=== PATIENT | male | born 1960 | race Two or more races ===

== ENCOUNTER 2021-01-09 12:17 | Outpatient (REF) | payer MEDICARE, MEDICAID, SELFPAY ==
--- NOTE | 2021-01-09 13:06 | ECG_ITS ---
Test Reason : HIGH RISK MED Blood Pressure : / mmHG Vent. Rate : 068 BPM Atrial Rate : 068 BPM P-R Int : 186 ms QRS Dur : 096 ms QT Int : 416 ms P-R-T Axes : 063 038 065 degrees QTc Int : 442 ms Normal sinus rhythm Normal ECG When compared with ECG of 24-OCT-2019 11:54, No significant change was found Referred By: Sylvain Castillo Electronically Signed By:IVET JACOBS
[2021-01-09 13:17] LABS: MANUAL DIFF FLAG NO
[2021-01-09 13:18] LABS: Basophils Percent Auto 0.4 % (0-2); Eosinophils Absolute Auto 0.1 X10*3/uL (0.0-0.4); Eosinophils Percent Auto 1.7 % (0-4); Hemoglobin 12.4 g/dl (14.0-18.0); Imm Gran Abs Auto 0.01 X10*3/uL (0.00-0.03); Imm Gran Pct Auto 0.2 % (0.0-0.4); Lymphocytes Absolute Auto 1.3 X10*3/uL (1.2-4.9); Lymphocytes Percent Auto 23.1 % (20-40); Mean Corpuscular HGB Conc 33.5 g/dl (31.0-36.0); Mean Corpuscular Hemoglobin 29.7 pg (27.0-33.0); Mean Corpuscular Volume 88.7 fL (80-98); Mean Platelet Volume 8.7 fL (9.4-12.4); Monocytes Absolute Auto 0.7 X10*3/uL (0.1-1.2); Monocytes Percent Auto 12.6 % (2-11); Neutrophils Absolute Auto 3.4 X10*3/uL (2.0-8.3); Platelet Count 272 X10*3/uL (160-400); Red Blood Count 4.17 X10*6/uL (4.60-5.80); Red Cell Distribution Width 13.1 % (11.0-16.0); White Blood Count 5.4 X10*3/uL (4.8-10.8)
[2021-01-09 13:31] LABS: Estimated Average Glucose 91 mg/dL; Hemoglobin A1c % 4.8 %
[2021-01-09 13:34] LABS: Alanine Aminotransferase 17 U/L (0-40); Alkaline Phosphatase 202 U/L (39-117); Aspartate Amino Transferase 17 U/L (5-37); Sodium 131 mmol/L (135-145)
[2021-01-09 13:35] LABS: Anion Gap 13 (12-20); Blood Urea Nitrogen 9 mg/dL (9-16); Calcium 9.1 mg/dL (8.4-10.2); Carbon Dioxide 23 mmol/L (22-29); Chloride 100 mmol/L (96-108); Cholesterol 222 mg/dL; Estimated Glomerular Filt Rate > 60; Glucose Random 99 mg/dL (60-115); HDL Cholesterol 72 mg/dL; LDL Cholesterol Calculated 141 mg/dl; Potassium 4.2 mmol/L (3.3-5.1); Sodium 132 mmol/L (135-145); Triglycerides 45 mg/dL
[2021-01-14 21:45] LABS: Prolactin 35.9 ng/mL (2.0-18.0)
[2021-01-15 11:17] LABS: Lacosamide 7.5 mcg/mL
== END 2021-01-09 12:18 | disposition home or self-care (01) ==
LOC: HO.LAB 12:17
PROVIDERS: Absent Provider Psychiatry & Neurology Child & Adolescent Psychiatry; PCP Family Medicine; Visit Provider Psychiatry & Neurology Neurology
DX: F20.9 Schizophrenia, unspecified (principal); Z79.899 Other long term (current) drug therapy
CPT/HCPCS: 36415; 80048; 80061; 80175; 80235; 83036; 84075; 84146; 84295; 84450; 84460; 85025; 93005

== ENCOUNTER 2021-05-27 11:05 | Outpatient (REF) | payer MEDICARE, MEDICAID, SELFPAY ==
[2021-05-27 14:35] LABS: Alanine Aminotransferase 19 U/L (0-40); Albumin Level 3.8 g/dL (3.5-5.0); Alkaline Phosphatase 95 U/L (39-117); Anion Gap 12 (12-20); Aspartate Amino Transferase 17 U/L (5-37); Bilirubin Total 0.3 mg/dL (0.0-1.0); Blood Urea Nitrogen 7 mg/dL (9-16); Calcium 9.1 mg/dL (8.4-10.2); Carbon Dioxide 24 mmol/L (22-29); Chloride 100 mmol/L (96-108); Estimated Glomerular Filt Rate > 60; Glucose Random 119 mg/dL (60-115); Potassium 3.8 mmol/L (3.3-5.1); Sodium 132 mmol/L (135-145); Total Protein 6.6 g/dL (6.5-8.0)
== END 2021-05-27 11:06 | disposition home or self-care (01) ==
LOC: HO.WFDLDS 11:05
PROVIDERS: Family Medicine; Visit Provider Internal Medicine
DX: E87.1 Hypo-osmolality and hyponatremia (principal)
CPT/HCPCS: 36415; 80053

== ENCOUNTER 2021-08-14 13:48 | Outpatient (REF) | payer MEDICARE, MEDICAID, SELFPAY ==
[2021-08-14 14:06] LABS: MANUAL DIFF FLAG NO
[2021-08-14 14:29] LABS: Basophils Percent Auto 0.2 % (0-2); Eosinophils Absolute Auto 0.2 X10*3/uL (0.0-0.4); Eosinophils Percent Auto 2.5 % (0-4); Hematocrit 37.3 % (42.0-52.0); Imm Gran Abs Auto 0.02 X10*3/uL (0.00-0.03); Imm Gran Pct Auto 0.3 % (0.0-0.4); Lymphocytes Absolute Auto 1.3 X10*3/uL (1.2-4.9); Lymphocytes Percent Auto 19.6 % (20-40); Mean Corpuscular HGB Conc 32.2 g/dl (31.0-36.0); Mean Corpuscular Hemoglobin 29.6 pg (27.0-33.0); Mean Corpuscular Volume 92.1 fL (80.0-98.0); Mean Platelet Volume 8.9 fL (9.4-12.4); Monocytes Absolute Auto 0.6 X10*3/uL (0.1-1.2); Neutrophils Absolute Auto 4.4 x10*3/uL (2.0-8.3); Neutrophils Percent Auto 68.4 % (45-73); Platelet Count 235 X10*3/uL (160-400); Red Blood Count 4.05 X10*6/uL (4.60-5.80); Red Cell Distribution Width 12.9 % (11.0-16.0); White Blood Count 6.4 X10*3/uL (4.8-10.8)
[2021-08-14 14:32] LABS: Osmolality, Serum 282 mosm/kg (281-305)
[2021-08-14 14:58] LABS: TSH reflex Free T4 0.88 uIU/mL (0.32-4.0)
[2021-08-14 15:00] LABS: Alanine Aminotransferase 19 U/L (0-40); Albumin Level 3.7 g/dL (3.5-5.0); Alkaline Phosphatase 108 U/L (39-117); Anion Gap 15 (12-20); Aspartate Amino Transferase 17 U/L (5-37); Bilirubin Total 0.3 mg/dL (0.0-1.0); Blood Urea Nitrogen 10 mg/dL (9-16); Calcium 8.8 mg/dL (8.4-10.2); Carbon Dioxide 22 mmol/L (22-29); Chloride 102 mmol/L (96-108); Estimated Glomerular Filt Rate > 60; Glucose Random 132 mg/dL (60-115); Iron 68 mcg/dL (45-160); Percent Iron Saturation 26 % (15-50); Sodium 135 mmol/L (135-145); Total Iron Binding Capacity 266 mcg/dL (228-428); Total Protein 6.4 g/dL (6.5-8.0); Unsaturated Iron Binding 198 ug/dL
== END 2021-08-14 13:49 | disposition home or self-care (01) ==
LOC: HO.LAB 13:48
PROVIDERS: PCP Family Medicine; Visit Provider Family Medicine
DX: Z00.00 Encounter for general adult medical examination without abnormal findings (principal); E87.1 Hypo-osmolality and hyponatremia; D64.9 Anemia, unspecified
CPT/HCPCS: 36415; 80053; 83540; 83930; 84443; 85025

== ENCOUNTER 2022-01-22 09:17 | Outpatient (REF) | payer MEDICARE, MEDICAID, SELFPAY ==
[2022-01-22 11:34] LABS: Anion Gap 15 (12-20); Blood Urea Nitrogen 10 mg/dL (9-16); Carbon Dioxide 23 mmol/L (22-29); Chloride 98 mmol/L (96-108); Estimated Glomerular Filt Rate > 60; Sodium 132 mmol/L (135-145)
[2022-01-22 11:35] LABS: Calcium 8.9 mg/dL (8.4-10.2); Glucose Random 123 mg/dL (60-115)
== END 2022-01-22 09:18 | disposition home or self-care (01) ==
LOC: HO.WFDLDS 09:17
PROVIDERS: Visit Provider Hospitalist
DX: E87.1 Hypo-osmolality and hyponatremia (principal)
CPT/HCPCS: 36415; 80048

== ENCOUNTER 2022-02-03 12:51 | Outpatient (REF) | payer MEDICARE, MEDICAID, SELFPAY ==
[2022-02-03 14:42] LABS: Anion Gap 17 (12-20); Blood Urea Nitrogen 8 mg/dL (9-16); Carbon Dioxide 23 mmol/L (22-29); Chloride 98 mmol/L (96-108); Estimated Glomerular Filt Rate > 60; Glucose Random 104 mg/dL (60-115); Potassium 4.6 mmol/L (3.3-5.1); Sodium 133 mmol/L (135-145)
== END 2022-02-03 12:52 | disposition home or self-care (01) ==
LOC: HO.WFDLDS 12:51
PROVIDERS: Visit Provider Family Medicine
DX: Z00.00 Encounter for general adult medical examination without abnormal findings (principal); E87.1 Hypo-osmolality and hyponatremia
CPT/HCPCS: 36415; 80048

== ENCOUNTER 2022-02-11 10:00 | Outpatient (REF) | payer MEDICARE, MEDICAID, SELFPAY ==
[2022-02-11 11:14] LABS: MANUAL DIFF FLAG NO
[2022-02-11 11:28] LABS: Basophils Percent Auto 0.3 % (0-2); Eosinophils Percent Auto 0.4 % (0-4); Hematocrit 39.4 % (42.0-52.0); Hemoglobin 12.9 g/dl (14.0-18.0); Imm Gran Abs Auto 0.03 X10*3/uL (0.00-0.03); Imm Gran Pct Auto 0.4 % (0.0-0.4); Lymphocytes Absolute Auto 1.4 X10*3/uL (1.2-4.9); Lymphocytes Percent Auto 18.5 % (20-40); Mean Corpuscular HGB Conc 32.7 g/dl (31.0-36.0); Mean Corpuscular Hemoglobin 29.6 pg (27.0-33.0); Mean Corpuscular Volume 90.4 fL (80.0-98.0); Mean Platelet Volume 9.9 fL (9.4-12.4); Monocytes Absolute Auto 0.7 X10*3/uL (0.1-1.2); Monocytes Percent Auto 8.8 % (2-11); Neutrophils Absolute Auto 5.5 x10*3/uL (2.0-8.3); Neutrophils Percent Auto 71.6 % (45-73); Platelet Count 245 X10*3/uL (160-400); Red Blood Count 4.36 X10*6/uL (4.60-5.80); Red Cell Distribution Width 12.8 % (11.0-16.0); White Blood Count 7.6 X10*3/uL (4.8-10.8)
[2022-02-11 11:55] LABS: Alanine Aminotransferase 21 U/L (0-40); Albumin Level 3.8 g/dL (3.5-5.0); Alkaline Phosphatase 97 U/L (39-117); Anion Gap 15 (12-20); Aspartate Amino Transferase 13 U/L (5-37); Bilirubin Total 0.4 mg/dL (0.0-1.0); Blood Urea Nitrogen 12 mg/dL (9-16); Calcium 8.8 mg/dL (8.4-10.2); Carbon Dioxide 23 mmol/L (22-29); Chloride 102 mmol/L (96-108); Cholesterol 254 mg/dL; Estimated Glomerular Filt Rate > 60; Glucose Fasting 144 mg/dL (60-99); HDL Cholesterol 73 mg/dL; Iron 170 mcg/dL (45-160); LDL Cholesterol Calculated 170 mg/dl; Percent Iron Saturation 60 % (15-50); Potassium 3.9 mmol/L (3.3-5.1); Sodium 136 mmol/L (135-145); Total Iron Binding Capacity 284 mcg/dL (228-428); Total Protein 6.5 g/dL (6.5-8.0); Triglycerides 58 mg/dL; Unsaturated Iron Binding 114 ug/dL
[2022-02-11 12:20] LABS: TSH reflex Free T4 0.83 uIU/mL (0.32-4.0)
== END 2022-02-11 10:01 | disposition home or self-care (01) ==
LOC: HO.WFDLDS 10:00
PROVIDERS: Visit Provider Family Medicine
DX: Z00.00 Encounter for general adult medical examination without abnormal findings (principal); D64.9 Anemia, unspecified
CPT/HCPCS: 36415; 80053; 80061; 83540; 84443; 85025

== ENCOUNTER 2022-04-20 11:08 | Outpatient (REF) | payer MEDICARE, MEDICAID, SELFPAY ==
[2022-04-20 13:52] LABS: MANUAL DIFF FLAG NO
[2022-04-20 14:00] LABS: Basophils Percent Auto 0.2 % (0-2); Eosinophils Percent Auto 0.6 % (0-4); Hematocrit 37.4 % (42.0-52.0); Hemoglobin 12.3 g/dl (14.0-18.0); Imm Gran Abs Auto 0.02 X10*3/uL (0.00-0.03); Imm Gran Pct Auto 0.4 % (0.0-0.4); Lymphocytes Absolute Auto 1.4 X10*3/uL (1.2-4.9); Mean Corpuscular HGB Conc 32.9 g/dl (31.0-36.0); Mean Corpuscular Hemoglobin 29.5 pg (27.0-33.0); Mean Corpuscular Volume 89.7 fL (80.0-98.0); Mean Platelet Volume 9.5 fL (9.4-12.4); Monocytes Absolute Auto 0.7 X10*3/uL (0.1-1.2); Monocytes Percent Auto 13.2 % (2-11); Neutrophils Absolute Auto 2.9 x10*3/uL (2.0-8.3); Neutrophils Percent Auto 58.6 % (45-73); Platelet Count 251 X10*3/uL (160-400); Red Blood Count 4.17 X10*6/uL (4.60-5.80); Red Cell Distribution Width 13.2 % (11.0-16.0)
[2022-04-20 14:13] LABS: Anion Gap 11 (12-20); Blood Urea Nitrogen 9 mg/dL (9-16); Calcium 8.7 mg/dL (8.4-10.2); Carbon Dioxide 25 mmol/L (22-29); Chloride 104 mmol/L (96-108); Estimated Glomerular Filt Rate > 60; Glucose Random 85 mg/dL (60-115); Potassium 4.1 mmol/L (3.3-5.1); Sodium 136 mmol/L (135-145)
== END 2022-04-20 11:09 | disposition home or self-care (01) ==
LOC: HO.WFDLDS 11:08
PROVIDERS: PCP Family Medicine; Visit Provider Student in an Organized Health Care Education/Training Program
DX: D64.9 Anemia, unspecified (principal); N39.0 Urinary tract infection, site not specified; E87.8 Other disorders of electrolyte and fluid balance, not elsewhere classified
CPT/HCPCS: 36415; 80048; 85025

== ENCOUNTER 2022-05-20 09:38 | Outpatient (REF) | payer MEDICARE, MEDICAID, SELFPAY ==
[2022-05-20 12:27] LABS: Anion Gap 13 (12-20); Blood Urea Nitrogen 10 mg/dL (9-16); Carbon Dioxide 26 mmol/L (22-29); Chloride 102 mmol/L (96-108); Estimated Glomerular Filt Rate > 60; Glucose Random 92 mg/dL (60-115); Potassium 3.8 mmol/L (3.3-5.1); Sodium 137 mmol/L (135-145)
== END 2022-05-20 09:39 | disposition home or self-care (01) ==
LOC: HO.WFDLDS 09:38
PROVIDERS: Visit Provider Family Medicine
DX: Z00.00 Encounter for general adult medical examination without abnormal findings (principal); E87.1 Hypo-osmolality and hyponatremia
CPT/HCPCS: 36415; 80048

== ENCOUNTER 2022-11-11 13:30 | Outpatient (AMB) | payer MEDICARE, MEDICAID, SELFPAY ==
--- NOTE | 2022-11-11 13:31 | MHC.PC.OV ---
Vital Signs 11/11/22 13:37 BMI Reason not done Patient refused/unable BP 112/62 Blood Pressure Location Lt brachial Position Sitting Respiration 16 Pulse 72 Pulse Source Pulse Oximeter Temp 97.8 F Temp Source Core Pulse Oximetry (%) 99 Intake Visit Reasons: [facility] 11/05/22 - seizures and UTI Intake Note: Patient is here for follow up on [facility] for seizures and UTI. Notes are in his chart. Allergies No Known Allergies Allergy (Unknown, Verified 11/11/22 14:01) none Medication List - Last Reconciled 11/11/22 by Faisal Radford CNP acetaminophen 650 mg (2 x 325 mg) PO Q6H PRN 30 days amoxicillin 875 mg PO BID bisacodyl 10 mg [place] DAILY 90 days cholecalciferol (vitamin D3) 50 mcg PO QAM diazepam (Valtoco) mg intranasal disposable gloves (Disposable Latex-Free Gloves) As directed size medium /large docusate sodium (Stool Softener) 200 mg (2 x 100 mg) PO BID ferrous gluconate 324 mg PO DAILY 30 days gabapentin 200 mg (2 x 100 mg) PO BEDTIME 30 days guaifenesin ER (Mucinex) 600 mg PO Q12H PRN lacosamide 150 mg PO 1 tab in am, 0.5 tabs at noon, 2 tabs in the pm; lactulose (Enulose) 30 mL PO TID 30 days lamotrigine 100 mg PO .evening lamotrigine 200 mg PO Q8H levetiracetam (Keppra) 250 mg PO BID levetiracetam (Keppra) 1,000 mg PO BID magnesium oxide 400 mg PO DAILY omeprazole magnesium (Prilosec OTC) 20 mg PO DAILY 90 days oxcarbazepine (Trileptal) 600 mg PO .afternoon oxcarbazepine 1 tab in the am, 2 at noon, and 3 at hs PO; oxcarbazepine (Trileptal) 300 mg PO .evening oxcarbazepine (Trileptal) 900 mg PO BID risperidone 1.5 mg PO BID PRN sennosides 17.2 mg PO BID sennosides (senna) 17.2 mg (2 x 8.6 mg) PO BID 30 days simethicone (Gas Relief 80 (simethicone)) 80 mg PO TID 90 days sodium chloride 1,000 mg PO BID sodium phosphates 19-7 gram/118 mL (Enema Disposable) 118 mL NM DAILY PRN 30 days starch (thickening) (Thick-It oral powder) 1 ea PO TIDWMEAL underpads As directed Tobacco use date assessed: 11/11/22 Dental Screening Dental Screen Date: 11/11/22 Did you have a dental visit in the last 12 months?: No Did you have a dental problem in the last 6 months where you did not have access to dental care?: No Was dental information given to patient?: No HPI HPI Comments History of Present Illness Details 61-year-old male with past medical history significant for TBI, right-sided hemiparesis, expressive aphasia, seizure disorder, and cognitive impairment presents for a follow-up visit. He lives in a intermediate and accompanied, in a wheelchair, by intermediate staff He was admitted at [facility] between 10/31/2022 and 11/05/2022 and treated for seizures and UTI. He was discharged back to intermediate on Augmentin and recommendation for urology follow-up No acute symptoms today Patient is at baseline pack intermediate staff [facility] Medical History TBI (traumatic brain injury) Surgical History History of craniotomy Family History Father Dementia Chronic mental illness Mother Hypertension Social History Housing: Other Housing Other:: Intermediate Patient Tobacco Use Status: Never used Tobacco e-Cigarette/Vaping Use: Never Used Second Hand Smoke Exposure: No service: No Current occupational status: disabled Current occupational exposures/hazards: No Cognitive needs: Yes Hearing needs: Yes Vision needs: No Questionnaire PHQ-9 Over the last 2 weeks, how often have you been bothered by any of the following problems? 1. Little interest or pleasure in doing things: not at all 2. Feeling down, depressed, or hopeless: not at all 3. Trouble falling or staying asleep, or sleeping too much: not at all 4. Feeling tired or having little energy: not at all 5. Poor appetite or overeating: not at all 6. Feeling bad about yourself - or that you are a failure or have let yourself or your family down: not at all 7. Trouble concentrating on things, such as reading the newspaper or watching television: not at all 8. Moving or speaking so slowly that other people could have noticed. Or the opposite - being so fidgety or restless that you have been moving around a lot more than usual: not at all 9. Thoughts that you would be better off or of hurting yourself in some way: not at all Total score: 0 Depression Screening Interpretation: Negative Source: Developed by Drs. Jose Aldana, Stephanie Lin, Shahriar Soto and colleagues, with an educational jose from [employer]. Thrive Questionnaire Date Thrive assessed: 05/20/22 KRYSTIAN-7 AMB Questionnaire KRYSTIAN-7 Date KRYSTIAN - 7 assessed: 05/20/22 Source: Developed by Drs. Jose Aldana, Stephanie Lin, Shahriar Soto and colleagues, with an educational jose from [employer]. Review of Systems Const Details: Const Denies chills, Denies fatigue, Denies fever(s), Denies headache(s) and Denies weakness ENT Denies change in vision, Denies dizziness, Denies headache(s), Denies hearing loss, Denies nasal congestion, Denies sinus pain, Denies sinus pressure and Denies sore throat Resp Denies cough, Denies dyspnea, Denies wheezing and Denies other (shortness of breath) Cardio Denies chest pain, Denies lightheadedness, Denies dyspnea and Denies other (palpitations) Neuro Denies dizziness, Denies headache(s), Denies numbness, Denies tingling and Denies weakness Psych Denies anxiety, Denies depression Endo Denies cold intolerance, Denies fatigue, Denies heat intolerance, Denies polydipsia and Denies polyuria Aller/Immun Denies wheezing Physical exam (Primary Care) Vital Signs: Last Vital Signs Temp 97.8 F 11/11/22 13:37 Pulse 72 11/11/22 13:37 Resp 16 11/11/22 13:37 BP 112/62 11/11/22 13:37 Pulse Ox 99 11/11/22 13:37 Tobacco/Smoking Status: Tobacco use Status Tobacco use date assessed 11/11/22 11/11/22 13:42 Patient Tobacco Use Status Never used Tobacco 11/11/22 13:34 e-Cigarette/Vaping Use Never Used 11/11/22 13:34 PHQ-9: PHQ-9 Score PHQ-9: Total score 0 11/11/22 14:04 Depression Screening Interpretation: Negative Thrive Assessment: Date of Thrive Assessment Date Thrive assessed 05/20/22 11/11/22 13:34 Const Other: Const General: well developed; No acute distress Nutritional Appearance: well nourished Orientation/consciousness: patient oriented x3 HEENT Head: Yes normocephalic and Yes atraumatic Eyes General: appearance normal, both eyes and all related structures Pupils: Equal, round and reactive pupils present EOM: EOMs intact bilaterally Resp Effort & Inspection: normal respiratory effort Auscultation: clear to auscultation bilaterally Cardio Rate: regular rate Rhythm: regular rhythm Heart sounds: S1 normal heart sound present, S2 normal heart sound present, no gallops, no murmurs and no rubs Bruits: no abdominal aortic bruits and no carotid bruits Neuro General: patient is alert, w/c bound, apparent focal neuro deficit Cranial nerves: Yes Equal, round and reactive pupils present Psych Affect: normal affect Assessment and Plan Assessment & Plan (1) Hospital discharge follow-up: Code(s): Z09 - Encounter for follow-up examination after completed treatment for conditions other than malignant neoplasm Plan: Patient presents for recent hospitalization follow-up visit He was treated for UTI and seizures He was discharged to the intermediate on Augmentin and recommendation for urology follow-up for recurrent UTI He is baseline per intermediate staff No acute symptoms today Urology referral made Follow-up with PCP as planned or return sooner with new or worsening symptoms Verbalized understanding and agreed with treatment plan. (2) Recurrent UTI: Code(s): N39.0 - Urinary tract infection, site not specified Plan: As above Orders: Referrals Urology Referral N39.0 - Urinary tract infection, site not specified Medications: New miscellaneous medical supply as directed; 1 month 2 ea 6RF miscellaneous medical supply Extra large briefs 1 month 140 ea 6RF miscellaneous medical supply Reusable under pads 1 month 2 ea 6RF miscellaneous medical supply Complete catheter kit 1 month 2 ea 6RF miscellaneous medical supply Extra large briefs 1 month 140 ea 6RF miscellaneous medical supply Reusable under pads 1 month 2 ea 6RF miscellaneous medical supply Complete catheter kit 1 month 2 ea 6RF miscellaneous medical supply Complete catheter kit 1 month 2 ea 6RF Refilled disposable gloves (Disposable Latex-Free Gloves) As directed size medium /large 1,000 ea 6RF R56.9 - Unspecified convulsions underpads As directed 72 ea 6RF R56.9 - Unspecified convulsions underpads As directed 72 ea 6RF R56.9 - Unspecified convulsions disposable gloves (Disposable Latex-Free Gloves) As directed size medium /large 1,000 ea 6RF R56.9 - Unspecified convulsions Coding Level of Care Code Est Pt Level 3 (38788) Diagnoses Hospital discharge follow-up Z09 Recurrent UTI N39.0 Time Spent (min) 25
[2022-11-11 13:37] VITALS: BP 112/62; PULSE 72; RESP 16; TEMP 36.6; O2SAT 99
== END 2022-11-11 14:16 | disposition home or self-care (01) ==
PROVIDERS: PCP Family Medicine; Visit Provider Nurse Practitioner Family
DX: Z09 Encounter for follow-up examination after completed treatment for conditions other than malignant neoplasm (principal); N39.0 Urinary tract infection, site not specified
CPT/HCPCS: 99213

== ENCOUNTER 2022-12-04 15:21 | Outpatient (AMB) | payer MEDICARE, MEDICAID, SELFPAY ==
--- NOTE | 2022-12-04 15:23 | MHC.PC.OV ---
Vital Signs 12/04/22 15:28 BP 120/72 Blood Pressure Location Lt brachial Position Sitting Pulse 70 Pulse Source Pulse Oximeter Pulse Oximetry (%) 97 Oxygen Delivery Method Room Air Intake Visit Reasons: Thrush on tongue Intake Note: pt is here for c/o thrush on tongue Ticket Speculator Required: No Accompanied by: Other Relationship Allergies No Known Allergies Allergy (Unknown, Verified 12/04/22 15:46) none Medication List - Last Reconciled 12/04/22 by Faisal Radford CNP acetaminophen 650 mg (2 x 325 mg) PO Q6H PRN 30 days bisacodyl 10 mg [place] DAILY 90 days cholecalciferol (vitamin D3) 50 mcg PO QAM diazepam (Valtoco) mg intranasal disposable gloves (Disposable Latex-Free Gloves) As directed size medium /large docusate sodium (Stool Softener) 200 mg (2 x 100 mg) PO BID ferrous gluconate 324 mg PO DAILY 30 days gabapentin 200 mg (2 x 100 mg) PO BEDTIME 30 days guaifenesin ER (Mucinex) 600 mg PO Q12H PRN lacosamide 150 mg PO 1 tab in am, 0.5 tabs at noon, 2 tabs in the pm; lactulose (Enulose) 30 mL PO TID 30 days lamotrigine 100 mg PO .evening lamotrigine 200 mg PO Q8H levetiracetam (Keppra) 250 mg PO BID levetiracetam (Keppra) 1,000 mg PO BID magnesium oxide 400 mg PO DAILY miscellaneous medical supply Extra large briefs 1 month miscellaneous medical supply Reusable under pads 1 month miscellaneous medical supply Complete catheter kit 1 month omeprazole 20 mg PO DAILY oxcarbazepine (Trileptal) 600 mg PO .afternoon oxcarbazepine 1 tab in the am, 2 at noon, and 3 at hs PO; oxcarbazepine (Trileptal) 300 mg PO .evening oxcarbazepine (Trileptal) 900 mg PO BID risperidone 1.5 mg PO BID PRN sennosides (senna) 17.2 mg (2 x 8.6 mg) PO BID 30 days simethicone (Gas Relief 80 (simethicone)) 80 mg PO TID 90 days sodium chloride 1,000 mg PO BID sodium phosphates 19-7 gram/118 mL (Enema Disposable) 118 mL [place] DAILY PRN 30 days starch (thickening) (Thick-It oral powder) 1 ea PO TIDWMEAL underpads As directed Tobacco use date assessed: 11/11/22 Dental Screening Dental Screen Date: 12/04/22 Did you have a dental visit in the last 12 months?: Yes Did you have a dental problem in the last 6 months where you did not have access to dental care?: No Was dental information given to patient?: Patient has dentist HPI HPI Comments History of Present Illness Details 61-year-old male, accompanied by longterm staff, presents with complaints of thrush on his tongue. According to longterm staff, the nurse noticed thrush on the the patient's tongue 5 days ago. He was on antibiotic last month for UTI. No acute symptoms PFSH Medical History TBI (traumatic brain injury) Surgical History History of craniotomy Family History Father Dementia Chronic mental illness Mother Hypertension Social History Housing: Other Housing Other:: Skilled Nursing Patient Tobacco Use Status: Never used Tobacco e-Cigarette/Vaping Use: Never Used Second Hand Smoke Exposure: No service: No Current occupational status: disabled Current occupational exposures/hazards: No Cognitive needs: Yes Hearing needs: Yes Vision needs: No Questionnaire Thrive Questionnaire Date Thrive assessed: 05/20/22 KRYSTIAN-7 AMB Questionnaire KRYSTIAN-7 Date KRYSTIAN - 7 assessed: 05/20/22 Source: Developed by Drs. Jose Aldana, Stephanie Lin, Shahriar Soto and colleagues, with an educational jose from [employer]. Review of Systems Const Details: Const Denies chills, Denies fatigue, Denies fever(s), Denies headache(s) and Denies weakness ENT Reports as per HPI Card Denies chest pain, Denies lightheadedness, Denies dyspnea and Denies other (Palpitations) Resp Denies cough, Denies dyspnea, Denies wheezing and Denies other ( shortness of breath) GI Denies abdominal pain, Denies melena, Denies hematochezia, Denies change in bowel habits, Denies dyspepsia and Denies nausea Denies hematuria and Denies dysuria Musc Denies abnormal gait, Denies myalgias, Denies arthralgias, Denies numbness and Denies tingling Skin/Breast Denies rash, Denies unusual bruising and Denies wounds Neuro Denies dizziness, Denies headache(s), Denies memory loss, Denies numbness, Denies Sensory deficit (Neuro), Denies tingling and Denies weakness Psych Denies anxiety and Denies depression Endo Denies fatigue Aller/Immun Denies wheezing Physical exam (Primary Care) Vital Signs: Last Vital Signs Pulse 70 12/04/22 15:28 BP 120/72 12/04/22 15:28 Pulse Ox 97 12/04/22 15:28 Oxygen Delivery Method Room Air 12/04/22 15:28 Tobacco/Smoking Status: Tobacco use Status Tobacco use date assessed 11/11/22 12/04/22 15:26 Patient Tobacco Use Status Never used Tobacco 12/04/22 15:26 e-Cigarette/Vaping Use Never Used 12/04/22 15:26 Thrive Assessment: Date of Thrive Assessment Date Thrive assessed 05/20/22 12/04/22 15:26 Const Other: Const General: well developed; No acute distress Nutritional Appearance: well nourished Orientation/consciousness: patient is alert, nonverbal HEENT Head is normocephalic Bilateral ear canal and TM are normal Nasal turbinates and oropharynx are pink and moist Sinuses are nontender with palpation No auricular or cervical lymphadenopathy White patches noted on the patient tongue; consistent with oral candidiasis Eyes General: appearance normal, both eyes and all related structures Pupils: Equal, round and reactive pupils present EOM: EOMs intact bilaterally Resp Effort & Inspection: normal respiratory effort Auscultation: clear to auscultation bilaterally Cardio Rate: regular rate Rhythm: regular rhythm Heart sounds: S1 normal heart sound present, S2 normal heart sound present, no gallops, no murmurs and no rubs Bruits: no abdominal aortic bruits and no carotid bruits Neuro General: patient is alert, nonverbal, follows commands Cranial nerves: Yes Equal, round and reactive pupils present Psych Affect: normal affect Assessment and Plan Assessment & Plan (1) Oral candidiasis: Code(s): B37.0 - Candidal stomatitis Plan: White patches noted on the patient tongue Fluconazole ordered. Take as prescribed Hold valtoco until completion of fluconazole Follow-up with worsening or new signs and symptoms Verbalized understanding and agreed with treatment plan. Medications: New fluconazole (Diflucan) 100 mg PO DAILY 7 days 7 tabs 0RF Coding Level of Care Code Est Pt Level 3 (94463) Diagnoses Oral candidiasis B37.0 Time Spent (min) 25
[2022-12-04 15:28] VITALS: BP 120/72; PULSE 70; O2SAT 97
== END 2022-12-04 16:19 | disposition home or self-care (01) ==
PROVIDERS: PCP Family Medicine; Visit Provider Nurse Practitioner Family
DX: B37.0 Candidal stomatitis (principal)
CPT/HCPCS: 99213

== ENCOUNTER 2023-01-11 14:59 | Outpatient (AMB) | payer MEDICARE, MEDICAID, SELFPAY ==
--- NOTE | 2023-01-11 13:39 | MHC.PC.OV ---
Vital Signs 01/11/23 15:07 Weight 211 lb BMI Reason not done Patient refused/unable BP 124/64 Blood Pressure Location Rt brachial Position Sitting Respiration 12 Pulse 72 Pulse Source Pulse Oximeter Temp 97.9 F Temp Source Temporal Artery Scan Pulse Oximetry (%) 99 Oxygen Delivery Method Room Air Intake Visit Reasons: [facility]/8-24/8-29/Seizures Intake Note: Patient's oncology social work states that all the miscellaneous medical supply on med list needs to be sent to [facility]. [phone] is the fax number to [facility] [employer] over orders. Accompanied by: heliarc welder Allergies No Known Allergies Allergy (Unknown, Verified 01/11/23 15:29) none Medication List - Last Reviewed 01/11/23 by Louise Villanueva MA acetaminophen 650 mg (2 x 325 mg) PO Q6H PRN 30 days bisacodyl 10 mg [place] DAILY 90 days cholecalciferol (vitamin D3) 50 mcg PO QAM diazepam (Valtoco) mg intranasal disposable gloves (Disposable Latex-Free Gloves) As directed size medium /large docusate sodium (Stool Softener) 200 mg (2 x 100 mg) PO BID ferrous gluconate 324 mg PO DAILY 30 days gabapentin 200 mg (2 x 100 mg) PO BEDTIME 30 days guaifenesin ER (Mucinex) 600 mg PO Q12H PRN lacosamide 150 mg PO 1 tab in am, 0.5 tabs at noon, 2 tabs in the pm; lactulose (Enulose) 30 mL PO TID 30 days lamotrigine 200 mg PO TID lamotrigine 100 mg PO BEDTIME levetiracetam (Keppra) 1,500 mg PO BID magnesium oxide 400 mg PO DAILY miscellaneous medical supply Extra large briefs 1 month miscellaneous medical supply Reusable under pads 1 month miscellaneous medical supply Complete catheter kit 1 month omeprazole 20 mg PO DAILY oxcarbazepine (Trileptal) 600 mg PO .afternoon oxcarbazepine (Trileptal) 300 mg PO .evening oxcarbazepine (Trileptal) 900 mg PO BEDTIME risperidone 2 mg PO BID PRN sennosides (senna) 17.2 mg (2 x 8.6 mg) PO BID 30 days simethicone (Gas Relief 80 (simethicone)) 80 mg PO TID 90 days sodium phosphates 19-7 gram/118 mL (Enema Disposable) 118 mL [place] DAILY PRN 30 days starch (thickening) (Thick-It oral powder) 1 ea PO TIDWMEAL underpads As directed Tobacco use date assessed: 11/11/22 Dental Screening Dental Screen Date: 01/11/23 Did you have a dental visit in the last 12 months?: Yes Did you have a dental problem in the last 6 months where you did not have access to dental care?: No Was dental information given to patient?: Patient has dentist HPI HPI Comments History of Present Illness Details 62-year-old male with past medical history significant for TBI, right-sided hemiparesis, expressive aphasia, seizure disorder, and cognitive impairment, presents for a follow-up visit. [facility] and accompanied, in a wheelchair, by director group sales. He was admitted at [facility] between 12/25/2022 and 12/29/2022 and treated for seizure-like activity. At home, he takes Vimpat, oxcarbazepine, lamotrigine, and Keppra for seizure disorder. His roommate at the prison was positive for COVID. Patient's initial COVID test was negative; repeat COVID test was positive; CXR unremarkable. Sodium was elevated, 150; blood work was otherwise unremarkable. Blood culture was negative. However, urine culture grew E coli; he completed 5-day course of ceftriaxone. Keppra was increased from 1250 mg twice daily to 1500 mg twice daily. He was advised to hold sodium chloride and follow-up with Neurology and his PCP. He was [facility] back to the prison. Patted marketing and communications officer, the patient has a follow-up appointment with Neurology next month. No acute symptoms today. Patient is at baseline pack director group sales. COUNTS INCLUDE 234 BEDS AT THE [facility] Medical History TBI (traumatic brain injury) Surgical History History of craniotomy Family History Father Dementia Chronic mental illness Mother Hypertension Social History (Reviewed 12/04/22 @ 15:24 by JAMES Lieberman Housing: Other Housing Other:: Residential Patient Tobacco Use Status: Never used Tobacco e-Cigarette/Vaping Use: Never Used Second Hand Smoke Exposure: No service: No Current occupational status: disabled Current occupational exposures/hazards: No Cognitive needs: Yes Hearing needs: Yes Vision needs: No Questionnaire Thrive Questionnaire Date Thrive assessed: 05/20/22 KRYSTIAN-7 AMB Questionnaire KRYSTIAN-7 Date KRYSTIAN - 7 assessed: 05/20/22 Source: Developed by Drs. Jose Aldana, Stephanie Lin, Shahriar Soto and colleagues, with an educational jose from [employer]. Review of Systems Const Details: Const Details: Const Denies chills, Denies fatigue, Denies fever(s), Denies headache(s) and Denies weakness ENT Denies dizziness and Denies headache(s) Card Denies chest pain, Denies lightheadedness, Denies dyspnea and Denies other (Palpitations) Resp Denies cough, Denies dyspnea, Denies wheezing and Denies other ( shortness of breath) GI Denies abdominal pain, Denies melena, Denies hematochezia, Denies change in bowel habits, Denies dyspepsia and Denies nausea Denies hematuria and Denies dysuria Musc Denies abnormal gait, Denies myalgias, Denies arthralgias, Denies numbness and Denies tingling Skin/Breast Denies rash, Denies unusual bruising and Denies wounds Neuro Denies dizziness, Denies headache(s), Denies memory loss, Denies numbness, Denies Sensory deficit (Neuro), Denies tingling and Denies weakness Psych Denies anxiety and Denies depression Endo Denies fatigue Aller/Immun Denies wheezing Physical exam (Primary Care) Tobacco/Smoking Status: Tobacco use Status Tobacco use date assessed 11/11/22 01/11/23 13:52 Patient Tobacco Use Status Never used Tobacco 01/11/23 13:52 e-Cigarette/Vaping Use Never Used 01/11/23 13:52 Thrive Assessment: Date of Thrive Assessment Date Thrive assessed 05/20/22 01/11/23 13:52 Const Other: Const Other: Const General: well developed; No acute distress Nutritional Appearance: well nourished Orientation/consciousness: patient is alert, nonverbal HEENT Head: Yes normocephalic and Yes atraumatic Eyes General: appearance normal, both eyes and all related structures Pupils: Equal, round and reactive pupils present EOM: EOMs intact bilaterally Resp Effort & Inspection: normal respiratory effort Auscultation: clear to auscultation bilaterally Cardio Rate: regular rate Rhythm: regular rhythm Heart sounds: S1 normal heart sound present, S2 normal heart sound present, no gallops, no murmurs and no rubs Bruits: no abdominal aortic bruits and no carotid bruits Neuro General: patient is alert, nonverbal, follows commands Cranial nerves: Yes Equal, round and reactive pupils present Psych Affect: normal affect Assessment and Plan Assessment & Plan (1) Seizures: Code(s): R56.9 - Unspecified convulsions Plan: Stable Continue with current treatment plan Follow-up with Neurology as scheduled Follow-up with PCP later this month as scheduled Return sooner with new or worsening symptoms Verbalized understanding and agreed with treatment plan. Medications: Changed From lamotrigine 200 mg PO Q8H 90 tabs 0RF To lamotrigine 200 mg PO TID Refilled miscellaneous medical supply Extra large briefs 1 month 140 ea 6RF miscellaneous medical supply Reusable under pads 1 month 2 ea 6RF miscellaneous medical supply Complete catheter kit 1 month 2 ea 6RF Coding Level of Care Code Est Pt Level 3 (19646) Diagnoses Seizures R56.9
[2023-01-11 15:07] VITALS: BP 124/64; PULSE 72; RESP 12; TEMP 36.6; O2SAT 99
== END 2023-01-11 16:25 | disposition home or self-care (01) ==
PROVIDERS: PCP Family Medicine; Visit Provider Nurse Practitioner Family
DX: R56.9 Unspecified convulsions (principal)
CPT/HCPCS: 99213

== ENCOUNTER 2023-01-20 14:08 | Outpatient (AMB) | payer MEDICARE, MEDICAID, SELFPAY ==
--- NOTE | 2023-01-20 14:19 | MHC.OFFVIS ---
Intake Intake Visit Reasons: Urinary tract infection Intake Note: New Patient presents for initial visit recurrent uti Urology Medications: none Blood Thinner: none PVR: 58ml's Green House Manager Required: No Accompanied by: CUSTOMER ACCOUNT COORDINATOR Allergies No Known Allergies Allergy (Unknown, Verified 01/20/23 14:51) none Medication List - Last Reconciled 01/20/23 by MAKENZIE AntonioP-BC acetaminophen 650 mg (2 x 325 mg) PO Q6H PRN 30 days ascorbic acid (vitamin C) 1 g PO DAILY 90 days bisacodyl 10 mg MD DAILY 90 days cholecalciferol (vitamin D3) 50 mcg PO QAM diazepam (Valtoco) mg intranasal disposable gloves (Disposable Latex-Free Gloves) As directed size medium /large docusate sodium (Stool Softener) 200 mg (2 x 100 mg) PO BID ferrous gluconate 324 mg PO DAILY 30 days gabapentin 200 mg (2 x 100 mg) PO BEDTIME 30 days guaifenesin ER (Mucinex) 600 mg PO Q12H PRN lacosamide 150 mg PO 1 tab in am, 0.5 tabs at noon, 2 tabs in the pm; lactulose (Enulose) 30 mL PO TID 30 days lamotrigine 200 mg PO TID lamotrigine 100 mg PO BEDTIME levetiracetam (Keppra) 1,500 mg PO BID magnesium oxide 400 mg PO DAILY methenamine hippurate 1 g PO DAILY 90 days miscellaneous medical supply Extra large briefs 1 month miscellaneous medical supply Reusable under pads 1 month miscellaneous medical supply Complete catheter kit 1 month omeprazole 20 mg PO DAILY oxcarbazepine (Trileptal) 600 mg PO .afternoon oxcarbazepine (Trileptal) 300 mg PO .evening oxcarbazepine (Trileptal) 900 mg PO BEDTIME risperidone 2 mg PO BID PRN sennosides (senna) 17.2 mg (2 x 8.6 mg) PO BID 30 days simethicone (Gas Relief 80 (simethicone)) 80 mg PO TID 90 days sodium phosphates 19-7 gram/118 mL (Enema Disposable) 118 mL MD DAILY PRN 30 days starch (thickening) (Thick-It oral powder) 1 ea PO TIDWMEAL tamsulosin 0.4 mg PO BEDTIME 90 days underpads As directed HPI HPI Comments History of Present Illness Details Andrei is a pleasant 62 year old male patient of Dr. Oliva who is accompnaied by his CUSTOMER ACCOUNT COORDINATOR worker from his snf. He has a PMH of a TBI, constipation, and seizures. He presents to the office today as a new patient for recurrent urinary tract infections. Much of today's history is provided by CUSTOMER ACCOUNT COORDINATOR worker from snf as patient slow to respond and answers questions inappropriately at times. CUSTOMER ACCOUNT COORDINATOR worker reports patient has had recurrent urinary tract infections over the last few months. She reports typically urinary tract infections are further investigated when patient experiences foul-smelling urine. She discusses patient is typically incontinent of urine. She discusses patient's previous hospitalization due to seizures at which time patient was found to have a urinary tract infection. Unable to obtain urine for urinalysis today however PVR 58 mL. Discussed obtaining retroperitoneal ultrasound for further assessment evaluation as well as PSA. Discussed trial of tamsulosin 0.4 mg daily to assist with complete bladder emptying. Discussed methenamine verses vitamin-C or low-dose antibiotic suppression therapy for recurrent urinary tract infections. Discussed potential near future in office cystoscopy if symptoms persist and/or worsen. She otherwise denies patient to have experienced any fever, chills, and or hematuria. [facility] Medical History Constipation Seizures TBI (traumatic brain injury) Surgical History History of craniotomy Family History Father Dementia Chronic mental illness Mother Hypertension Social History Housing: Other Housing Other:: Alf Patient Tobacco Use Status: Never used Tobacco e-Cigarette/Vaping Use: Never Used Second Hand Smoke Exposure: No service: No Current occupational status: disabled Current occupational exposures/hazards: No Cognitive needs: Yes Hearing needs: Yes Vision needs: No Review of Systems Const Reports as per HPI Eyes Reports no additional complaints ENT Reports no additional complaints Card Reports no additional complaints Physical Exam Const General: cooperative, comfortable, no acute distress, well developed, alert and awake Orientation/consciousness: oriented to person Limitations: wheelchair Resp Effort & Inspection: normal respiratory effort Neuro General: oriented to person Extrem General: Yes normal to inspection Psych Appearance: well kempt Mental Status: other (patient with PMH of TBI slow to respond and poor historian) Attitude: cooperative Insight: Limited insight present (Psych) Judgement: Limited judgement present (Psych) Office Procedures Post Void Residual Post Residual Void Post Void Residual (PVR): 58 [id number] Void Residual by ultrasound Assessment & Plan Assessment & Plan (1) Recurrent UTI: Code(s): N39.0 - Urinary tract infection, site not specified Plan Unable to obtain urine for urinalysis however PVR 58ml's Discussed at length potential causes for recurrent urinary tract infections. Will obtain retroperitoneal ultrasound for further assessment evaluation. Start methenamine, vitamin-C, and Flomax as discussed and prescribed. Discussed UTI prevention with increasing fluid intake, behavioral therapy with timed voiding/scheduled toileting, perineal hygiene,, and management of constipation with stool softeners and increased fiber intake. Will obtain PSA for further assessment evaluation. Follow-up in 1-2 months with imaging and lab to be completed prior; or sooner with any issues, concerns, and or questions. Orders: Orders AMB Post Void Residual by ultrasound 01/20/23 N39.0 - Urinary tract infection, site not specified US retroperitoneal comp 01/20/23 N39.0 - Urinary tract infection, site not specified Prostate Specific Antigen 01/20/23 N40.0 - Benign prostatic hyperplasia without lower urinary tract symptoms Medications: New methenamine hippurate 1 g PO DAILY 90 days 90 tabs 1RF N39.0 - Urinary tract infection, site not specified ascorbic acid (vitamin C) 1 g PO DAILY 90 days 90 tabs 1RF N39.0 - Urinary tract infection, site not specified tamsulosin 0.4 mg PO BEDTIME 90 days 90 caps 1RF N13.8 - Other obstructive and reflux uropathy, N40.1 - Benign prostatic hyperplasia with lower urinary tract symptoms Patient Instructions: The patient had an opportunity to ask questions regarding the treatment plan. All questions were answered. Physical exam, labs, and imaging were discussed and reviewed in detail. As well as risks, benefits, and discussion of treatment choices. No major barriers to understanding were identified. The patient expressed understanding and agreement with the above treatment plan. The patient was made aware they should contact our office by phone for worsening of their current condition, the appearance of new symptoms, or with any questions or concerns. Compliance is encouraged with any medications and follow up testing that is ordered. It is a privilege to be allowed the opportunity to participate in? your urological care.? Again, if you have any questions or concerns If you have any questions or concerns please do not hesitate to contact me. The office is [phone]. This note is constructed using voice recognition software. While every effort has been made to ensure accuracy maint mechanic errors may have been included. Yours sincerely, DAVID Antonio Coding Level of Care Code New Pt Level 4 (83480) Diagnoses Recurrent UTI N39.0 CPT Codes Post Residual Void - PVR CPT Code: 99455-Bovo Void Residual by ultrasound ([id number])
== END 2023-01-20 14:52 | disposition home or self-care (01) ==
PROVIDERS: PCP Family Medicine; Visit Provider Nurse Practitioner Family
DX: N39.0 Urinary tract infection, site not specified (principal)
CPT/HCPCS: 99204

== ENCOUNTER → 2023-01-20 14:08 | Outpatient (BNVA) | payer MEDICARE, MEDICAID, SELFPAY | PROVIDERS: PCP Family Medicine; Visit Provider Nurse Practitioner Family | DX: N39.0 Urinary tract infection, site not specified (principal) | CPT/HCPCS: 51798 ==

== ENCOUNTER → 2023-03-01 09:20 | Outpatient (BNVA) | payer MEDICARE, MEDICAID, SELFPAY | PROVIDERS: PCP Family Medicine; Visit Provider Nurse Practitioner Family ==

== ENCOUNTER 2023-03-02 09:37 | Outpatient (AMB) | payer MEDICARE, MEDICAID, SELFPAY ==
--- NOTE | 2023-03-02 09:40 | A.OFFVIS_ITS ---
Intake Vital Signs 03/02/23 09:42 BMI Reason not done Patient refused/unable BP 93/59 L Blood Pressure Location Lt brachial Position Sitting Pulse 84 Pulse Source Pulse Oximeter Pulse Oximetry (%) 96 Oxygen Delivery Method Room Air Intake Visit Reasons: Chronic constipation Intake Note: Pt presents to the office today for chronic constipation. Pt is accompanied by the group program manager Stephanie. Patients solar panel installation supervisor states the Andrei has a bowel movement at least once a day. Pt does need a suppository everyday. Allergies No Known Allergies Allergy (Unknown, Verified 03/02/23 09:43) none HPI HPI Comments History of Present Illness Details 62 y.o M with PMH of TBI s/p SERVICE DESK SPECIALIST shunt, m inimally verbal, wheelchair bound, seizure disorder, remote hx of SBO s/p VIKTORIYA 2011, who presents from long-term for another opinion on severe constipation. Pt previously established with [facility] (Robina SERRANO) and referral for [facility] was initiated earlier this year when the pt was moving his bowel once every 2-3 days however since then he has also been seen by colorectal surgery (Dr Mares) and has had following medications added: Miralax 17g BID Reglan 10 QID Milk of mag 30 ml BID Previously was already on Linzess 290 Senna 17.2 BID Bisacodyl supp 10mg daily With the addition of medications through [facility] in October pt now has regular bowel habits. Obstetric Anaesthetist reports at least once BM a day which is soft. No blood in BM. No grunting/straining or discomfort while passing a BM. Has pureed diet and long-term includes fiber sources such as oatmeal, green smoothies. As outlined above pt has limited mobility and has PT but mostly for upper body strength. [facility] Medical History Constipation Seizures TBI (traumatic brain injury) Surgical History History of craniotomy Family History Father Dementia Chronic mental illness Mother Hypertension Social History Housing: Other Housing Other:: Alf Patient Tobacco Use Status: Never used Tobacco e-Cigarette/Vaping Use: Never Used Second Hand Smoke Exposure: No service: No Current occupational status: disabled Current occupational exposures/hazards: No Cognitive needs: Yes Hearing needs: Yes Vision needs: No Physical Exam Vital Signs: Last Vital Signs Pulse 84 03/02/23 09:42 BP 93/59 L 03/02/23 09:42 Pulse Ox 96 03/02/23 09:42 Oxygen Delivery Method Room Air 03/02/23 09:42 Gen appear: NAD HEENT: nonicteric, no cervical lymphadenopathy Chest: CTA CVS: Regular S1/S2 Abd: soft, nondistended Neuro: Awake, answers in yes/no Assessment & Plan Assessment & Plan (1) Constipation: Code(s): K59.00 - Constipation, unspecified (2) TBI (traumatic brain injury): Code(s): S06.9X9A - Unspecified intracranial injury with loss of consciousness of unspecified duration, initial encounter Plan Reviewed with the linoleum layer apprentice that unfortunately constipation fairly common in pts with limited mobility due to hypomotility, lack of urge to defecate and sometim es lack of coordination for proper evacuation. Diet also plays a role but seems that long-term making extra effort to include fiber sources in pureed diet. Plan: - Currently appears to be doing well on current bowel regimen and would not make any changes. - Recommend PT exercises for legs as well - dionne bending knees towards the abd, may be more tolerable laying sideways - Abd massage 3-4 times a day from RLQ to RUQ to LUQ to LLQ. - Increase hydration as long as okayed by PCP (hx of SIADH and hyponatremia) - Will check labs to r/o other causes such as hypothyroidism, electrolyte abnormality etc. - Follow up in 3 months Orders: Orders Calcium Today K59.00 - Constipation, unspecified Comprehensive Met. Panel Today K59.00 - Constipation, unspecified TSH reflex Free T4 Today K59.00 - Constipation, unspecified Magnesium Today K59.00 - Constipation, unspecified Coding Level of Care Code New Pt Level 4 (87350) Diagnoses Constipation K59.00 TBI (traumatic brain injury) S06.9X9A
[2023-03-02 09:42] VITALS: BP 93/59; PULSE 84; O2SAT 96
== END 2023-03-02 10:15 | disposition home or self-care (01) ==
PROVIDERS: PCP Family Medicine; Visit Provider Internal Medicine
DX: K59.00 Constipation, unspecified (principal); S06.9X9A Unspecified intracranial injury with loss of consciousness of unspecified duration, initial encounter
CPT/HCPCS: 99204

== ENCOUNTER 2023-03-02 09:37 | Outpatient (REF) | payer MEDICARE, MEDICAID, SELFPAY ==
[2023-03-02 12:36] LABS: Alanine Aminotransferase 23 U/L (0-40); Albumin Level 3.8 g/dL (3.5-5.0); Alkaline Phosphatase 107 U/L (39-117); Anion Gap 14 (12-20); Aspartate Amino Transferase 24 U/L (5-37); Bilirubin Total 0.3 mg/dL (0.0-1.0); Blood Urea Nitrogen 16 mg/dL (9-16); Calcium 9.6 mg/dL (8.4-10.2); Carbon Dioxide 26 mmol/L (22-29); Chloride 108 mmol/L (96-108); Estimated Glomerular Filt Rate > 60; Glucose Random 95 mg/dL (60-115); Magnesium 2.5 mg/dL (1.6-2.6); Potassium 3.9 mmol/L (3.3-5.1); Sodium 144 mmol/L (135-145)
[2023-03-02 12:50] LABS: Prostate Specific Antigen 24.74 ng/mL (<0.05-4.0)
[2023-03-02 12:55] LABS: TSH reflex Free T4 0.77 uIU/mL (0.32-4.0)
== END 2023-03-02 09:38 | disposition home or self-care (01) ==
LOC: HO.LAB 09:37
PROVIDERS: Absent Provider Nurse Practitioner Family; PCP Family Medicine; Visit Provider Internal Medicine
DX: N40.0 Benign prostatic hyperplasia without lower urinary tract symptoms (principal); K59.09 Other constipation; S06.9X9A Unspecified intracranial injury with loss of consciousness of unspecified duration, initial encounter; Z79.899 Other long term (current) drug therapy; Z12.5 Encounter for screening for malignant neoplasm of prostate
CPT/HCPCS: 36415; 80053; 83735; 84153; 84443; 99202

== ENCOUNTER 2023-03-11 11:05 | Outpatient (AMB) | payer MEDICARE, MEDICAID, SELFPAY ==
--- NOTE | 2023-03-11 11:12 | A.OFFPC_ITS ---
Vital Signs 03/11/23 11:23 BMI Reason not done Patient refused/unable BP 118/72 Blood Pressure Location Lt brachial Position Sitting Pulse 91 Pulse Source Pulse Oximeter Pulse Oximetry (%) 98 Oxygen Delivery Method Room Air Intake Visit Reasons: f/u chronic conditions Intake Note: Patient is here for follow up on chronic conditions. Patient's health care worker requesting urine test because urine has been looking and smelling funky for a few days. Allergies No Known Allergies Allergy (Unknown, Verified 03/11/23 11:15) none Tobacco use date assessed: 03/11/23 HPI f/u chronic conditions HPI Details 62 y/o male presents to f/u chronic cond itions. Pt's health care work is requesting a urine test due to foul smelling urine and discoloration. They note bowel regimen have much improved his constipation. [facility] Medical History Constipation Seizures TBI (traumatic brain injury) Surgical History History of craniotomy Family History Father Dementia Chronic mental illness Mother Hypertension Social History Housing: Other Housing Other:: [facility] Patient Tobacco Use Status: Never used Tobacco e-Cigarette/Vaping Use: Never Used Second Hand Smoke Exposure: No service: No Current occupational status: disabled Current occupational exposures/hazards: No Cognitive needs: Yes Hearing needs: Yes Vision needs: No Questionnaire Thrive Questionnaire Date Thrive assessed: 05/20/22 KRYSTIAN-7 AMB Questionnaire KRYSTIAN-7 Date KRYSTIAN - 7 assessed: 05/20/22 Source: Developed by Drs. Jose Aldana, Stephanie Lin, Shahriar Soto and colleagues, with an educational jose from [employer] Review of Systems Const Denies chills, Denies fatigue, Denies fever(s), Denies headache(s) and Denies weakness ENT Denies dizziness and Denies headache(s) Card Denies chest pain, Denies lightheadedness, Denies dyspnea and Denies other (Palpitations) Resp Denies cough, Denies dyspnea, Denies wheezing and Denies other ( shortness of breath) Musc Denies numbness and Denies tingling Neuro Denies dizziness, Denies headache(s), Denies numbness, Denies tingling, Denies paresthesias and Denies weakness Psych Denies anxiety and Denies depression Endo Denies fatigue Aller/Immun Denies wheezing Physical exam (Primary Care) Vital Signs: Last Vital Signs Pulse 91 03/11/23 11:23 BP 118/72 03/11/23 11:23 Pulse Ox 98 03/11/23 11:23 Oxygen Delivery Method Room Air 03/11/23 11:23 Tobacco/Smoking Status: Tobacco use Status Tobacco use date assessed 03/11/23 03/11/23 11:19 Patient Tobacco Use Status Never used Tobacco 03/11/23 11:14 e-Cigarette/Vaping Use Never Used 03/11/23 11:14 Thrive Assessment: Date of Thrive Assessment Date Thrive assessed 05/20/22 03/11/23 11:14 Const General: no acute distress and well developed Nutritional Appearance: well nourished Orientation/consciousness: patient oriented x3 HENMT Head: Yes normocephalic and Yes atraumatic Eyes General: appearance normal, both eyes and all related structures Pupils: Equal, round and reactive pupils present EOM: EOMs intact bilaterally Resp Effort & Inspection: normal respiratory effort Auscultation: clear to auscultation bilaterally Cardio Rate: regular rate Rhythm: regular rhythm Heart sounds: S1 normal heart sound present, S2 normal heart sound present, no gallops, no murmurs and no rubs Neuro General: patient oriented x3 and gait normal Cranial nerves: Yes Equal, round and reactive pupils present Psych Affect: normal affect Assessment and Plan Assessment & Plan (1) Foul smelling urine: Code(s): R82.90 - Unspecified abnormal findings in urine Plan: Urine?has?an?abnormal?odor?and?is?darker?than?usual. Possible?UTI Will?send?urine?for?urinalysis?and?culture If?positive?will?treat (2) Constipation: Code(s): K59.00 - Constipation, unspecified Plan: Aide notes?that?bowel?movements?are?quite?regular. No?changes?to?his?bowel?regimen (3) Hyponatremia: Code(s): E87.1 - Hypo-osmolality and hyponatremia Plan: Sodium?levels?have?been?well?controlled?with?sodium,?1?g Continue?current?regimen Follow-up?with?nephrology?as?recommended (4) SIADH (syndrome of inappropriate ADH production): Code(s): E22.2 - Syndrome of inappropriate secretion of antidiuretic hormone Plan: No?fluid?restrictions Stable Follow-up?with?nephrology?as?recommended (5) Seizures: Code(s): R56.9 - Unspecified convulsions Plan: Stable Continue?antiseizure?medications?as?prescribed Orders: Orders TSH reflex Free T4 1 Month Z00.00 - Encounter for general adult medical examination without abnormal findings UA and rflx microscopic Today R82.90 - Unspecified abnormal findings in urine Urine Culture Today R82.90 - Unspecified abnormal findings in urine Comprehensive Capay. Panel Fast 1 Month Z00.00 - Encounter for general adult medical examination without abnormal findings Complete Blood Count Auto Diff 1 Month Z00.00 - Encounter for general adult medical examination without abnormal findings Lipid Panel 1 Month Z00.00 - Encounter for general adult medical examination without abnormal findings Microalbumin, Random (w Creat) 1 Month I10 - Essential (primary) hypertension UA and rflx microscopic 1 Month Z00.00 - Encounter for general adult medical examination without abnormal findings Coding Level of Care Code Est Pt Level 4 (37715) Diagnoses Foul smelling urine R82.90 Constipation K59.00 Hyponatremia E87.1 SIADH (syndrome of inappropriate ADH production) E22.2 Seizures R56.9
[2023-03-11 11:23] VITALS: BP 118/72; PULSE 91; O2SAT 98
== END 2023-03-11 12:03 | disposition home or self-care (01) ==
PROVIDERS: PCP Family Medicine; Visit Provider Family Medicine
DX: R82.90 Unspecified abnormal findings in urine (principal); E22.2 Syndrome of inappropriate secretion of antidiuretic hormone; R56.9 Unspecified convulsions; K59.00 Constipation, unspecified
CPT/HCPCS: 99214

== ENCOUNTER 2023-04-09 13:02 | Outpatient (REF) | payer MEDICARE, MEDICAID, SELFPAY ==
--- NOTE | ~2023-04-09 | US_ITS ---
EXAMINATION: US RETROPERITONEAL COMPLETE (RENAL) CLINICAL INFORMATION: Urinary tract infection, site not specified. COMPARISON: None available. TECHNIQUE: Real-time imaging of the kidneys and bladder. Limited visualization due to bowel gas. FINDINGS: RIGHT KIDNEY: 11.0 x 4.6 x 4.8 cm (SAG x AP x TRV). No hydronephrosis. No renal calculi. Limited visualization. LEFT KIDNEY: 10.6 x 6.3 x 6.0 cm (SAG x AP x TRV). The kidney is normal in size, contour, and echogenicity. Renal cortical thickness is normal. No calculi or focal parenchymal lesions. No hydronephrosis. BLADDER: Bladder partially distended, limiting evaluation, as patient incontinent of urine. Prevoid bladder volume is 123 mL. Per dinkey motor operator statement, the patient is disabled and unable to void on command, and therefore postvoid images were not obtained. ADDITIONAL FINDINGS: Prostate volume is 36.4 mL. US/US retroperitoneal comp IMPRESSION: 1. No hydronephrosis. No renal calculi. Limited visualization. 2. Limited evaluation of bladder as detailed above. 3. Prostate volume is 36.4 mL.
== END 2023-04-09 13:03 | disposition home or self-care (01) ==
LOC: HO.HMGCX 13:02
PROVIDERS: PCP Family Medicine; Visit Provider Nurse Practitioner Family
DX: N39.0 Urinary tract infection, site not specified (principal)
CPT/HCPCS: 76770

== ENCOUNTER 2023-04-15 11:58 | Outpatient (AMB) | payer MEDICARE, MEDICAID, SELFPAY ==
--- NOTE | 2023-04-15 12:13 | A.OFFPC_ITS ---
Vital Signs 04/15/23 12:17 BP 118/64 Blood Pressure Location Lt brachial Position Sitting Pulse 70 Pulse Source Pulse Oximeter Pulse Oximetry (%) 99 Oxygen Delivery Method Room Air Intake Visit Reasons: [facility] discharge Intake Note: Patient is here for [facility] discharge, patient was unresponsive. Allergies No Known Allergies Allergy (Unknown, Verified 04/15/23 12:15) none Tobacco use date assessed: 04/15/23 HPI [facility] discharge HPI Details 62 y/o male with hx of TBI and seizure d bulmaro presents to f/u [facility] visit 04/03/23 with report of AMS. No evidence of infection on work-up in ED, mental status improved to point he had been talking and interacting again. [facility] Medical History Constipation Seizures TBI (traumatic brain injury) Surgical History History of craniotomy Family History Father Dementia Chronic mental illness Mother Hypertension Social History Housing: Other Housing Other:: Nursing Home Patient Tobacco Use Status: Never used Tobacco e-Cigarette/Vaping Use: Never Used Second Hand Smoke Exposure: No service: No Current occupational status: disabled Current occupational exposures/hazards: No Cognitive needs: Yes Hearing needs: Yes Vision needs: No Questionnaire Thrive Questionnaire Date Thrive assessed: 05/20/22 KRYSTIAN-7 AMB Questionnaire KRYSTIAN-7 Date KRYSTIAN - 7 assessed: 05/20/22 Source: Developed by Drs. Jose Aldana, Stephanie Lin, Shahriar Soto and colleagues, with an educational jose from [employer]. Review of Systems Const Denies chills, Denies fatigue, Denies fever(s), Denies headache(s) and Denies weakness ENT Denies dizziness and Denies headache(s) Card Denies dyspnea Resp Denies cough, Denies dyspnea, Denies wheezing and Denies other (shortness of homer ath) Musc Denies numbness and Denies tingling Neuro Denies dizziness, Denies headache(s), Denies numbness, Denies tingling and Denies weakness Psych Denies anxiety and Denies depression Endo Denies fatigue Aller/Immun Denies wheezing Physical exam (Primary Care) Tobacco/Smoking Status: Tobacco use Status Tobacco use date assessed 04/15/23 04/15/23 12:17 Patient Tobacco Use Status Never used Tobacco 04/15/23 12:15 e-Cigarette/Vaping Use Never Used 04/15/23 12:15 Thrive Assessment: Date of Thrive Assessment Date Thrive assessed 05/20/22 04/15/23 12:15 Const General: well developed; No acute distress Nutritional Appearance: well nourished Orientation/consciousness: patient oriented x3 [facility] Head: Yes normocephalic and Yes atraumatic Eyes General: appearance normal, both eyes and all related structures Pupils: Equal, round and reactive pupils present EOM: EOMs intact bilaterally Resp Effort & Inspection: normal respiratory effort Auscultation: clear to auscultation bilaterally Cardio Rate: regular rate Rhythm: regular rhythm Heart sounds: S1 normal heart sound present, S2 normal heart sound present, no gallops, no murmurs and no rubs Neuro General: patient oriented x3 and gait normal Cranial nerves: Yes Equal, round and reactive pupils present Psych Affect: normal affect Assessment and Plan Assessment & Plan (1) Altered mental status: Code(s): R41.82 - Altered mental status, unspecified Plan: Patient?with?history?of?TBI?and?seizure?disorder?went?to?the?emergency?departmen t?on?04/03/2023?for?altered?mental?st ate.??He?was?not?interacting?at?his?baseline. He?had?had?prior?urosepsis?at?last?hospital?visit. Urine?studies?did?not?demonstrate?a?UTI?and?chest?x-ray?was?negative?for?pneumon ia.??Brain?imaging?did?not?show?any?new?strokes. Patient?was?monitored?and?mental?status?returned?to?baseline.??Seizures?were?not ?ruled?out Will?check?Keppra?and?oxcarbazepine If?patient?has?additional?labs?as?in?mental?st atus,?would?refer?him?back?to?Neurology?for?evaluation?for?seizures. (2) Incontinence of urine: Code(s): R32 - Unspecified urinary incontinence Plan: Incontinent?of?urine?and?feces?in?patient?with?traumatic?brain?injury?and?seizur e?disorder. Also?wheelchair-bound Requires?adult?briefs,?under?pads?and?gloves?for?hygiene (3) Incontinence of feces: Code(s): R15.9 - Full incontinence of feces Plan: As?above (4) TBI (traumatic brain injury): Code(s): S06.9X9A - Unspecified intracranial injury with loss of consciousness of u nspecified duration, initial encounter Plan: TBI?with?permanent?disability?and?wheelchair-bound. (5) Wheelchair dependent: Code(s): Z99.3 - Dependence on wheelchair Plan: As?above Orders: Orders Levetiracetam Keppra Today R56.9 - Unspecified convulsions UA and rflx microscopic Today R41.82 - Altered mental status, unspecified, Z00.00 - Encounter for general adult medical examination without abnormal findings Oxcarbazepine Today R56.9 - Unspecified convulsions Comprehensive Met. Panel Today R41.82 - Altered mental status, unspecified Medications: Refilled miscellaneous medical supply Extra large briefs 1 month 140 ea 6RF R41.82 - Altered mental status, unspecified miscellaneous medical supply Reusable under pads 1 month 2 ea 6RF R41.82 - Altered mental status, unspecified disposable gloves (Disposable Latex-Free Gloves) As directed size medium /large 1,000 ea 6RF R56.9 - Unspecified convulsions Coding Level of Care Code Est Pt Level 4 (08275) Diagnoses Altered mental status R41.82 Incontinence of urine R32 Incontinence of feces R15.9 TBI (traumatic brain injury) S06.9X9A Wheelchair dependent Z99.3
[2023-04-15 12:17] VITALS: BP 118/64; PULSE 70; O2SAT 99
== END 2023-04-15 12:52 | disposition home or self-care (01) ==
PROVIDERS: PCP Family Medicine; Visit Provider Family Medicine
DX: R41.82 Altered mental status, unspecified (principal); R32 Unspecified urinary incontinence; R15.9 Full incontinence of feces; S06.9X9A Unspecified intracranial injury with loss of consciousness of unspecified duration, initial encounter; Z99.3 Dependence on wheelchair
CPT/HCPCS: 99214

== ENCOUNTER 2023-04-15 12:39 | Outpatient (REF) | payer MEDICARE, MEDICAID, SELFPAY ==
[2023-04-15 14:58] LABS: Alanine Aminotransferase 22 U/L (0-40); Albumin Level 3.7 g/dL (3.5-5.0); Alkaline Phosphatase 143 U/L (39-117); Anion Gap 10 (12-20); Aspartate Amino Transferase 16 U/L (5-37); Bilirubin Total 0.2 mg/dL (0.0-1.0); Blood Urea Nitrogen 11 mg/dL (9-16); Calcium 9.1 mg/dL (8.4-10.2); Carbon Dioxide 27 mmol/L (22-29); Chloride 107 mmol/L (96-108); Estimated Glomerular Filt Rate > 60; Glucose Random 100 mg/dL (60-115); Potassium 3.8 mmol/L (3.3-5.1); Sodium 140 mmol/L (135-145); Total Protein 6.8 g/dL (6.5-8.0)
[2023-04-18 19:02] LABS: Levetiracetam Keppra 49.1 mcg/mL (6.0-46.0)
[2023-04-19 02:29] LABS: Oxcarbazepine 24.6 mcg/mL (8.0-35.0)
== END 2023-04-15 12:40 | disposition home or self-care (01) ==
LOC: HO.WFDLDS 12:39
PROVIDERS: Visit Provider Family Medicine
DX: Z00.00 Encounter for general adult medical examination without abnormal findings (principal); R56.9 Unspecified convulsions; R41.82 Altered mental status, unspecified
CPT/HCPCS: 36415; 80053; 80177; 80339

== ENCOUNTER 2023-04-16 08:37 | Outpatient (AMB) | payer MEDICARE, MEDICAID, SELFPAY ==
--- NOTE | 2023-04-16 08:42 | MHC.OFFVIS ---
Intake Intake Visit Reasons: follow up/labs/US(set) Intake Note: Patient presents for follow up visit recurrent uti Urology Medications: none Blood Thinner: none PVR: 159ml's Mechanical Commissioning Engineer Required: No Accompanied by: HAT BRIM AND CROWN LAMINATING OPERATOR Allergies No Known Allergies Allergy (Unknown, Verified 04/16/23 10:03) none Medication List - Last Reconciled 04/16/23 by DAVID Antonio acetaminophen 650 mg (2 x 325 mg) PO Q6H PRN 30 days ascorbic acid (vitamin C) 1 g PO DAILY 90 days bisacodyl 10 mg [place] DAILY 90 days cholecalciferol (vitamin D3) 50 mcg PO QAM diazepam (Valtoco) mg intranasal diazepam (Valtoco) mg intranasal disposable gloves (Disposable Latex-Free Gloves) As directed size medium /large docusate sodium (Stool Softener) 200 mg (2 x 100 mg) PO BID ferrous gluconate 324 mg PO DAILY 30 days gabapentin 200 mg (2 x 100 mg) PO BEDTIME 30 days guaifenesin ER (Mucinex) 600 mg PO Q12H PRN lacosamide 150 mg PO 1 tab in am, 0.5 tabs at noon, 2 tabs in the pm; lactulose (Enulose) 30 mL PO TID 30 days lamotrigine 200 mg PO TID lamotrigine 100 mg PO BEDTIME levetiracetam (Keppra) 1,500 mg PO BID magnesium oxide 400 mg PO DAILY methenamine hippurate 1 g PO DAILY 90 days miscellaneous medical supply Extra large briefs 1 month miscellaneous medical supply Complete catheter kit 1 month miscellaneous medical supply Reusable under pads 1 month omeprazole 20 mg PO DAILY oxcarbazepine (Trileptal) 600 mg PO .afternoon oxcarbazepine (Trileptal) 300 mg PO .evening oxcarbazepine (Trileptal) 900 mg PO BEDTIME risperidone 2 mg PO BID PRN sennosides (senna) 17.2 mg (2 x 8.6 mg) PO BID 30 days simethicone (Gas Relief 80 (simethicone)) 80 mg PO TID 90 days sodium phosphates 19-7 gram/118 mL (Enema Disposable) 118 mL [place] DAILY PRN 30 days starch (thickening) (Thick-It oral powder) 1 ea PO TIDWMEAL tamsulosin 0.4 mg PO BEDTIME 90 days underpads As directed HPI HPI Comments History of Present Illness Details Andrei is a pleasant 62 year old male patient of Dr. Oliva who is accompnaied by his HAT BRIM AND CROWN LAMINATING OPERATOR worker from his skilled nursing. He has a PMH of a TBI, constipation, and seizures. He presents to the office today for a follow up. Of note, patient was seen approximately 3 months ago as a new patient for recurrent urinary tract infections at which time a retroperitoneal ultrasound was ordered for further assess evaluation as well as PSA. These results were reviewed with the patient, HAT BRIM AND CROWN LAMINATING OPERATOR worker and call to patient's healthcare proxy Shekhar and discussed plan of care. Right kidney with no calculi and or hydronephrosis. Left kidney with no lesions and or hydronephrosis noted. The bladder is partially distended, limiting evaluation as patient is incontinent of urine. Prostate volume is approximately 37 mL. PSA 02/22-- 24.7. Much of today's history is provided by HAT BRIM AND CROWN LAMINATING OPERATOR worker from skilled nursing as patient slow to respond and answers questions inappropriately at times. HAT BRIM AND CROWN LAMINATING OPERATOR worker reports patient has had recurrent urinary tract infections over the last few months and was recently admitted to [facility] and found to have an acute kidney injury. She discusses patient is typically incontinent of urine. Patient was unable to provide urine for urine sample however PVR 159 mL. Patient was straight cathed for 80 mL of cloudy yellow urine. Urine sample sent for microgen. Discussed at length with HAT BRIM AND CROWN LAMINATING OPERATOR, patient, and healthcare proxy Shekhar potential causes for incomplete bladder emptying as well as elevated PSA. Discussed further assessment evaluation of elevated PSA once treated for urinary tract infection. Discussed potential for near future suprapubic tube in the setting of incomplete bladder emptying with potential neurogenic bladder. Discussed potential near future in office cystoscopy if symptoms persist and/or worsen. She otherwise denies patient to have experienced any fever, chills, and or hematuria. [facility] Medical History Constipation Seizures TBI (traumatic brain injury) Surgical History History of craniotomy Family History Father Dementia Chronic mental illness Mother Hypertension Social History Housing: Other Housing Other:: Assisted Patient Tobacco Use Status: Never used Tobacco e-Cigarette/Vaping Use: Never Used Second Hand Smoke Exposure: No service: No Current occupational status: disabled Current occupational exposures/hazards: No Cognitive needs: Yes Hearing needs: Yes Vision needs: No Review of Systems Const Reports as per HPI Eyes Reports no additional complaints ENT Reports no additional complaints Card Reports no additional complaints Physical Exam Const General: cooperative, comfortable, no acute distress, well developed, alert and awake Orientation/consciousness: oriented to person Limitations: wheelchair Resp Effort & Inspection: normal respiratory effort Neuro General: oriented to person Extrem General: Yes normal to inspection Psych Appearance: well kempt Mental Status: other (patient with PMH of TBI slow to respond and poor historian) Attitude: cooperative Insight: Limited insight present (Psych) Judgement: Limited judgement present (Psych) Office Procedures Post Void Residual Post Residual Void Post Void Residual (PVR): 159 [id number] Void Residual by ultrasound Results Reviewed Results Reviewed: Date of Service: 04/09/23 EXAMINATION: US RETROPERITONEAL COMPLETE (RENAL) FINDINGS: RIGHT KIDNEY: 11.0 x 4.6 x 4.8 cm (SAG x AP x TRV). No hydronephrosis. No renal calculi. Limited visualization. LEFT KIDNEY: 10.6 x 6.3 x 6.0 cm (SAG x AP x TRV). The kidney is normal in size, contour, and echogenicity. Renal cortical thickness is normal. No calculi or focal parenchymal lesions. No hydronephrosis. BLADDER: Bladder partially distended, limiting evaluation, as patient incontinent of urine. Prevoid bladder volume is 123 mL. Per cognos bi developer statement, the patient is disabled and unable to void on command, and therefore postvoid images were not obtained. ADDITIONAL FINDINGS: Prostate volume is 36.4 mL. IMPRESSION: 1. No hydronephrosis. No renal calculi. Limited visualization. 2. Limited evaluation of bladder as detailed above. 3. Prostate volume is 36.4 mL. Assessment & Plan Assessment & Plan (1) Recurrent UTI: Code(s): N39.0 - Urinary tract infection, site not specified (2) Incomplete bladder emptying: Code(s): R33.9 - Retention of urine, unspecified (3) Elevated PSA: Code(s): R97.20 - Elevated prostate specific antigen [PSA] (4) Incontinence: Code(s): R32 - Unspecified urinary incontinence Plan Call to patient's healthcare proxy (Shekhar Bajwa--[phone]) to discuss results as well as plan of care; this was discussed at length PVR-159ml's Stop Flomax Start terazosin 5 mg at bedtime. Patient straight cath for microgen testing for further assessment evaluation. Recent retroperitoneal ultrasound results reviewed with the patient and HAT BRIM AND CROWN LAMINATING OPERATOR worker; as noted above. Discussed possible near future suprapubic tube Discussed possible near future in office cystoscopy for further assessment evaluation Discussed potential causes for recurrent UTIs Will reassess PSA in 6 weeks; discussed at length potential causes for elevated PSA; discussed treatment for UTI and will reassess PSA status post treatment of urinary tract infection Continue methenamine and Vitamin C Follow-up in 6-8 weeks with PVR; or sooner with any issues, concerns, and or questions. Orders: Orders AMB Post Void Residual by ultrasound 04/16/23 N40.0 - Benign prostatic hyperplasia without lower urinary tract symptoms AMB Urinalysis Automated 04/16/23 Z13.9 - Encounter for screening, unspecified Patient Instructions: The patient had an opportunity to ask questions regarding the treatment plan. All questions were answered. Physical exam, labs, and imaging were discussed and reviewed in detail. As well as risks, benefits, and discussion of treatment choices. No major barriers to understanding were identified. The patient expressed understanding and agreement with the above treatment plan. The patient was made aware they should contact our office by phone for worsening of their current condition, the appearance of new symptoms, or with any questions or concerns. Compliance is encouraged with any medications and follow up testing that is ordered. It is a privilege to be allowed the opportunity to participate in? your urological care.? Again, if you have any questions or concerns If you have any questions or concerns please do not hesitate to contact me. The office is [phone]. This note is constructed using voice recognition software. While every effort has been made to ensure accuracy optical instrument assembly supervisor errors may have been included. Yours sincerely, DAVID Antonio Coding Level of Care Code Est Pt Level 4 (64729) Diagnoses Recurrent UTI N39.0 Incomplete bladder emptying R33.9 Elevated PSA R97.20 Incontinence R32 CPT Codes Post Residual Void - PVR CPT Code: 48522-[id number] Void Residual by ultrasound ([id number]) Time Spent (min) 50
== END 2023-04-16 09:39 | disposition home or self-care (01) ==
PROVIDERS: PCP Family Medicine; Visit Provider Nurse Practitioner Family
DX: N39.0 Urinary tract infection, site not specified (principal); R33.9 Retention of urine, unspecified; R97.20 Elevated prostate specific antigen [PSA]; R32 Unspecified urinary incontinence
CPT/HCPCS: 99214

== ENCOUNTER → 2023-04-16 08:37 | Outpatient (BNVA) | payer MEDICARE, MEDICAID, SELFPAY | PROVIDERS: PCP Family Medicine; Visit Provider Nurse Practitioner Family | DX: N39.0 Urinary tract infection, site not specified (principal); R33.9 Retention of urine, unspecified; R97.20 Elevated prostate specific antigen [PSA]; R32 Unspecified urinary incontinence | CPT/HCPCS: 51798; 99212 ==

== ENCOUNTER 2023-05-26 08:39 | Outpatient (AMB) | payer MEDICARE, MEDICAID, SELFPAY ==
[2023-05-26 08:43] VITALS: BP 116/70; PULSE 84; O2SAT 98
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
== END 2023-05-26 09:15 | disposition home or self-care (01) ==
PROVIDERS: PCP Family Medicine; Visit Provider Family Medicine
DX: N39.0 Urinary tract infection, site not specified (principal); R56.9 Unspecified convulsions
CPT/HCPCS: 99213

== ENCOUNTER 2023-06-01 11:54 | Outpatient (AMB) | payer MEDICARE, MEDICAID, SELFPAY ==
--- NOTE | 2023-06-01 11:59 | MHC.OFFVIS ---
Intake Vital Signs 06/01/23 12:01 BMI Reason not done Patient refused/unable Blood Pressure Location Lt brachial Position Sitting Intake Visit Reasons: 3 month follow up Intake Note: Andrei presents in the office as a 3 month follow up. CC: No concerns today just a follow up. Allergies No Known Allergies Allergy (Unknown, Verified 06/01/23 12:01) none HPI HPI Comments History of Present Illness Details 62 y.o M with PMH of TBI s/p LIGHT COIL WINDER shunt, minimally verbal, wheelchair bound, seizure disorder, remote hx of SBO s/p VIKTORIYA 2011, who presents from nursing home for another opinion on severe constipation. 03/02/23: Pt previously established with [facility] (Robina SERRANO) and referral for [facility] was initiated earlier this year when the pt was moving his bowel once every 2-3 days however since then he has also been seen by colorectal surgery (Dr Mares) and has had following medications added: Miralax 17g BID Reglan 10 QID Milk of mag 30 ml BID Previously was already on Linzess 290 Senna 17.2 BID Bisacodyl supp 10mg daily With the addition of medications through [facility] in October pt now has regular bowel habits. Child Care Aide reports at least once BM a day which is soft. No blood in BM. No grunting/straining or discomfort while passing a BM. Has pureed diet and nursing home includes fiber sources such as oatmeal, green smoothies. As outlined above pt has limited mobility and has PT but mostly for upper body strength. 06/01/23: Here with a central sterilization technician from nursing home. Collateral history was also obtained from her nurse at nursing home [facility]. Reports that most of the days does not have any issues with moving bowels. However, when patient goes more than 3 days without having a bowel movement, they give him p.r.n. enema and suppository with good effect. Otherwise, patient does not appear to be in any distress, is having good appetite. REPLACED BY [facility] Medical History Constipation Seizures TBI (traumatic brain injury) Surgical History History of craniotomy Family History Father Dementia Chronic mental illness Mother Hypertension Social History Housing: Other Housing Other:: Half-Way Patient Tobacco Use Status: Never used Tobacco e-Cigarette/Vaping Use: Never Used Second Hand Smoke Exposure: No service: No Current occupational status: disabled Current occupational exposures/hazards: No Cognitive needs: Yes Hearing needs: Yes Vision needs: No Review of Systems Const Unobtainable due to mental condition Physical Exam Gen appear: NAD HEENT: nonicteric, no cervical lymphadenopathy Chest: CTA CVS: Regular S1/S2 Abd: soft, nondistended Neuro: Awake, answers in yes/no Assessment & Plan Assessment & Plan (1) Constipation: Code(s): K59.00 - Constipation, unspecified (2) TBI (traumatic brain injury): Code(s): S06.9X9A - Unspecified intracranial injury with loss of consciousness of unspecified duration, initial encounter Plan Reviewed with the central sterilization technician that unfortunately constipation fairly common in pts with limited mobility due to hypomotility, lack of urge to defecate and sometimes lack of coordination for proper evacuation. Diet also plays a role but seems that nursing home making extra effort to include fiber sources in pureed diet. Plan: - Currently appears to be doing well on current bowel regimen and would not make any changes. - continue lower extremity PT - Abd massage 3-4 times a day from RLQ to RUQ to LUQ to LLQ. - meds refilled - Follow up in 6 months Medications: New polyethylene glycol 3350 (Miralax) 17 grams PO BID 510 grams 2RF linaclotide (Linzess) 290 mcg PO DAILY 90 caps 1RF magnesium hydroxide (Milk Of Magnesia Concentrated) 30 mL PO BEDTIME PRN 1,000 mL 0RF constipation Refilled bisacodyl 10 mg ID DAILY 90 days 100 ea 3RF constipation Coding Level of Care Code Est Pt Level 3 (29907) Diagnoses Constipation K59.00 TBI (traumatic brain injury) S06.9X9A
== END 2023-06-01 12:32 | disposition home or self-care (01) ==
PROVIDERS: PCP Family Medicine; Visit Provider Internal Medicine
DX: K59.00 Constipation, unspecified (principal); S06.9X9A Unspecified intracranial injury with loss of consciousness of unspecified duration, initial encounter
CPT/HCPCS: 99213

== ENCOUNTER → 2023-06-01 11:54 | Outpatient (BNVA) | payer MEDICARE, MEDICAID, SELFPAY | PROVIDERS: PCP Family Medicine; Visit Provider Internal Medicine | DX: K59.00 Constipation, unspecified (principal); S06.9X9A Unspecified intracranial injury with loss of consciousness of unspecified duration, initial encounter | CPT/HCPCS: 99212 ==

== ENCOUNTER 2023-07-30 08:39 | Outpatient (AMB) | payer MEDICARE, MEDICAID, SELFPAY ==
--- NOTE | 2023-07-30 08:44 | A.OFFPC_ITS ---
Vital Signs 07/30/23 08:49 BP 118/82 Blood Pressure Location Lt brachial Position Sitting Respiration 14 Pulse 74 Pulse Source Pulse Oximeter Temp 98.2 F Temp Source Oral Pulse Oximetry (%) 97 Oxygen Delivery Method Room Air Intake Visit Reasons: Extended exam follow-up labs health maintenance Intake Note: Follow up Allergies No Known Allergies Allergy (Unknown, Verified 07/30/23 08:43) none Medication List - Last Reconciled 07/30/23 by René Oliva MD acetaminophen 650 mg (2 x 325 mg) PO Q6H PRN 30 days ascorbic acid (vitamin C) 1 g PO Q6H bisacodyl 10 mg IN DAILY 90 days cholecalciferol (vitamin D3) 50 mcg PO QAM disposable gloves (Disposable Latex-Free Gloves) As directed size medium /large docusate sodium (Stool Softener) 200 mg (2 x 100 mg) PO BID ferrous gluconate 324 mg PO DAILY 30 days guaifenesin ER (Mucinex) 600 mg PO Q12H PRN lacosamide 150 mg PO 1 tab in am, 0.5 tabs at noon, 2 tabs in the pm; lactulose (Enulose) 30 mL PO TID 30 days lamotrigine 200 mg PO TID lamotrigine 100 mg PO BEDTIME levetiracetam (Keppra) 1,500 mg PO BID linaclotide (Linzess) 290 mcg PO DAILY magnesium hydroxide (Milk Of Magnesia Concentrated) 30 mL PO BEDTIME PRN magnesium oxide 400 mg PO DAILY methenamine hippurate 1 g PO DAILY 90 days metoclopramide HCl (Reglan) 10 mg PO Q6H PRN miscellaneous medical supply Extra large briefs 1 month miscellaneous medical supply Complete catheter kit 1 month miscellaneous medical supply Reusable under pads 1 month oxcarbazepine (Trileptal) 600 mg PO .afternoon oxcarbazepine (Trileptal) 300 mg PO .evening oxcarbazepine (Trileptal) 900 mg PO BEDTIME polyethylene glycol 3350 (Miralax) 17 grams PO BID risperidone (Risperdal) 2 mg PO BID risperidone 2 mg PO BID PRN simethicone (Gas Relief 80 (simethicone)) 80 mg PO TID 90 days starch (thickening) (Thick-It oral powder) 1 ea PO TIDWMEAL underpads As directed Tobacco use date assessed: 04/15/23 Dental Screening Dental Screen Date: 07/30/23 HPI Extended exam follow-up labs health maintenance HPI Details 62 y/o male presents for an extended exa m with f/u labs and health maintenance. No recent labs to review. PFSH Medical History Constipation Seizures TBI (traumatic brain injury) Surgical History History of craniotomy Family History Father Dementia Chronic mental illness Mother Hypertension Social History Housing: Other Housing Other:: Long-Term Patient Tobacco Use Status: Never used Tobacco e-Cigarette/Vaping Use: Never Used Second Hand Smoke Exposure: No service: No Current occupational status: disabled Current occupational exposures/hazards: No Cognitive needs: Yes Hearing needs: Yes Vision needs: No Questionnaire PHQ-9 Over the last 2 weeks, how often have you been bothered by any of the following problems? 1. Little interest or pleasure in doing things: not at all 2. Feeling down, depressed, or hopeless: not at all 3. Trouble falling or staying asleep, or sleeping too much: not at all 4. Feeling tired or having little energy: not at all 5. Poor appetite or overeating: not at all 6. Feeling bad about yourself - or that you are a failure or have let yourself or your family down: not at all 7. Trouble concentrating on things, such as reading the newspaper or watching television: not at all 8. Moving or speaking so slowly that other people could have noticed. Or the opposite - being so fidgety or restless that you have been moving around a lot more than usual: not at all 9. Thoughts that you would be better off or of hurting yourself in some way: not at all Total score: 0 Depression Screening Interpretation: Negative Depression Screening Done: Yes 47966 - PHQ-9 Billing: Yes Source: Developed by Drs. Jose L. Stephanie Aldana Kurt Kroenke and colleagues, with an educational jose from [employer]. Thrive Questionnaire Date Thrive assessed: 07/30/23 I am a: Parent/Caregiver What is your living situation today?: I have a steady place to live Within the past 12 months, did the food you bought not last and you didn't have the money to get more?: Never true Within the past 12 months, did you worry whether your food would run out before you got money to buy more?: Never true Do you have trouble paying for medicines?: No Do you have trouble getting transportation to medical appointments?: No Do you have trouble paying your heating and electricity bill?: No Do you have trouble taking care of your child, family member or friend?: No Do you have trouble with day-to-day activities such as bathing, preparing meals, shopping, managing finances, etc.?: No Are you currently unemployed and looking for a job?: No Are you interested in more education?: No Please select the resources that you would like help with: None THRIVE Score: 0 AUDIT C Alcohol Use Questionnaire (AUDIT-C) 1. How often do you have a drink containing alcohol?: Never 2. How many drinks containing alcohol do you have on a typical day when you are drinking?: 1 or 2 3. How often do you have six or more drinks on one occasion?: Never Total Score: 0 KRYSTIAN-7 AMB Questionnaire KRYSTIAN-7 Date KRYSTIAN - 7 assessed: 07/30/23 Feeling nervous, anxious, or on edge: 0 = Not at all Not being able to stop or control worryin = Not at all Worrying too much about different things: 0 = Not at all Trouble relaxin = Not at all Being so restless that it is hard to sit still: 0 = Not at all Becoming easily annoyed or irritable: 0 = Not at all Feeling afraid as if something awful might happen: 0 = Not at all Total KRYSTIAN-7 score (0-4 normal; 5-9 mild; 10-14 moderate; 15-21 severe): 0 Source: Developed by Stephanie Laurent Kurt Kroenke and colleagues, with an educational jose from [employer]. KRYSTIAN-7 Assessment Billing KRYSTIAN-7 Assessment Tool: KRYSTIAN-7 Assessment 47252 Review of Systems Const Denies chills, Denies fatigue, Denies fever(s), Denies headache(s) and Denies weakness Eyes Denies change in vision ENT Denies dizziness, Denies headache(s), Denies hearing loss, Denies nasal congestion, Denies sinus pain, Denies sinus pressure and Denies sore throat Card Denies chest pain, Denies lightheadedness, Denies dyspnea and Denies other (p alpitations) Resp Denies cough, Denies dyspnea and Denies wheezing GI Denies abdominal pain, Denies melena, Denies hematochezia, Denies change in chintan l habits, Denies dyspepsia and Denies nausea Denies hematuria and Denies dysuria Musc Denies abnormal gait, Denies myalgias, Denies arthralgias, Denies numbness and Denies tingling Skin/Breast Denies rash, Denies unusual bruising and Denies wounds Neuro Denies abnormal gait, Denies dizziness, Denies headache(s), Denies memory loss, Denies numbness, Denies Sensory deficit (Neuro), Denies tingling and Denies weakness Psych Denies anxiety, Denies depression and Denies memory loss Endo Denies cold intolerance, Denies fatigue, Denies heat intolerance, Denies polydipsia and Denies polyuria Riaz/Lymph Denies easy bleeding and Denies easy bruising Aller/Immun Denies wheezing Physical exam (Primary Care) Vital Signs: Last Vital Signs Temp 98.2 F 07/30/23 08:49 Pulse 74 07/30/23 08:49 Resp 14 07/30/23 08:49 BP 118/82 07/30/23 08:49 Pulse Ox 97 07/30/23 08:49 Oxygen Delivery Method Room Air 07/30/23 08:49 Tobacco/Smoking Status: Tobacco use Status Tobacco use date assessed 04/15/23 07/30/23 08:48 Patient Tobacco Use Status Never used Tobacco 07/30/23 08:48 e-Cigarette/Vaping Use Never Used 07/30/23 08:48 Depression Screening Interpretation: Negative Thrive Assessment: Date of Thrive Assessment Date Thrive assessed 05/20/22 07/30/23 08:48 Const General: no acute distress, well developed, alert and awake Nutritional Appearance: well nourished Orientation/consciousness: patient oriented x3 [facility] Head: Yes normocephalic and Yes atraumatic Ears: hearing grossly normal bilaterally and TM's normal bilaterally General nose exam: Normal external nose present and Normal nares present Mouth: Normal oral and palatal mucosa present and moist mucous membranes Teeth and gingiva: dentition normal Throat: Yes posterior oropharynx normal Eyes General: appearance normal, both eyes and all related structures Pupils: Equal, round and reactive pupils present and Pupil accommodation reflex normal EOM: EOMs intact bilaterally Neck Neck: Yes normal visual inspection, Yes no lymphadenopathy and Yes trachea midline Thyroid: Thyroid normal Carotids: no bruits Lymphatic: no lymphadenopathy noted Chest Chest palpation & inspection: normal inspection of the chest Resp Other: Upper airway secretions Effort & Inspection: normal respiratory effort Auscultation: clear to auscultation bilaterally Cardio Rate: regular rate Rhythm: regular rhythm Heart sounds: S1 normal heart sound present, S2 normal heart sound present, no gallops, no murmurs and no rubs Bruits: no abdominal aortic bruits and no carotid bruits GI Palpation (GI): No Abdominal aortic bruit present, Soft to palpation, nontender, No hepatosplenomegaly present and No Rebound tenderness present Auscultation: normal bowel sounds General: Yes no CVA tenderness Back/Spine/Pelvis Back: no CVA tenderness Cervical Spine: cervical ROM normal and No Cervical spine tenderness Thoracic/Lumbar Spine: thoraco-lumbar ROM normal, No pain with thoraco-lumbar ROM, No thoracic spinal tenderness and No lumbar spinal tenderness Skin Lesions: no lesions Rashes: no rashes Trauma: no lacerations or abrasions Wounds: no wounds Nails: normal Neuro Other: Spastic paralysis of his R upper extremity Weakness of his RLE 1/5 strength LLE weakness 3/5 wheelchair bound L arm 5/5 General: patient oriented x3 Cranial nerves: Yes Equal, round and reactive pupils present Cognition (Neuro): normal cognition Gait exam (Neuro): gait abnormal Motor exam (neuro): strength not 5/5 throughout Sensory Exam: No Sensory deficit (Neuro) Deep tendon reflexes (DTR's): Right patellar reflex intensity grade: 2+ and Left patellar reflex intensity grade: 2+ Extrem General: Yes normal to inspection and No edema Psych Appearance: grossly normal Affect: normal affect Attitude: cooperative Thought process: Normal thought process present Assessment and Plan Assessment & Plan (1) Adult general medical exam: Code(s): Z00.00 - Encounter for general adult medical examination without abnormal findings Plan: 62-year-old?ma le?with?history?of?TBI?and?now?right?hemiparesis?presents?for?an?extended?exam Stable (2) Screening for colon cancer: Code(s): Z12.11 - Encounter for screening for malignant neoplasm of colon Plan: Followed?by??Aníbal Follow-up?with?Gastroenterology?as?recommended (3) Screening for prostate cancer: Code(s): Z12.5 - Encounter for screening for malignant neoplasm of prostate Plan: Lab?work?is?ordered Will?check?PSA (4) Constipation: Code(s): K59.00 - Constipation, unspecified Plan: Fairly?well?controlled Continue?good?hydration?and?bowel?regimen (5) Incontinence: Code(s): R32 - Unspecified urinary incontinence Plan: Stable Continue?briefs?and?pads (6) TBI (traumatic brain injury): Code(s): S06.9X9A - Unspecified intracranial injury with loss of consciousness of unspecified duration, initial encounter Plan: History?of?TBI?and?right?hemiplegia Neuro?exam?is?at?baseline Patient?is?in?wheelchair No?wounds?abrasions?or?ulcerations?of?skin Orders: Orders Comprehensive Met. Panel Today Z00.00 - Encounter for general adult medical examination without abnormal findings Complete Blood Count Auto Diff Today Z00.00 - Encounter for general adult medical examination without abnormal findings Prostate Specific Antigen Scr Today Z00.00 - Encounter for general adult medical examination without abnormal findings, Z12.5 - Encounter for screening for malignant neoplasm of prostate Lipid Panel Today Z00.00 - Encounter for general adult medical examination w ithout abnormal findings TSH reflex Free T4 Today Z00.00 - Encounter for general adult medical examination without abnormal findings UA and rflx microscopic Today Z00.00 - Encounter for general adult medical examination without abnormal findings Vitamin D 25-OH Total Today E55.9 - Vitamin D deficiency, unspecified, Z00.00 - Encounter for general adult medical examination without abnormal findings LDL Cholesterol Direct Today Z00.00 - Encounter for general adult medical examination without abnormal findings Coding Level of Care Code Est Pt Level 4 (73602) Diagnoses Adult general medical exam Z00.00 Screening for colon cancer Z12.11 Screening for prostate cancer Z12.5 Constipation K59.00 Incontinence R32 TBI (traumatic brain injury) S06.9X9A Additional Codes KRYSTIAN-7 Assessment Billing - KRYSTIAN-7 Assessment Tool: KRYSTIAN-7 Assessment 46747 ([id number])
[2023-07-30 08:49] VITALS: BP 118/82; PULSE 74; RESP 14; TEMP 36.8; O2SAT 97
== END 2023-07-30 09:46 | disposition home or self-care (01) ==
PROVIDERS: PCP Family Medicine; Visit Provider Family Medicine
DX: Z00.00 Encounter for general adult medical examination without abnormal findings (principal); S06.9X9A Unspecified intracranial injury with loss of consciousness of unspecified duration, initial encounter; Z12.11 Encounter for screening for malignant neoplasm of colon; Z12.5 Encounter for screening for malignant neoplasm of prostate; K59.00 Constipation, unspecified; R32 Unspecified urinary incontinence
CPT/HCPCS: 99396

== ENCOUNTER 2023-07-30 09:34 | Outpatient (REF) | payer MEDICARE, MEDICAID, SELFPAY ==
[2023-07-30 11:42] LABS: MANUAL DIFF FLAG NO
[2023-07-30 11:47] LABS: Basophils Percent Auto 0.3 % (0-2); Eosinophils Percent Auto 0.3 % (0-4); Hematocrit 33.6 % (42.0-52.0); Hemoglobin 11.2 g/dl (14.0-18.0); Imm Gran Abs Auto 0.01 X10*3/uL (0.00-0.03); Imm Gran Pct Auto 0.3 % (0.0-0.4); Lymphocytes Absolute Auto 0.9 X10*3/uL (1.2-4.9); Mean Corpuscular HGB Conc 33.3 g/dl (31.0-36.0); Mean Corpuscular Hemoglobin 29.6 pg (27.0-33.0); Mean Corpuscular Volume 88.7 fL (80.0-98.0); Mean Platelet Volume 10.1 fL (9.4-12.4); Monocytes Absolute Auto 0.3 X10*3/uL (0.1-1.2); Neutrophils Absolute Auto 2.5 x10*3/uL (2.0-8.3); Neutrophils Percent Auto 66.1 % (45-73); Platelet Count 202 X10*3/uL (160-400); Red Blood Count 3.79 X10*6/uL (4.60-5.80); Red Cell Distribution Width 13.2 % (11.0-16.0); White Blood Count 3.8 X10*3/uL (4.8-10.8)
[2023-07-30 12:00] LABS: Alanine Aminotransferase 17 U/L (0-40); Albumin Level 3.8 g/dL (3.5-5.0); Alkaline Phosphatase 101 U/L (39-117); Anion Gap 11 (12-20); Aspartate Amino Transferase 14 U/L (5-37); Bilirubin Total 0.3 mg/dL (0.0-1.0); Blood Urea Nitrogen 8 mg/dL (9-16); Calcium 8.9 mg/dL (8.4-10.2); Carbon Dioxide 26 mmol/L (22-29); Chloride 100 mmol/L (96-108); Cholesterol 228 mg/dL (<200); Estimated Glomerular Filt Rate > 60; Glucose Random 104 mg/dL (60-115); HDL Cholesterol 70 mg/dL (>40); LDL Cholesterol Calculated 148 mg/dL (<100); Potassium 3.6 mmol/L (3.3-5.1); Sodium 133 mmol/L (135-145); Total Protein 6.4 g/dL (6.5-8.0); Triglycerides 53 mg/dL (<150)
[2023-07-30 12:14] LABS: TSH reflex Free T4 0.61 uIU/mL (0.32-4.0); Vitamin D 25-OH Total 49.5 ng/mL (>30)
[2023-07-30 14:54] LABS: PSA,Total (Free>4and<10) 0.62 ng/mL (0.00-4.00)
[2023-07-31 06:47] LABS: LDL Cholesterol Direct 140 mg/dL (<100)
== END 2023-07-30 09:35 | disposition home or self-care (01) ==
LOC: HO.WFDLDS 09:34
PROVIDERS: Referring Provider Nurse Practitioner Family; Visit Provider Family Medicine
DX: Z00.00 Encounter for general adult medical examination without abnormal findings (principal); Z12.5 Encounter for screening for malignant neoplasm of prostate; Z13.6 Encounter for screening for cardiovascular disorders; R97.20 Elevated prostate specific antigen [PSA]; E55.9 Vitamin D deficiency, unspecified
CPT/HCPCS: 36415; 80053; 80061; 82306; 83721; 84153; 84443; 85025

== ENCOUNTER 2023-08-09 08:59 | Outpatient (AMB) | payer MEDICARE, MEDICAID, SELFPAY ==
--- NOTE | 2023-08-09 09:14 | MHC.OFFVIS ---
Intake Intake Visit Reasons: Follow up PSA lab Intake Note: Patient presents for follow up visit elevated psa and psa lab results PSA: 0.61 Urology Medications: none Blood Thinner: none PVR: 44ml's Triple Valve Tester Required: No Accompanied by: INSURANCE SALES REPRESENTATIVE Allergies No Known Allergies Allergy (Unknown, Verified 08/09/23 09:39) none Medication List - Last Reconciled 08/09/23 by DAVID Antonio acetaminophen 650 mg (2 x 325 mg) PO Q6H PRN 30 days ascorbic acid (vitamin C) 1 g PO Q6H bisacodyl [address] DAILY 90 days cholecalciferol (vitamin D3) 50 mcg PO QAM diazepam (Valtoco) mg intranasal disposable gloves (Disposable Latex-Free Gloves) As directed size medium /large docusate sodium (Stool Softener) 200 mg (2 x 100 mg) PO BID ferrous gluconate 324 mg PO DAILY 30 days guaifenesin ER (Mucinex) 600 mg PO Q12H PRN lacosamide 150 mg PO 1 tab in am, 0.5 tabs at noon, 2 tabs in the pm; lactulose (Enulose) 30 mL PO TID 30 days lamotrigine 200 mg PO TID lamotrigine 100 mg PO BEDTIME levetiracetam (Keppra) 1,500 mg PO BID linaclotide (Linzess) 290 mcg PO DAILY magnesium hydroxide (Milk Of Magnesia Concentrated) 30 mL PO BEDTIME PRN magnesium oxide 400 mg PO DAILY methenamine hippurate 1 g PO DAILY 90 days metoclopramide HCl (Reglan) 10 mg PO Q6H PRN miscellaneous medical supply Extra large briefs 1 month miscellaneous medical supply Complete catheter kit 1 month miscellaneous medical supply Reusable under pads 1 month omeprazole 20 mg PO DAILY oxcarbazepine (Trileptal) 600 mg PO .afternoon oxcarbazepine (Trileptal) 300 mg PO .evening oxcarbazepine (Trileptal) 900 mg PO BEDTIME polyethylene glycol 3350 (Miralax) 17 grams PO BID risperidone (Risperdal) 2 mg PO BID risperidone 2 mg PO BID PRN simethicone (Gas Relief 80 (simethicone)) 80 mg PO TID 90 days starch (thickening) (Thick-It oral powder) 1 ea PO TIDWMEAL underpads As directed HPI HPI Comments History of Present Illness Details Andrei is a pleasant 62 year old male patient of Dr. Oliva who is accompnaied by his INSURANCE SALES REPRESENTATIVE worker from his [facility]. He has a PMH of a TBI, constipation, and seizures. He presents to the office today for a follow up. Of note, patient was seen approximately 3 months ago at which time he was treated for a urinary tract infection with Levaquin for positive microgen results. 12 23 micro gin noted Klebsiella pneumoniae 6 8%. Enterococcus faecalia 18%, and Raoultella omithinolytica 11%. He has since completed antibiotic therapy. Recent PSA results reviewed with the patient today and trended below. PSAs are as follows PSA 02/22 24.7, 07/24 0.6 Previous workup has included a retroperitoneal ultrasound noting right kidney with no calculi and or hydronephrosis. Left kidney with no lesions and or hydronephrosis noted. The bladder is partially distended, limiting evaluation as patient is incontinent of urine. Prostate volume is approximately 37 mL. INSURANCE SALES REPRESENTATIVE worker accompanied by patient today offers no issues or concerns regarding the patient. The patient does answer however is extremely slow to respond and responds appropriately to yes or no questions. His baseline urinary status is incontinence of urine and stool. Unable to obtain urine for urinalysis today however PVR 40 mL. Discussed potential near future in office cystoscopy if symptoms arise pre. She otherwise denies patient to have experienced any fever, chills, and or hematuria. Call to patient's healthcare proxy Shekhar however unable to discussed plan of care at this time. Message left. [facility] Medical History Constipation Seizures TBI (traumatic brain injury) Surgical History History of craniotomy Family History Father Dementia Chronic mental illness Mother Hypertension Social History Housing: Other Housing Other:: Alf Patient Tobacco Use Status: Never used Tobacco e-Cigarette/Vaping Use: Never Used Second Hand Smoke Exposure: No service: No Current occupational status: disabled Current occupational exposures/hazards: No Cognitive needs: Yes Hearing needs: Yes Vision needs: No Review of Systems Const Reports as per [facility] Eyes Reports no additional complaints ENT Reports no additional complaints Card Reports no additional complaints Resp Reports no additional complaints GI Reports as per [facility] Reports as per [facility] Musc Reports as per [facility] Neuro Reports as per HPI Psych Reports no additional complaints Endo Reports no additional complaints Riaz/Lymph Reports no additional complaints Aller/Immun Reports no additional complaints Physical Exam Const General: cooperative, comfortable, no acute distress, well developed, alert and awake Orientation/consciousness: oriented to person Limitations: wheelchair Resp Effort & Inspection: normal respiratory effort Neuro General: oriented to person Extrem General: Yes normal to inspection Psych Appearance: well kempt Mental Status: other (patient with PMH of TBI slow to respond and poor historian) Attitude: cooperative Insight: Limited insight present (Psych) Judgement: Limited judgement present (Psych) Office Procedures Post Void Residual Post Residual Void Post Void Residual (PVR): [id number] Void Residual by ultrasound Assessment & Plan Assessment & Plan (1) Recurrent UTI: Code(s): N39.0 - Urinary tract infection, site not specified (2) Incomplete bladder emptying: Code(s): R33.9 - Retention of urine, unspecified (3) Elevated PSA: Code(s): R97.20 - Elevated prostate specific antigen [PSA] (4) Incontinence: Code(s): R32 - Unspecified urinary incontinence Plan Call to patient's healthcare proxy (Shekhar Bajwa--[phone]) to discuss results as well as plan of care; however no answer message left. Unable to obtain urine for urinalysis however; PVR-44ml's Continue methanamine and Vitamin C. Reviewed patients MAR it does not appear terazosin that was recommended at last office visit was initiated PVR remains low at this time will continue to monitor. Recent PSA results reviewed with the patient and INSURANCE SALES REPRESENTATIVE worker today. Discussed possible near future in office cystoscopy for further assessment evaluation if symptoms arise. Discussed potential causes for recurrent UTIs. Continue methenamine and Vitamin C. Follow-up in 6 months with PVR; or sooner with any issues, concerns, and or questions. Orders: Orders AMB Post Void Residual by ultrasound Today R33.9 - Retention of urine, unspecified Patient Instructions: The patient had an opportunity to ask questions regarding the treatment plan. All questions were answered. Physical exam, labs, and imaging were discussed and reviewed in detail. As well as risks, benefits, and discussion of treatment choices. No major barriers to understanding were identified. The patient expressed understanding and agreement with the above treatment plan. The patient was made aware they should contact our office by phone for worsening of their current condition, the appearance of new symptoms, or with any questions or concerns. Compliance is encouraged with any medications and follow up testing that is ordered. It is a privilege to be allowed the opportunity to participate in? your urological care.? Again, if you have any questions or concerns If you have any questions or concerns please do not hesitate to contact me. The office is [phone]. This note is constructed using voice recognition software. While every effort has been made to ensure accuracy boom stick man errors may have been included. Yours sincerely, DAVID Antonio Coding Level of Care Code Est Pt Level 3 (78288) Diagnoses Recurrent UTI N39.0 Incomplete bladder emptying R33.9 Elevated PSA R97.20 Incontinence R32 CPT Codes Post Residual Void - PVR CPT Code: 30558-Yqfg Void Residual by ultrasound ([id number])
== END 2023-08-09 09:40 | disposition home or self-care (01) ==
PROVIDERS: PCP Family Medicine; Visit Provider Nurse Practitioner Family
DX: N39.0 Urinary tract infection, site not specified (principal); R33.9 Retention of urine, unspecified; R97.20 Elevated prostate specific antigen [PSA]; R32 Unspecified urinary incontinence
CPT/HCPCS: 99213

== ENCOUNTER → 2023-08-09 08:59 | Outpatient (BNVA) | payer MEDICARE, MEDICAID, SELFPAY | PROVIDERS: PCP Family Medicine; Visit Provider Nurse Practitioner Family | DX: N39.0 Urinary tract infection, site not specified (principal); R33.9 Retention of urine, unspecified; R97.20 Elevated prostate specific antigen [PSA]; R32 Unspecified urinary incontinence | CPT/HCPCS: 51798; 99212 ==

== ENCOUNTER 2023-10-06 12:02 | Outpatient (AMB) | payer MEDICARE, MEDICAID, SELFPAY ==
--- NOTE | 2023-10-06 12:28 | A.OFFVIS_ITS ---
Vital Signs 10/06/23 12:35 BP 108/74 Blood Pressure Location Lt brachial Position Sitting Pulse 76 Pulse Source Pulse Oximeter Pulse Oximetry (%) 99 Oxygen Delivery Method Room Air Intake Visit Reasons: Seen at [facility] ER Intake Note: Andrei presents in office today for a requested FUV; CC;Pt CCA reports that the pt was in the [facility] ED yesterday for hyponatremia and dehydration. No other significant information. CCA does have paperwork for the MD to sign. 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 03/02/23: Pt previously established with [facility] (Robina SERRANO) and referral for [facility] was initiated earlier this year when the pt was moving his bowel once every 2-3 days however since then he has also been seen by colorectal surgery (Dr Mares) and has had following medications added: Miralax 17g BID Reglan 10 QID Milk of mag 30 ml BID Previously was already on Linzess 290 Senna 17.2 BID Bisacodyl supp 10mg daily With the addition of medications through [facility] in October pt now has regular bowel habits. Varnish Filterer reports at least once BM a day which is soft. No blood in BM. No grunting/straining or discomfort while passing a BM. Has pureed diet and [facility] includes fiber sources such as oatmeal, green smoothies. As outlined above pt has limited mobility and has PT but mostly for upper body strength. 06/01/23: Here with a relay shop supervisor from [facility]. Collateral history was also obtained from her nurse at [facility] Chika. Reports that most of the days does not have any issues with moving bowels. However, when patient goes more than 3 days without having a bowel movement, they give him p.r.n. enema and suppository with good effect. Otherwise, patient does not appear to be in any distress, is having good appetite. 10/06/23: Here for follow up after admission to [facility] last month for SBO. Was admitted 09/08 to 09/16. There was also question of blood in stool. Managed conservatively under surgery care. SMall bowel follow through showed passage of contrast into small bowel so diet was advanced and pt eventually discharged. Since discharge has been doing well. No further abd pain, appetite is ok. Bowel movements are brown and lose. To note - has prev hx of SBO in 2011. Pt was also seen in ER on 10/03 - reason listed for hyponatremia. Varnish Filterer was informed to discuss this further with his PCP. [facility] Medical History Small bowel obstruction Constipation Seizures TBI (traumatic brain injury) Surgical History History of craniotomy Family History Father Dementia Chronic mental illness Mother Hypertension Social History Housing: Other Housing Other:: [facility] Patient Tobacco Use Status: Never used Tobacco e-Cigarette/Vaping Use: Never Used Second Hand Smoke Exposure: No service: No Current occupational status: disabled Current occupational exposures/hazards: No Cognitive needs: Yes Hearing needs: Yes Vision needs: No Review of Systems Const Unobtainable due to mental condition Physical Exam Vital Signs: Last Vital Signs Pulse 76 10/06/23 12:35 BP 108/74 10/06/23 12:35 Pulse Ox 99 10/06/23 12:35 Oxygen Delivery Method Room Air 10/06/23 12:35 Gen appear: in wheelchair, NAD HEENT: nonicteric, no cervical lymphadenopathy Chest: CTA CVS: Regular S1/S2 Abd: soft, nondistended Neuro: Awake, answers in yes/no Assessment & Plan Assessment & Plan (1) Small bowel obstruction: Code(s): K56.609 - Unspecified intestinal obstruction, unspecified as to partial versus complete obstruction Category: Medical (2) Normocytic anemia: Code(s): D64.9 - Anemia, unspecified Category: Medical (3) Constipation: Code(s): K59.00 - Constipation, unspecified Category: Medical (4) TBI (traumatic brain injury): Code(s): S06.9X9A - Unspecified intracranial injury with loss of consciousness of unspecified duration, initial encounter Category: Medical (5) Hospital discharge follow-up: Code(s): Z09 - Encounter for follow-up examination after completed treatment for conditions other than malignant neoplasm Category: Medical Plan Appears visit was set up to review episode of SBO that managed conservatively at [facility]. There was also ? blood in stool reported in discharge summary and recommendation was made for non-invasive work up. Pt's accompanying relay shop supervisor reports brown stools. Anemia is normocytic. Will recheck labs along with iron studies and if LEN low threshold to proceed with CT colonography. Plan: - CBC, iron studies, B12 and folate - CT colonography if anemia worse or has iron deficiency - Currently appears to be doing well on current bowel regimen and would not make any changes. - meds refilled Coding Level of Care Code Est Pt Level 4 (84216) Diagnoses Small bowel obstruction K56.609 Normocytic anemia D64.9 Constipation K59.00 TBI (traumatic brain injury) S06.9X9A Hospital discharge follow-up Z09
[2023-10-06 12:35] VITALS: BP 108/74; PULSE 76; O2SAT 99
== END 2023-10-06 13:29 | disposition home or self-care (01) ==
PROVIDERS: PCP Family Medicine; Visit Provider Internal Medicine
DX: K56.609 Unspecified intestinal obstruction, unspecified as to partial versus complete obstruction (principal); D64.9 Anemia, unspecified; K59.00 Constipation, unspecified; S06.9X9A Unspecified intracranial injury with loss of consciousness of unspecified duration, initial encounter; Z09 Encounter for follow-up examination after completed treatment for conditions other than malignant neoplasm
CPT/HCPCS: 99214

== ENCOUNTER → 2023-10-06 12:02 | Outpatient (BNVA) | payer MEDICARE, MEDICAID, SELFPAY | PROVIDERS: PCP Family Medicine; Visit Provider Internal Medicine | DX: Z09 Encounter for follow-up examination after completed treatment for conditions other than malignant neoplasm (principal); K56.609 Unspecified intestinal obstruction, unspecified as to partial versus complete obstruction; K59.00 Constipation, unspecified; D64.9 Anemia, unspecified; S06.9X9A Unspecified intracranial injury with loss of consciousness of unspecified duration, initial encounter; X58.XXXA Exposure to other specified factors, initial encounter; Y93.9 Activity, unspecified; Y92.9 Unspecified place or not applicable; Y99.9 Unspecified external cause status | CPT/HCPCS: 99212 ==

== ENCOUNTER 2023-10-22 09:08 | Outpatient (AMB) | payer MEDICARE, MEDICAID, SELFPAY ==
--- NOTE | 2023-10-22 09:15 | A.OFFPC_ITS ---
Vital Signs 10/22/23 09:27 Height 4 ft 11 in Weight 188 lb BMI 38.0 BP 110/68 Blood Pressure Location Lt brachial Position Sitting Pulse 82 Pulse Source Pulse Oximeter Pulse Oximetry (%) 95 Oxygen Delivery Method Room Air Intake Visit Reasons: Follow-up?seizures.??Follow-up?labs Intake Note: Caretakers?uncertain?why?patient?is?here?today?and?think?he?is?here?for?complete ?p hysical?exam.??However,?patient?had?head-to-toe?exam?at?last?office?visit?[place] Patient?was?at?ED?for?seizure?activity?recently. Allergies No Known Allergies Allergy (Unknown, Verified 10/22/23 09:18) none Tobacco use date assessed: 10/22/23 Dental Screening Dental Screen Date: 07/30/23 HPI Follow-up?seizures.??Follow-up?labs HPI Details Recent?visit?to?[facility]?ED?for?seizure- like?activity.??Patient?was?staring?and?unresponsive. Labs?showed?mild?anemia?and?mild?hyponatremia. 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 So dium?level?was?131?and?more?recently?133.??Stable. Patient?has?known?mild?and?chronic?anemia.??Stable [facility] Medical History Constipation Seizures TBI (traumatic brain injury) Surgical History History of craniotomy Family History Father Dementia Chronic mental illness Mother Hypertension Social History Housing: Other Housing Other:: [facility] Patient Tobacco Use Status: Never used Tobacco e-Cigarette/Vaping Use: Never Used Second Hand Smoke Exposure: No service: No Current occupational status: disabled Current occupational exposures/hazards: No Cognitive needs: Yes Hearing needs: Yes Vision needs: No Questionnaire PHQ-9 Over the last 2 weeks, how often have you been bothered by any of the following problems? 10892 - PHQ-9 Billing: Patient declined-do not bill (Patient is non verbal) Source: Developed by Drs. Jose Aldana, Shahriar Zacarias and colleagues, with an educational jose from [employer]. Thrive Questionnaire Date Thrive assessed: 07/30/23 AUDIT C Alcohol Use Questionnaire (AUDIT-C) 1. How often do you have a drink containing alcohol?: Never 3. How often do you have six or more drinks on one occasion?: Never Total Score: 0 KRYSTIAN-7 AMB Questionnaire KRYSTIAN-7 Date KRYSTIAN - 7 assessed: 07/30/23 Source: Developed by Drs. Jose Aldana, Shahriar Zacarias and colleagues, with an educational jose from [employer]. Review of Systems Const Denies chills, Denies fatigue, Denies fever(s), Denies headache(s) and Denies weakness ENT Denies dizziness and Denies headache(s) Card Denies chest pain, Denies lightheadedness, Denies dyspnea and Denies other (Palpitations) Resp Details: Cough Denies cough, Denies dyspnea, Denies wheezing and Denies other ( shortness of breath) Musc Denies numbness and Denies tingling Neuro Denies dizziness, Denies headache(s), Denies numbness, Denies tingling, Denies paresthesias and Denies weakness Psych Denies anxiety and Denies depression Endo Denies fatigue Aller/Immun Denies wheezing Physical exam (Primary Care) Vital Signs: Last Vital Signs Pulse 82 10/22/23 09:27 BP 110/68 10/22/23 09:27 Pulse Ox 95 10/22/23 09:27 Oxygen Delivery Method Room Air 10/22/23 09:27 Tobacco/Smoking Status: Tobacco use Status Tobacco use date assessed 10/22/23 10/22/23 09:20 Patient Tobacco Use Status Never used Tobacco 10/22/23 09:20 e-Cigarette/Vaping Use Never Used 10/22/23 09:20 Thrive Assessment: Date of Thrive Assessment Date Thrive assessed 07/30/23 10/22/23 09:20 Const General: no acute distress and well developed Nutritional Appearance: well nourished Orientation/consciousness: patient oriented x3 HENMT Head: Yes normocephalic and Yes atraumatic Eyes General: appearance normal, both eyes and all related structures Pupils: Equal, round and reactive pupils present EOM: EOMs intact bilaterally Resp Other: Crackles at mid lung andrews and bases bilaterally Effort & Inspection: normal respiratory effort Auscultation: not clear to auscultation bilaterally, crackles and rales Cardio Rate: regular rate Rhythm: regular rhythm Heart sounds: S1 normal heart sound present, S2 normal heart sound present, no gallops, no murmurs and no rubs Neuro General: patient oriented x3 and No gait normal Cranial nerves: Yes Equal, round and reactive pupils present Psych Affect: normal affect Assessment and Plan Assessment & Plan (1) Seizures: Code(s): R56.9 - Unspecified convulsions Plan: Recent?seizure?activity. Continue?current?antiseizure?medications Follow-up?with?Neurology (2) Normocytic anemia: Code(s): D64.9 - Anemia, unspecified Plan: Mild?stable?normocytic?anemia. Anemia?of?chronic?disease We?continue?to?monitor (3) Abnormal lung sounds: Code(s): R09.89 - Other specified symptoms and signs involving the circulatory and respiratory systems Plan: Abnormal?lung?sounds?bilaterally?and?concern?for?pneumonia Will?start?empiric?cephalexin Chest?x-ray?stat If?indicated?by?imaging?or?if?not?improving,?will?refer?patient?to?pulmonology. (4) SIADH (syndrome of inappropriate ADH production): Code(s): E22.2 - Syndrome of inappropriate secretion of antidiuretic hormone Plan: Mild?hyponatremia - patient?has?known?SIADH?likely?secondary?to?TBI?and?also?his?antiseizure?medicat ions. Continue?sodium?chloride No?medication?changes. Monitoring?sodium Orders: Orders XR chest 2V Today R09.89 - Other specified symptoms and signs involving the circulatory and respiratory systems Medications: New cephalexin 500 mg PO Q12H 10 days 20 caps 0RF Coding Level of Care Code Est Pt Level 4 (67766) Diagnoses Seizures R56.9 Normocytic anemia D64.9 Abnormal lung sounds R09.89 SIADH (syndrome of inappropriate ADH production) E22.2
[2023-10-22 09:27] VITALS: BP 110/68; PULSE 82; O2SAT 95; BMI 38.0
== END 2023-10-22 15:12 | disposition home or self-care (01) ==
PROVIDERS: PCP Family Medicine; Visit Provider Family Medicine
DX: R56.9 Unspecified convulsions (principal); E22.2 Syndrome of inappropriate secretion of antidiuretic hormone; D64.9 Anemia, unspecified; R09.89 Other specified symptoms and signs involving the circulatory and respiratory systems
CPT/HCPCS: 99214

== ENCOUNTER 2023-12-10 12:47 | Outpatient (AMB) | payer MEDICARE, MEDICAID, SELFPAY ==
--- NOTE | 2023-12-10 12:52 | MHC.OFFVIS ---
Vital Signs 12/10/23 13:01 Height 4 ft 11 in BP 93/67 Blood Pressure Location Lt brachial Position Sitting Pulse 79 Intake Visit Reasons: follow up Intake Note: Andrei presents in the office as a follow up. CC: Stomach pains, sometimes he gets constipation and diarrhea as well. Patient not very vocal. 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 03/02/23: Pt previously established with [facility] (Robina SERRANO) and referral for [facility] was initiated earlier this year when the pt was moving his bowel once every 2-3 days however since then he has also been seen by colorectal surgery (Dr Mares) and has had following medications added: Miralax 17g BID Reglan 10 QID Milk of mag 30 ml BID Previously was already on Linzess 290 Senna 17.2 BID Bisacodyl supp 10mg daily With the addition of medications through [facility] in October pt now has regular bowel habits. [employer] reports at least once BM a day which is soft. No blood in BM. No grunting/straining or discomfort while passing a BM. Has pureed diet and [facility] includes fiber sources such as oatmeal, green smoothies. As outlined above pt has limited mobility and has PT but mostly for upper body strength. 06/01/23: Here with a federal java developer from [facility]. Collateral history was also obtained from her nurse at [facility] Chika. Reports that most of the days does not have any issues with moving bowels. However, when patient goes more than 3 days without having a bowel movement, they give him p.r.n. enema and suppository with good effect. Otherwise, patient does not appear to be in any distress, is having good appetite. 10/06/23: Here for follow up after admission to [facility] last month for SBO. Was admitted 09/08 to 09/16. There was also question of blood in stool. Managed conservatively under surgery care. SMall bowel follow through showed passage of contrast into small bowel so diet was advanced and pt eventually discharged. Since discharge has been doing well. No further abd pain, appetite is ok. Bowel movements are brown and lose. To note - has prev hx of SBO in 2011. Pt was also seen in ER on 10/03 - reason listed for hyponatremia. [employer] was informed to discuss this further with his PCP. 12/10/23: Here for follow up, accompanied by federal java developer Raul who provides most of the history. No further issues with constipation. No further hospitalisations since he was last seen. Labs pending, reordered today. [facility] Medical History Small bowel obstruction Constipation Seizures TBI (traumatic brain injury) Surgical History History of craniotomy Family History Father Dementia Chronic mental illness Mother Hypertension Social History Housing: Other Housing Other:: Nursing Home Patient Tobacco Use Status: Never used Tobacco e-Cigarette/Vaping Use: Never Used Second Hand Smoke Exposure: No service: No Current occupational status: disabled Current occupational exposures/hazards: No Cognitive needs: Yes Hearing needs: Yes Vision needs: No Review of Systems Const Unobtainable due to mental condition Physical Exam Vital Signs: Last Vital Signs Pulse 79 12/10/23 13:01 BP 93/67 12/10/23 13:01 wheelchair bound NAD Nonicteric Responds by nodding/shaking head No wincing to abd palpation Assessment & Plan Assessment & Plan (1) Normocytic anemia: Code(s): D64.9 - Anemia, unspecified Category: Medical (2) Constipation: Code(s): K59.00 - Constipation, unspecified Category: Medical (3) TBI (traumatic brain injury): Code(s): S06.9X9A - Unspecified intracranial injury with loss of consciousness of unspecified duration, initial encounter Category: Medical Plan Reviewed with pt, accompanynig aid Raul as well as community center worker Chery that will recommend updated labs to further assess anemia as well as CT colonography. Further care contingent on results of above. Pt's next of kin is his mother however has a guardian for medical decision making Shekhar Pedraza - [phone]. Plan: - CBC, iron studies, B12 and folate - CT colonography - Follow up after results available Orders: Orders Ferritin Today D64.9 - Anemia, unspecified CT colonography Today K92.1 - Melena Complete Blood Count no Diff Today D64.9 - Anemia, unspecified IRON PROFILE Today D64.9 - Anemia, unspecified Basic Metabolic Panel Today N39.0 - Urinary tract infection, site not specified Vitamin B12 and Folate Today D64.9 - Anemia, unspecified Coding Level of Care Code Est Pt Level 4 (76517) Diagnoses Normocytic anemia D64.9 Constipation K59.00 TBI (traumatic brain injury) S06.9X9A
[2023-12-10 13:01] VITALS: BP 93/67; PULSE 79
== END 2023-12-10 13:24 | disposition home or self-care (01) ==
PROVIDERS: PCP Family Medicine; Visit Provider Internal Medicine
DX: D64.9 Anemia, unspecified (principal); K59.00 Constipation, unspecified; S06.9X9A Unspecified intracranial injury with loss of consciousness of unspecified duration, initial encounter
CPT/HCPCS: 99214

== ENCOUNTER → 2023-12-10 12:47 | Outpatient (BNVA) | payer MEDICARE, MEDICAID, SELFPAY | PROVIDERS: PCP Family Medicine; Visit Provider Internal Medicine | DX: K59.00 Constipation, unspecified (principal); D64.9 Anemia, unspecified; S06.9X9A Unspecified intracranial injury with loss of consciousness of unspecified duration, initial encounter; X58.XXXA Exposure to other specified factors, initial encounter; Y93.9 Activity, unspecified; Y92.9 Unspecified place or not applicable; Y99.9 Unspecified external cause status; Z98.2 Presence of cerebrospinal fluid drainage device; Z99.3 Dependence on wheelchair | CPT/HCPCS: 99212 ==

== ENCOUNTER 2023-12-18 21:05 | Emergency (ER) | payer MEDICARE, MEDICAID, SELFPAY ==
--- NOTE | 2023-12-18 | ECG_ITS ---
Test Reason : AMS Blood Pressure : / mmHG Vent. Rate : 082 BPM Atrial Rate : 082 BPM P-R Int : 186 ms QRS Dur : 110 ms QT Int : 380 ms P-R-T Axes : 032 012 036 degrees QTc Int : 443 ms Normal sinus rhythm Normal ECG When compared with ECG of 09-JAN-2021 13:15, No significant change was found Referred By: Generic ED Physician Electronically Signed By:IVET JACOBS
--- NOTE | ~2023-12-18 | XR_ITS ---
EXAMINATION: XR CHEST CLINICAL INFORMATION: Altered mental status. Concern for aspiration. COMPARISON: 04/12/2019. TECHNIQUE: Frontal view of the chest was obtained. FINDINGS: The cardiomediastinal silhouette is stable. There is no focal lung consolidation or pleural effusions. The bony structures and soft tissues are unremarkable. XR/XR chest 1V IMPRESSION: No acute cardiopulmonary process.
[2023-12-18 21:14] VITALS: BP 110/80; PULSE 80; O2SAT 97
[2023-12-18 21:17] VITALS: BP 103/69; PULSE 87; RESP 18; TEMP 36.9; O2SAT 93; BMI 27.0
[2023-12-18 21:30] VITALS: TEMP 37.6
--- NOTE | 2023-12-18 21:59 | PC.NURSE ---
pt slightly warm to touch, rectal temp 99.6, pt changed in hospital gown, UA obtained via straight cath. vomit or food around mouth, lung sounds slightly diminished. CXR ordered
[2023-12-18 22:15] LABS: Appearance Urine Clear; Color Urine Yellow; Glucose Urine UA Negative (Negative); Leukocyte Esterase Urine Trace (Negative); Nitrite Urine Negative (Negative); PH 6.5 (5.0-9.0); Specific Gravity - Urine >= 1.030 (1.005-1.025); UMIC TRIGGER UACC YES; Urine Blood Negative (Negative); Urine Ketones Trace mg/dL (Negative); Urine Protein Negative (Neg-Trace)
[2023-12-18 22:31] LABS: Bacteria Urine None Seen (None Seen); Hyaline Casts Urine 0-2 /LPF (0-2); RBC Urine 0-2 /HPF (0-2); Squamous Epithelial Cell Urine 0-2 /HPF (0-2); WBC Urine 0-5 /HPF (0-5)
[2023-12-18 22:35] LABS: Alanine Aminotransferase 18 U/L (0-40); Albumin Level 3.6 g/dL (3.5-5.0); Alkaline Phosphatase 114 U/L (39-117); Anion Gap 15 (12-20); Aspartate Amino Transferase 16 U/L (5-37); Bilirubin Total 0.2 mg/dL (0.0-1.0); Blood Urea Nitrogen 15 mg/dL (9-16); Carbon Dioxide 21 mmol/L (22-29); Chloride 107 mmol/L (96-108); Creatinine Clr Calc Pharmacy 109.8; Estimated Glomerular Filt Rate > 60; Glucose Random 98 mg/dL (60-115); Potassium 4.8 mmol/L (3.3-5.1); Sodium 138 mmol/L (135-145); Total Protein 6.2 g/dL (6.5-8.0)
[2023-12-18 22:41] LABS: COVID-19 Test Negative (Negative); IDNOW Serial# 6674DD1D
--- NOTE | 2023-12-18 23:11 | ED_ITS ---
HPI - Altered Mental Status General Chief Complaint: Altered Mental Status Stated Complaint: less responsive than normal per home staff Time Seen by Provider: 12/18/23 23:09 Source: EMS and RN notes reviewed Mode of arrival: EMS Limitations: no limitations History of Present Illness ED Provider: lynsey MILLAN narrative: Patient is 62 years old with history of TBI hyponatremia came from snf as staff noticed patient is less responsive than usual for EMS who know the patient very well patient isn't at baseline no vomiting no diarrhea patient with minimal conversation no cough no fever no rash no recent fall Related Data Home Medications ?Medication ?Instructions ?Recorded ?Confirmed lacosamide 150 mg tablet 150 mg PO .COMPLEX 08/28/21 08/09/23 guaifenesin 600 mg tablet, 600 mg PO Q12H PRN 05/20/22 08/09/23 extended release 12 hr (Mucinex) oxcarbazepine 300 mg tablet 300 mg PO .evening 05/20/22 08/09/23 (Trileptal) oxcarbazepine 600 mg tablet 600 mg PO .afternoon 05/20/22 08/09/23 (Trileptal) lamotrigine 100 mg tablet 100 mg PO BEDTIME 01/11/23 08/09/23 lamotrigine 200 mg tablet 200 mg PO TID 01/11/23 08/09/23 levetiracetam 750 mg tablet 1,500 mg PO BID 01/11/23 08/09/23 (Keppra) oxcarbazepine 300 mg tablet 900 mg PO BEDTIME 01/11/23 08/09/23 (Trileptal) metoclopramide HCl 10 mg tablet 10 mg PO Q6H PRN 07/30/23 08/09/23 (Reglan) risperidone 2 mg tablet (Risperdal) 2 mg PO BID 07/30/23 08/09/23 diazepam 10 mg/spray (0.1 mL) mg intranasal 08/09/23 08/09/23 nasal spray (Valtoco) gabapentin 100 mg capsule mg PO 12/10/23 Previous Rx's ?Medication ?Instructions ?Recorded underpads 23 X 36 #72 ea 11/11/22 acetaminophen 325 mg tablet 650 mg (2 x 325 mg) PO Q6H PRN 12/23/22 fever or pain 30 days #60 tabs miscellaneous medical supply See Rx Instructions miscellaneous 01/11/23 .COMPLEX 1 month #2 ea miscellaneous medical supply See Rx Instructions miscellaneous 04/15/23 .COMPLEX 1 month #140 ea cholecalciferol (vitamin D3) 50 50 mcg PO QAM #28 tabs 05/10/23 mcg (2,000 unit) tablet disposable gloves (Disposable #1,000 ea 05/14/23 Latex-Free Gloves) miscellaneous medical supply See Rx Instructions miscellaneous 05/14/23 .COMPLEX 1 month #2 ea lactulose 10 gram/15 mL oral 30 ml PO TID for constipation 30 05/21/23 solution (Enulose) days #2,700 mL starch (thickening) (Thick-It oral 1 ea PO TIDWMEAL #2,040 grams 05/25/23 powder) simethicone 80 mg chewable tablet 80 mg PO TID abdominal distention 05/26/23 (Gas Relief 80 (simethicone)) 90 days #270 tabs bisacodyl 10 mg rectal suppository 10 mg DE DAILY constipation 90 06/01/23 days #100 ea magnesium hydroxide 2,400 mg/10 mL 30 ml PO BEDTIME PRN constipation 06/01/23 oral suspension (Milk Of Magnesia #1,000 mL Concentrated) polyethylene glycol 3350 17 17 g PO BID #510 grams 06/01/23 gram/dose oral powder (Miralax) ferrous gluconate 324 mg (37.5 mg 324 mg PO DAILY 30 days #30 tabs 08/11/23 iron) tablet cephalexin 500 mg capsule 500 mg PO Q12H 10 days #20 caps 10/22/23 magnesium oxide 400 mg (241.3 mg 400 mg PO DAILY #30 tabs 12/02/23 magnesium) tablet ascorbic acid (vitamin C) 1,000 mg 1 g PO DAILY 90 days #90 caps 12/09/23 capsule methenamine hippurate 1 gram tablet 1 g PO DAILY 90 days #90 tabs 12/09/23 docusate sodium 100 mg tablet 200 mg (2 x 100 mg) PO BID #40 tabs 12/13/23 (Stool Softener) linaclotide 290 mcg capsule 290 mcg PO DAILY #30 caps 12/13/23 (Linzess) omeprazole 20 mg capsule,delayed 20 mg PO DAILY #19 caps 12/13/23 release Allergies Allergy/AdvReac Type Severity Reaction Status Date / Time No Known Allergies Allergy Unknown none Verified 12/18/23 21:17 Review of Systems 2 Review of Systems: Yes all other systems are reviewed and are negative [facility] Past Medical History Medical History Small bowel obstruction Constipation Seizures TBI (traumatic brain injury) Surgical History History of craniotomy Family History Family History Father Dementia Chronic mental illness Mother Hypertension Social History Social History Housing: Other Housing Other:: Shelter Patient Tobacco Use Status: Never used Tobacco e-Cigarette/Vaping Use: Never Used Second Hand Smoke Exposure: No Advance Directives: No Advance Directives Information Provided: No service: No Current occupational status: disabled Current occupational exposures/hazards: No Cognitive needs: Yes Hearing needs: Yes Vision needs: No Physical Exam ED Vital Signs: Vital Signs - 24 hr 12/18/23 21:17 12/18/23 21:30 12/19/23 00:00 Temperature 98.4 F 99.6 F 97.2 F Pulse Rate 87 71 Respiratory Rate 18 15 Blood Pressure 103/69 127/82 Pulse Oximetry 93 96 Oxygen Delivery Method Room Air Room Air BMI result Body Mass Index 27.0 Appearance: Alert. And awake No acute distress. Eyes: Pupils equal reactive to light ENT: Pharynx normal. Oral Mucosa moist Neck: Normal inspection. Neck supple. CVS: Normal heart rate and rhythm. Pulses normal. Respiratory: No respiratory distress. Equal air entry bilateral, no wheezing/rales/rhonchi Abdomen: Soft and nontender. Bowel sounds are present, no mass palpable, no CVA tenderness Skin: Skin warm and dry. Normal skin color. Normal skin turgor. Extremities: No lower extremity edema. No calf tenderness Neuro: Alert and awake limited movements of right extremity which is contracted Medical Decision Making Medical Decision Making MDM Narrative: Patient with TBI with no acute metabolic changes patient is at baseline will discharge patient back to snf Lab Data [facility] Lab Attestation statement: I reviewed the patient's lab results. 12/18/23 23:18 12/18/23 22:04 Labs: Lab Results 12/18/23 12/18/23 12/18/23 Range/Units 22:00 22:04 23:18 WBC 5.0 (4.8-10.8) X10*3/uL RBC 3.91 L (4.60-5.80) X10*6/uL Hgb 11.6 L (14.0-18.0) g/dl Hct 34.4 L (42.0-52.0) % MCV 88.0 (80.0-98.0) fL MCH 29.7 (27.0-33.0) pg MCHC 33.7 (31.0-36.0) g/dl RDW 12.1 (11.0-16.0) % Plt Count 243 (160-400) X10*3/uL MPV 8.7 L (9.4-12.4) fL Immature Gran % (Auto) 0.4 (0.0-0.4) % Neut % (Auto) 62.9 (45-73) % Lymph % (Auto) 26.8 (20-40) % [place] % (Auto) 9.5 (2-11) % Eos % (Auto) 0.2 (0-4) % Baso % (Auto) 0.2 (0-2) % Lymph # (Auto) 1.3 (1.2-4.9) X10*3/uL [place] # (Auto) 0.5 (0.1-1.2) X10*3/uL Eos # (Auto) 0.0 (0.0-0.4) X10*3/uL Baso # (Auto) 0.0 (0.0-0.2) X10*3/uL Abs Immat Gran (auto) 0.02 (0.00-0.03) X10*3/uL Absolute Neuts (auto) 3.1 (2.0-8.3) x10*3/uL Absolute Nucleated RBC 0.000 (0.0-0.012) X10*3/uL Nucleated RBC % (auto) 0.0 (0.0-0.2) /100WBC Sodium 138 (135-145) mmol/L Potassium 4.8 D (3.3-5.1) mmol/L Chloride 107 (96-108) mmol/L Carbon Dioxide 21 L (22-29) mmol/L Anion Gap 15 (12-20) BUN 15 (9-16) mg/dL Creatinine 0.72 (0.5-1.4) mg/dL Estim Creat Clear Calc 109.8 Estimated GFR > 60 Random Glucose 98 (60-115) mg/dL Calcium 9.0 (8.4-10.2) mg/dL Total Bilirubin 0.2 (0.0-1.0) mg/dL AST 16 (5-37) U/L ALT 18 (0-40) U/L Alkaline Phosphatase 114 (39-117) U/L Total Protein 6.2 L (6.5-8.0) g/dL Albumin 3.6 (3.5-5.0) g/dL Urine Color Yellow Urine Appearance Clear Urine pH 6.5 (5.0-9.0) Ur Specific [place] >= 1.030 H (1.005-1.025) Urine Protein Negative (Neg-Trace) mg/dL Urine Glucose (UA) Negative (Negative) mg/dL Urine Ketones Trace (Negative) mg/dL Urine Blood Negative (Negative) Urine Nitrite Negative (Negative) Ur Leukocyte Esterase Trace H (Negative) Urine RBC 0-2 (0-2) /HPF Urine WBC 0-5 (0-5) /HPF Ur Squamous Epith Cells 0-2 (0-2) /HPF Urine Bacteria None Seen (None Seen) Hyaline Casts 0-2 (0-2) /LPF COVID-19 (TEETEE) Negative (Negative) COVID-19 Clin Com See Note Discharge Plan Discharge Clinical Impression: Closed TBI (traumatic brain injury) Patient Disposition: Home, Self-Care Instructions: Cognitive Disorders after Traumatic Brain Injury (ED) Additional Instructions: Follow with PCP Prescriptions: No Action acetaminophen 325 mg tablet 650 mg PO Q6H PRN (Reason: fever or pain) 30 Days Qty: 60 4RF cholecalciferol (vitamin D3) 50 mcg (2,000 unit) tablet 50 mcg PO QAM Qty: 28 5RF (DME) disposable gloves [Disposable Latex-Free Gloves] Misc See Rx Instructions .ROUTE .MEDSUPPLY Qty: 1000 6RF Rx Instructions: As directed size medium /large miscellaneous medical supply Misc See Rx Instructions miscellaneous .COMPLEX 30 Days Qty: 2 6RF Rx Instructions: Reusable under pads lactulose [Enulose] 10 gram/15 mL solution 30 ml PO TID 30 Days Qty: 2700 2RF Thick-It Powder 1 ea PO TIDWMEAL Qty: 0 6RF simethicone [Gas Relief 80 (simethicone)] 80 mg tablet,chewable 80 mg PO TID 90 Days Qty: 270 3RF ferrous gluconate 324 mg (37.5 mg iron) tablet 324 mg PO DAILY 30 Days Qty: 30 3RF magnesium oxide 400 mg (241.3 mg magnesium) tablet 400 mg PO DAILY Qty: 30 4RF methenamine hippurate 1 gram tablet 1 g PO DAILY 90 Days Qty: 90 1RF ascorbic acid (vitamin C) 1,000 mg capsule 1 g PO DAILY 90 Days Qty: 90 0RF Linzess 290 mcg capsule 290 mcg PO DAILY Qty: 30 0RF omeprazole 20 mg capsule,delayed release(DR/EC) 20 mg PO DAILY Qty: 19 0RF docusate sodium [Stool Softener] 100 mg tablet 200 mg PO BID Qty: 40 0RF levetiracetam [Keppra] 750 mg tablet 1,500 mg PO BID lamotrigine 200 mg tablet 200 mg PO TID miscellaneous medical supply [facility] [place] See Rx Instructions miscellaneous .COMPLEX 30 Days Qty: 2 6RF Rx Instructions: Complete catheter kit cephalexin 500 mg capsule 500 mg PO Q12H 10 Days Qty: 20 0RF lacosamide 150 mg tablet 150 mg PO .COMPLEX Rx Instructions: 150 mg PO 1 tab in am, 0.5 tabs at noon, 2 tabs in the pm; oxcarbazepine [Trileptal] 300 mg tablet 300 mg PO .evening oxcarbazepine [Trileptal] 600 mg tablet 600 mg PO .afternoon guaifenesin [Mucinex] 600 mg tablet extended release 12hr 600 mg PO Q12H PRN lamotrigine 100 mg tablet 100 mg PO BEDTIME Rx Instructions: Take 1 tablet at Bedtime oxcarbazepine [Trileptal] 300 mg tablet 900 mg PO BEDTIME (DME) underpads 23 X 36 pad See Rx Instructions .ROUTE .MEDSUPPLY Qty: 72 6RF Rx Instructions: As directed miscellaneous medical supply Misc See Rx Instructions miscellaneous .COMPLEX 30 Days Qty: 140 6RF Rx Instructions: Extra large briefs risperidone [Risperdal] 2 mg tablet 2 mg PO BID metoclopramide HCl [Reglan] 10 mg tablet 10 mg PO Q6H PRN magnesium hydroxide [Milk Of Magnesia Concentrated] 2,400 mg/10 mL suspension 30 ml PO BEDTIME PRN (Reason: constipation) Qty: 1000 0RF polyethylene glycol 3350 [Miralax] 17 gram/dose powder 17 g PO BID Qty: 510 2RF bisacodyl 10 mg suppository 10 mg DE DAILY 90 Days Qty: 100 3RF Valtoco 10 mg/spray (0.1 mL) spray,non-aerosol intranasal gabapentin 100 mg capsule PO Interventions: ED Discharge Assessment Last Done: 12/19/23 02:55 Discharge Date/Time: 12/19/23 02:56 Print Language: Belarusian
[2023-12-18 23:21] LABS: MANUAL DIFF FLAG NO
[2023-12-18 23:23] LABS: Basophils Percent Auto 0.2 % (0-2); Eosinophils Percent Auto 0.2 % (0-4); Hematocrit 34.4 % (42.0-52.0); Hemoglobin 11.6 g/dl (14.0-18.0); Imm Gran Abs Auto 0.02 X10*3/uL (0.00-0.03); Imm Gran Pct Auto 0.4 % (0.0-0.4); Lymphocytes Absolute Auto 1.3 X10*3/uL (1.2-4.9); Lymphocytes Percent Auto 26.8 % (20-40); Mean Corpuscular HGB Conc 33.7 g/dl (31.0-36.0); Mean Corpuscular Hemoglobin 29.7 pg (27.0-33.0); Mean Platelet Volume 8.7 fL (9.4-12.4); Monocytes Absolute Auto 0.5 X10*3/uL (0.1-1.2); Monocytes Percent Auto 9.5 % (2-11); Neutrophils Absolute Auto 3.1 x10*3/uL (2.0-8.3); Neutrophils Percent Auto 62.9 % (45-73); Platelet Count 243 X10*3/uL (160-400); Red Blood Count 3.91 X10*6/uL (4.60-5.80); Red Cell Distribution Width 12.1 % (11.0-16.0)
[2023-12-19] VITALS: BP 127/82; PULSE 71; RESP 15; TEMP 36.2; O2SAT 96
[2023-12-19 02:00] VITALS: BP 134/86; PULSE 73; RESP 14; TEMP 36.1; O2SAT 96
[2023-12-19 02:55] VITALS: BP 134/86; PULSE 73; RESP 14; TEMP 36.1; O2SAT 96
== END 2023-12-19 02:56 | disposition home or self-care (01) ==
PROVIDERS: Emergency Provider Internal Medicine; PCP Family Medicine
DX: R41.82 Altered mental status, unspecified (principal); Z87.820 Personal history of traumatic brain injury; Z79.899 Other long term (current) drug therapy; Z11.52 Encounter for screening for COVID-19
CPT/HCPCS: 71045; 80053; 81001; 85025; 87635; 93005; 99283; 99284

== ENCOUNTER 2024-04-05 12:40 | Outpatient (AMB) | payer MEDICARE, MEDICAID, SELFPAY ==
[2024-04-05 12:48] VITALS: BP 132/76; PULSE 74; O2SAT 98
--- NOTE | 2024-04-05 12:48 | A.OFFVIS_ITS ---
Vital Signs 04/05/24 12:48 Height 5 ft 10 in BP 132/76 Blood Pressure Location Lt radial Position Sitting Pulse 74 Pulse Source Pulse Oximeter Pulse Oximetry (%) 98 Oxygen Delivery Method Room Air Intake Visit Reasons: 6 month follow up Intake Note: Andrei presents in office today for a scheduled 6 mos FUV. CC; Any changes or new sx since last visit? No significant changes or new concerns since last visit. Any labs or diagnostics since last visit? ?None Bellhop Captain Required: No Allergies No Known Allergies Allergy (Unknown, Verified 12/18/23 21:17) none HPI Comments Details: 62 y.o M with PMH of TBI s/p RIGHT OF WAY CUTTER shunt, minimally verbal, wheelchair bound, seizure disorder, remote hx of SBO s/p VIKTORIYA 2011, who presents from [facility] for follow up. 03/02/23: Pt previously established with [facility] (Robina SERRANO) and referral for [facility] [place] [place] [facility] was initiated earlier this year when the pt was moving his bowel once every 2-3 days however since then he has also been seen by colorectal surgery (Dr Mares) and has had following medications added: Miralax 17g BID Reglan 10 QID Milk of mag 30 ml BID Previously was already on Linzess 290 Senna 17.2 BID Bisacodyl supp 10mg daily With the addition of medications through [facility] in October pt now has regular bowel habits. Geophysical Manager reports at least once BM a day which is soft. No blood in BM. No grunting/straining or discomfort while passing a BM. Has pureed diet and fdc includes fiber sources such as oatmeal, green smoothies. As outlined above pt has limited mobility and has PT but mostly for upper body strength. 06/01/23: Here with a finished carpet inspector from [facility]dc. Collateral history was also obtained from her nurse at [facility] Chika. Reports that most of the days does not have any issues with moving bowels. However, when patient goes more than 3 days without having a bowel movement, they give him p.r.n. enema and suppository with good effect. Otherwise, patient does not appear to be in any distress, is having good appetite. 10/06/23: Here for follow up after admission to [facility] last month for SBO. Was admitted 09/08 to 09/16. There was also question of blood in stool. Managed conservatively under surgery care. Small bowel follow through showed passage of contrast into small bowel so diet was advanced and pt eventually discharged. Since discharge has been doing well. No further abd pain, appetite is ok. Bowel movements are brown and lose. To note - has prev hx of SBO in 2011. Pt was also seen in ER on 10/03 - reason listed for hyponatremia. Geophysical Manager was informed to discuss this further with his PCP. 12/10/23: Here for follow up, accompanied by finished carpet inspector Raul who provides most of the history. No further issues with constipation. No further hospitalisations since he was last seen. Labs pending, reordered today. 04/05/2024: Here for follow up which was supposed to be done after the last visit. Labs not done. Pt scheduled for CT colonography on 01/27 but didnt show. Call placed to Carmen at his fdc - recommendations relayed again. [facility] Medical History Small bowel obstruction Constipation Seizures TBI (traumatic brain injury) Surgical History History of craniotomy Family History Father Dementia Chronic mental illness Mother Hypertension Social History Housing: Other Housing Other:: Custodial Patient Tobacco Use Status: Never used Tobacco e-Cigarette/Vaping Use: Never Used Second Hand Smoke Exposure: No service: No Current occupational status: disabled Current occupational exposures/hazards: No Cognitive needs: Yes Hearing needs: Yes Vision needs: No Review of Systems Const All systems reviewed & are unremarkable except as noted in HPI and below Physical Exam Vital Signs: Last Vital Signs Pulse 74 04/05/24 12:48 BP 132/76 04/05/24 12:48 Pulse Ox 98 04/05/24 12:48 Oxygen Delivery Method Room Air 04/05/24 12:48 wheelchair bound NAD Nonicteric Responds by nodding/shaking head No wincing to abd palpation Assessment & Plan Assessment & Plan (1) Normocytic anemia: Code(s): D64.9 - Anemia, unspecified Category: Medical (2) Constipation: Code(s): K59.00 - Constipation, unspecified Category: Medical (3) TBI (traumatic brain injury): Code(s): S06.9X9A - Unspecified intracranial injury with loss of consciousness of unspecified duration, initial encounter Category: Medical Plan Reviewed with pt, accompanynig aid Raul as well as nursing radio time sales supervisor Carmen ([phone]) that further assessment and evaluation is contingent on results of the blood work and CT colonography. Phone number provided to call [facility] [place] [place] [facility] to rebook this. Further care contingent on results of above. Pt's next of kin is his mother however has a guardian for medical decision making Shekhar Pedraza - [phone]. Plan: - CBC, iron studies, B12 and folate - CT colonography - Pt's finished carpet inspector to call us after CT colonography done Coding Level of Care Code Est Pt Level 3 (54980) Diagnoses Normocytic anemia D64.9 Constipation K59.00 TBI (traumatic brain injury) S06.9X9A
--- OUTSIDE RECORDS SUMMARY | 2024-04-11 19:13 | XMS_ITS | Continuity of Care Document ---
Author Organization [facility] ter Address [address] [place] [id number]- Support Name Relationship Address Phone SAM FELIX Unknown Unavailable DONNY METZ mother Unknown Unavailable MANCUSO, AVA Personal Relationship Unknown Lisa vailable MANCUSO, AVA Personal Relationship Unknown Lisa vailable ROBERTS, PRESTON Other Unknown Unavailable MANCUSO, AVA Personal Relationship Unknown Lisa vailable MANCUSO, AVA Personal Relationship Unknown Lisa vailable MANCUSO, AVA Personal Relationship Unknown Lisa vailable MANCUSO, AVA Personal Relationship Unknown Lisa vailable MANCUSO, AVA Personal Relationship Unknown Lisa vailable MANCUSO, AVA Personal Relationship Unknown Lisa vailable MANCUSO, AVA Personal Relationship Unknown Lisa vailable MANCUSO, AVA Personal Relationship Unknown Lisa vailable MANCUSO, AVA Personal Relationship Unknown Lisa vailable MANCUSO, AVA Personal Relationship Unknown Lisa vailable MANCUSO, AVA Personal Relationship Unknown Lisa vailable MALAVI, STEPHANIE Other Unknown Unavailable MANCUSO, AVA Personal Relationship Unknown Lisa vailable MANCUSO, AVA Personal Relationship Unknown Lisa vailable MANCUSO, VAA Personal Relationship Unknown Lisa vailable MANCUSO, AVA Personal Relationship Unknown Lisa vailable MANCUSO, AVA Personal Relationship Unknown Lisa vailable UNK, ALICIA Other Unknown Unavailable MANCUSO, AVA Personal Relationship Unknown Lisa vailable MANCUSO, AVA Personal Relationship Unknown Lisa vailable MANCUSO, AVA Personal Relationship Unknown Lisa vailable MANCUSO, AVA Personal Relationship Unknown Lisa vailable MANCUSO, AVA Personal Relationship Unknown Lisa vailable MANCUSO, AVA Personal Relationship Unknown Lisa vailable MANCUSO, AVA Personal Relationship Unknown Lisa vailable NOVA, DANY Other Unknown Unavailable MANCUSO, AVA Personal Relationship Unknown Lisa vailable MANCUSO, AVA Personal Relationship Unknown Lisa vailable Care Team Providers 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 Name Role Phone Hazel ABREU, René Barclay Primary Care Physician [place] [facility] [id number] Date(s): 04/06/24 - 04/10/[address] [id number] Encounter Diagnosis Hyponatremia(Final) - 04/06/24 Discharge Disposition: A-D/C Home Attending Physician: Glory Patel MD Admitting Physician: Rosendo Smith MD Referring Physician: Not on Staff, Referring MD Encounter Type: Disch IP Allergies, Adverse Reactions, Alerts No Known Allergies Immunizations Given and Recorded Vaccine Date Status Refusal Reason influenza virus vaccine, inactivated 03/30/22 Miguel rded influenza virus vaccine, inactivated 04/12/19 Miguel rded influenza virus vaccine, inactivated 02/14/18 Miguel rded influenza virus vaccine, inactivated 02/24/17 Give n influenza virus vaccine, inactivated 07/04/16 Give n SARS-CoV-2 (COVID-19) mRNA BNT-162b2 vac 03/23/21 Recorded SARS-CoV-2 (COVID-19) mRNA BNT-162b2 vac 06/13/20 Recorded SARS-CoV-2 (COVID-19) mRNA BNT-162b2 vac 05/23/20 Recorded tetanus/diphtheria/pertussis, acel(Tdap) 04/14/16 Given pneumococcal 23-valent vaccine 12/07/14 Given pneumococcal 23-valent vaccine 11/21/09 Given Medications acetaminophen 325 mg oral tablet 650 mg, 2, tablet, By Mouth, Every 6 hours, PRN, Maintenance, as needed for fever >101/pain, 08/08/20 4:47:00 PM EDT, ; Start Date: 08/08/20 Status: Ordered Repeat number: 1 ascorbic acid 1000 mg oral tablet 1 tablet = 1,000 mg, By Mouth, Daily in AM, Maintenance, 03/19/23 12:47:00 PM EST, Tablet, Partial fill upon patient request if the prescription is for a schedule II opioid drug. Start Date: 03/19/23 Status: Ordered Repeat number: 1 cholecalciferol 2000 intl units oral capsule 1 capsule = 2,000 International_Units, By Mouth, Daily in AM, Maintenance, 05/12/21 7:40:00 PM EST, Capsule Start Date: 05/12/21 Status: Ordered Repeat number: 1 Colace sodium 100 mg oral capsule 200 mg, 2, capsule, By Mouth, 2 times a day, Please HOLD if more than 2 bowel movements a day. withplenty of water, Maintenance, 02/15/21 9:26:00 AM EDT, ; Start Date: 02/15/21 Status: Ordered Repeat number: 1 Dulcolax 10 mg rectal suppository 1 supp = 10 mg, Rectally, Daily, at 1600. hold if 2 BMs in one day, Maintenance, 03/19/23 12:54:00 PM EST, Suppository, Partial fill upon patient request if the prescription is for a schedule II opioid drug. Start Date: 03/19/23 Status: Ordered Repeat number: 1 ferrous gluconate 324 mg oral tablet 1 tablet = 324 mg, By Mouth, Daily in AM, 0 Refills, Maintenance, 11/27/21 12:55:00 PM EDT, Tablet, Partial fill upon patient request if the prescription is for a schedule II opioid drug. Start Date: 11/27/21 Status: Ordered Repeat number: 1 Fleet Enema 19 gm-7 gm rectal enema 1 each, Rectally, Once, PRN for constipation, Maintenance, 03/19/23 12:54:00 PM EST, Enema, Partialfill upon patient request if the prescription is for a schedule II opioid drug. Start Date: 03/19/23 Status: Ordered Repeat number: 1 gabapentin 100 mg oral capsule 200 mg, Capsule, By Mouth, 04/09/24 9:00:00 PM EST Start Date: 04/09/24 Stop Date: 04/09/24 Status: Completed Repeat number: 1 gabapentin 100 mg oral capsule 200 mg, 2, capsule, By Mouth, Daily at bedtime, Refills 0, Maintenance, 04/07/24 10:09:00 AM EST, Partial fill upon patient request if the prescription is for a schedule II opioid drug. Start Date: 04/07/24 Status: Ordered Repeat number: 1 lacosamide 150 mg oral tablet 2 tablet = 300 mg, By Mouth, Daily at bedtime, 0 Refills, Maintenance, 05/12/21 6:25:00 PM EST, Tablet, Partial fill upon patient request if the prescription is for a schedule II opioid drug. Start Date: 05/12/21 Status: Ordered Repeat number: 1 lacosamide 150 mg oral tablet 1 tablet = 150 mg, By Mouth, Daily in AM, 0 Refills, Maintenance, 05/12/21 6:25:00 PM EST, Tablet Start Date: 05/12/21 Status: Ordered Repeat number: 1 lacosamide 150 mg oral tablet 0.5 tablet = 75 mg, By Mouth, Every afternoon, 0 Refills, Maintenance, 05/12/21 6:25:00 PM EST, Tablet, Partial fill upon patient request if the prescription is for a schedule II opioid drug. Start Date: 05/12/21 Status: Ordered Repeat number: 1 lactulose 10 gm/15 ml oral syrup 30 mL = 20 Gm, By Mouth, Every 8 hours, PRN as needed for constipation, give if no BM in 2 days, 0 Refills, Maintenance, 09/17/23 9:20:00 AM EDT, Syrup, Partial fill upon patient request if the prescription is for a schedule II opioid drug. Start Date: 09/17/23 Status: Ordered Repeat number: 1 LaMICtal 100 mg oral tablet 100 mg, 1, tablet, By Mouth, Daily at bedtime, take with 200mg tab =300mg evening dose, Refills 0, Maintenance, 08/30/22 3:10:00 PM EDT, Partial fill upon patient request if the prescription is for a schedule II opioid drug. Start Date: 08/30/22 Status: Ordered Repeat number: 1 LaMICtal 200 mg oral tablet 1 tablet = 200 mg, By Mouth, 3 times a day, take with 100mg tab for evening dose =300mg, 0 Refills,Maintenance, 08/30/22 3:11:00 PM EDT, Partial fill upon patient request if the prescription is for aschedule II opioid drug. Start Date: 08/30/22 Status: Ordered Repeat number: 1 levETIRAcetam 750 mg oral tablet 2 tablet = 1,500 mg, By Mouth, 2 times a day, 0 Refills, Maintenance, 09/05/23 1:38:00 PM EDT, Partial fill upon patient request if the prescription is for a schedule II opioid drug. Start Date: 09/05/23 Status: Ordered Repeat number: 1 Linzess 290 mcg oral capsule 1 capsule = 290 mcg, By Mouth, Daily at supper, 4pm, 0 Refills, Maintenance, 8/25/23 3:32:00 AM EDT, Capsule, Partial fill upon patient request if the prescription is for a schedule II opioid drug. Start Date: 12/25/22 Status: Ordered Repeat number: 1 magnesium oxide 400 mg oral tablet 1 tablet = 400 mg, By Mouth, Daily in AM, Maintenance, 04/29/20 10:18:00 AM EST, ; Start Date: 04/29/20 Status: Ordered Repeat number: 1 methenamine hippurate 1 gm oral tablet 1 tablet = 1 Gm, By Mouth, Daily in AM, Maintenance, 03/19/23 12:59:00 PM EST, Partial fill upon patient request if the prescription is for a schedule II opioid drug. Start Date: 03/19/23 Status: Ordered Repeat number: 1 metoclopramide 10 mg oral tablet 1 tablet = 10 mg, By Mouth, 4 times a day, Maintenance, 03/19/23 12:52:00 PM EST, Tablet, Partial fill upon patient request if the prescription is for a schedule II opioid drug. Start Date: 03/19/23 Status: Ordered Repeat number: 1 Milk of Magnesia 8% oral suspension 30 mL = 2.4 Gm, By Mouth, 2 times a day, Maintenance, 03/19/23 12:51:00 PM EST, Suspension, Partialfill upon patient request if the prescription is for a schedule II opioid drug. Start Date: 03/19/23 Status: Ordered Repeat number: 1 omeprazole 20 mg oral enteric coated capsule 1 capsule = 20 mg, By Mouth, Daily in AM, open capsule, Maintenance, 08/08/20 4:52:00 PM EDT, ; Start Date: 08/08/20 Status: Ordered Repeat number: 1 OXcarbazepine 300 mg oral tablet 900 mg, 3, tablet, By Mouth, Daily at bedtime, Refills 0, Maintenance, 11/25/20 3:01:00 PM EDT, ; Start Date: 11/25/20 Status: Ordered Repeat number: 1 OXcarbazepine 300 mg oral tablet 300 mg, 1, tablet, By Mouth, Daily in AM, Refills 0, Maintenance, 09/05/19 3:35:00 PM EDT Start Date: 09/05/19 Status: Ordered Repeat number: 1 OXcarbazepine 600 mg oral tablet 1 tablet = 600 mg, By Mouth, Daily, 12 noon, 0 Refills, Maintenance, 11/25/20 3:01:00 PM EDT, ; Start Date: 11/25/20 Status: Ordered Repeat number: 1 risperiDONE 2 mg oral tablet 2 mg, 1, tablet, By Mouth, 2 times a day, Refills 0, Maintenance, 12/29/22 12:06:00 PM EDT, Partial fill upon patient request if the prescription is for a schedule II opioid drug. Start Date: 12/29/22 Status: Ordered Repeat number: 1 Senna 8.6 mg oral tablet 17.2 mg, 2, tablet, By Mouth, 2 times a day, with plenty of water, Refills 0, Maintenance, 09/15/17 3:56:53 PM EDT, Tablet Start Date: 09/15/17 Status: Ordered Repeat number: 1 simethicone 80 mg oral tablet, chewable 80 mg, 1, tablet, Chew, 3 times a day, Maintenance, 06/13/22 6:10:00 PM EST, Partial fill upon patient request if the prescription is for a schedule II opioid drug. Start Date: 06/13/22 Status: Ordered Repeat number: 1 sodium chloride 1 gm oral tablet 1 tablet = 1 Gm, By Mouth, Daily in AM, Maintenance, 03/19/23 12:56:00 PM EST, Partial fill upon patient request if the prescription is for a schedule II opioid drug. Start Date: 03/19/23 Status: Ordered Repeat number: 1 Valtoco 10 mg Dose nasal spray = 10 mg, Nares, Both, Once, PRN Seizure Activity, Seizures >5mins or 2 or more seizures in 24 hrs., Maintenance, 06/13/22 6:17:00 PM EST, Partial fill upon patient request if the prescription is for a schedule II opioid drug. 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 Confirmed Active GERD (gastroesophageal reflux disease) Confirmed Active GI hemorrhage Confirmed Active History of DVT (deep vein thrombosis) Confirmed Active Ventriculo-peritoneal shunt status Confirmed Active Hydrocephalus Confirmed Active Hyperlipidemia Confirmed Active Hyponatremia Confirmed Active Obese class I Confirmed Active Schizophrenia, paranoid Confirmed Active Hemiparesis, right Confirmed Active Traumatic brain injury Confirmed Active 1Problem added by Discern Expert Results Radiology Reports * Exam Date Time Procedure Performing Provider Status 04/06/24 5:[address] Head/Brain W/O Contrast Abigail Garcia; Auth (Verified) Notes: (CT Head/Brain W/O Contrast) Reason For Exam: Seizure Disorder RESULT: CT Head/Brain W/O Contrast CT Head/Brain W/O Contrast INDICATION: Hx of Present Illness: pt BIBA from [facility], hx TBI, sz. pt non-verbal and non-ambulatory atbaseline. per facility, pt acting altered at baseline and not tracking eyes as usual.; Reason: Seizure Disorder; Clinical Question(s): Hematoma; Order Comment: TECHNIQUE: Noncontrast head CT using axial technique and reconstructed in axial and coronal planes.Iterative reconstruction techniques are used to optimize dose and image quality. COMPARISON: 03/18/2024 FINDINGS: Blunger Machine Operator view findings, lines and tubes: Left posterior approach PIN BALL MACHINE MECHANIC shunt terminates in the left lateral ventricle just superior to the third ventricle, similar to prior. BRAIN AND EXTRA-AXIAL SPACES: Unchanged postsurgical changes of the left hemisphere. Encephalomalacia throughout the left hemisphere with ex vacuo dilatation of the left lateral ventricle, as well as Wallerian degeneration in thebrainstem. Overall ventricular size and configuration unchanged from prior examination. Also similar configuration and size to 12/27/2023. Unchanged encephalomalacia within the right frontal lobe and right temporal lobe. No intracranial hemorrhage. CALVARIUM, SKULL BASE, AND SOFT TISSUES: Left frontoparietal craniotomy changes unchanged. The paranasal sinuses and mastoid air cells are clear. Visualized orbits and globes are intact. IMPRESSION: No acute intracranial pathology. Chronic shunted hydrocephalus and extensive encephalomalacia as described above. WSN: [id number] Ordering Physician: Pelon Hernandez Dictated By: Balke Price MD Dictated Date/Time: 04/06/24 6:05 pm Reviewed By: Blake Price MD Signed By: Blake Price MD Signed Date/Time: 04/06/24 6:05 pm Transcribed By: SANTO Transcribed Date/Time: 04/06/24 6:00 pm * Exam Date Time Procedure Performing Provider Status 04/06/24 11:29 AM Chest Portable Marbella Desai; Antonino (Verified) Notes: (Chest Portable) Reason For Exam: Shortness of Breath RESULT: Chest Portable Examination: Portable chest performed on 04/06/2024. History: Shortness of breath. Findings: A frontal view of the chest is compared to a prior study dated 12/27/2023. The cardiac silhouette is within normal limits for size. The lungs are clear. The osseous structures are unremarkable. IMPRESSION: There is no acute cardiopulmonary disease. WSN: [id number] Ordering Physician: Elif Faye Dictated By: Irene Bernabe MD Dictated Date/Time: 04/06/24 12:24 p Reviewed By: Irene Bernabe MD Signed By: Irene Bernabe MD Signed Date/Time: 04/06/24 12:24 pm Transcribed By: SANTO Transcribed Date/Time: 04/06/24 12:23 pm Vital Signs Most recent to oldest [Reference Range]: 1 2 3 Weight 96.8 kg (04/10/24 5:29 AM) 86 kg (04/09/24 5:54 AM) 85.1 kg (04/08/24 5:04 AM) Oxygen Saturation [94-100 %] 99 % (04/10/24 7:00 AM) 98 % (04/10/24:29 AM) 98 % (04/09/24 10:40 PM) Pulse Rate [55-90 bpm] 77 bpm (04/10/24 7:00 AM) 71 bpm (04/10/24 5:29 AM) 79 bpm (04/09/24 10:40 PM) Blood Pressure [90-138/55-84 mm Hg] 152/90mm Hg *H* (04/10/24 7:00 AM) 115/76mm Hg (04/10/24 5:29 AM) 144/86mm Hg *H* (04/09/24 10:40 PM) Respiratory Rate [16-30 br/min] 19 br/min (04/10/24 7:00 AM) 18 br/min (04/10/24 5:29 AM) 15 br/min *L* (04/09/24 11:34 PM) Temperature [96.8-100.4 DegF] 98.4 DegF (04/10/24 7:00 AM) 97.9 DegF (04/10/24 5:29 AM) 98.2 DegF (04/09/24 10:40 PM) Mode of Delivery (Oxygen) Room air (04/10/24 7:00 AM) Room air (04/10/24 5:29 AM) Room air (04/09/24 10:40 PM) Blood pressure sites Leg, right (04/09/24 10:00 PM) Leg, right (04/09/24 4:20 PM) Leg, right (04/09/24 10:32 AM) Temperature Route Oral (04/10/24 7:00 AM) Axillary (04/10/24 5:29 AM) Axillary (04/09/24 10:40 PM) Dry Weight 86 kg (04/09/24 5:54 AM) 85.1 kg (04/08/24 5:04 AM) Weight Obtained Via Bed scale (04/09/24 5:54 AM) Bed scale (04/08/24 5:04 AM) Dry Weight Obtained Via Bed scale (04/09/24 5:54 AM) Bed scale (04/08/24 5:04 AM) Social History Social History Type Response Smoking Status Never (less than 100 in lifetime) entered on: 07/04/21 Sex Sex Representation Male (finding) History and physical note * Alexandro ABREU, Jorden Tony: PERFORM Event Display: History and Physical Hospital Authored Date: Patient: ??AVA MANCUSO ? Age:??63 Years?Sex:??Male?:??1960?? Chief Complaint/Reason for Consultation per facility staff, pt noted to be altered, not tracking w/ his eyes. hx sz, unknown presentation. pt non-verbal and non-ambulatory at baseline. History of Present Illness This is a 62-year-old man who has significant history of traumatic brain injury (1984) status post left craniotomy and PIN BALL MACHINE MECHANIC shunt with residual right sided weakness, epilepsy, paranoid schizophrenia, GERD, chronic constipation, hyponatremia who is brought to the emergency room from a detention with altered mental status and decreased responsiveness.?? As per ER note, staff at the detention noticed him to be less alert and interactive as usual.?? Apparently, patient is able to localize and make basic verbal expressions. At the moment, he responds and follows minimal commands while talking to him in Indonesian and Spanishbut unable to verbalize any sounds or words.?? I tried to reach out to detention via telephone without success. As per ER note, there have been some patients at the detention with some diarrheal illness.?? There has been no recent changes concerning medication regimen and detention staff was concerned about possible seizure. In the emergency room, he underwent checks x-ray followed by CT of the brain. Checks x-ray did not show any acute cardiopulmonary process. CT of the brain with no acute intracranial pathology.?? Chronic shunted hydrocephalus and extensiveencephalomalacia was noticed. In the emergency room, he was started empirically on Rocephin and received 1 g IV x 1. Lab work significant for sodium of 130. Influenza A & B as well as COVID-19 came back negative.?? Urinalysis unremarkable. Review of Systems Unable to obtain Objective Measurements?? Weight: 85 kg (04/06/24) ?? Vital Signs?? Temperature: 99.6 DegF (04/06/24 19:00:00) Temperature Route: Oral (04/06/24 19:00:00) Pulse Rate: 80 bpm (04/06/24:00:00) Respiratory Rate:??13 br/min??Low (04/06/24:00:00) Systolic Blood Pressure: 127 mm Hg (04/06/24 19:00:00) Diastolic Blood Pressure: 83 mm Hg (04/06/24 19:00:00) Pulse Pressure: 44 mm Hg (04/06/24 19:00:00) Oxygen Saturation: 97 % (04/06/24 19:00:00) Mode of Delivery (Oxygen): Room air (04/06/24 19:00:00) Early Warning Score: 0 (04/06/24 22:04:42) ? Physical Exam Constitutional: Alert, in no distress.?? Nonverbal Mental Status: Nonverbal.?? Follows very simple commands. Head: Normocephalic. Eyes: Pupils are equal, round and reactive to light. Extraocular muscles intact. Ear, Nose and Throat: Oropharynx clear, mucous membranes moist. Ears and nose without masses, lesions or deformities. Trachea midline. Neck: Supple, Full range of motion. Respiratory: Clear to auscultation. No wheezing, rales or rhonchi. Cardiovascular: S1 S2 regular. No murmurs, rubs or gallops. Gastrointestinal: Obese, abdomen soft, non-tender, non-distended. Normal bowel sounds. No pulsatilemass. No hepatosplenomegaly. Genitourinary: No costovertebral angle tenderness. Neurologic:??Uncooperative with neurological exam.?? Right arm??contraction??with spasticity. Skin: No rashes or lesions. No petechiae or purpura.?No lower extremity edema. Musculoskeletal: No cyanosis or clubbing. No gross deformities. Normal range of motion. Heme/Lymphatics/Immun: Palpation of neck reveals no swelling or tenderness of neck nodes. Palpationof groin reveals no swelling or tenderness of groin nodes. Psychiatric: Normal mood and affect Assessment/Plan Diagnoses Acute encephalopathy ??(G93.40) Anemia ??(D64.9) Constipation ??(K59.00) GERD (gastroesophageal reflux disease) ??(K21.9) Hyponatremia ??(E87.1) Schizophrenia ??(F20.9) Seizure disorder ??(G40.909) ?? Assessment:??This is a 63-year-old man who is brought from??detention due to??worsening altered mental status.??Patient unable to provide history.??[facility]??unable to answer the telephone at thishour. Patient without clear evidence of active infection.??Most likely??due to recurrent seizures/postictal. ?? Seizure disorder (G40.909):??- ?? Acute encephalopathy (G93.40):??He will be admitted to regular room as inpatient. Patient without significant??source of infection at the moment.??Holding antibiotics. Continue to monitor mental status closely. Seizure precautions. Ativan??2??mg IV??as needed for seizure.??[facility]??Check an EEG Continue??Lacosamide, lamotrigine Keppra and oxcarbazepine ?? Hyponatremia (E87.1):??Patient with chronic hyponatremia most likely in the setting of chronic use of Keppra and risperidone. Continue to monitor.??Gentle hydration with??normal saline at 75 mL/h.??Check urine sodium and urine osmole. ?? Anemia (D64.9):??Stable.??Continue to monitor. ?? Constipation (K59.00):??Continue aggressive bowel regimen daily. ?? GERD (gastroesophageal reflux disease) (K21.9):??Continue??PPI and metoclopramide daily. ?? Schizophrenia (F20.9):??Continue home medication ?? VTE Prophylaxis:??Bilateral compression boots ?VTE Prophylaxis Assessment:??VTE Prophylaxis Ordered ?? Discharge Planning:? Code Status:??Presumed to be full code. ?Order Code Status:??Code Status Ordered ? I spent a total of 75 minutes today reviewing the chart/medical records, speaking with the patient,formulating and discussing the treatment plan, and documenting the findings and encounter. ?? Histories Allergies Allergies ?(Active and Proposed Allergies Only) NKA? (Severity: Unknown severity, Onset: Unknown) ? 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 Past Surgical History Colonoscopy: 01/20/17 Esophagogastroduodenoscopy: 01/20/17 Esophagogastroduodenoscopy: 12/25/14 Lysis of adhesions Exploratory laparotomy craniotomy ? Social History Alcohol Details:??Use: Never. Substance Abuse Details:??Use: Never. Tobacco Details:??Use: Never (less than 100 in lifetime). Details:??Never smoker Electronic Cigarette/Vaping Details:??Electronic Cigarette Use: Never. ? Family History No Family History documented. ? Medications Home Medications Acetaminophen (acetaminophen 325 mg oral tablet)?650?Milligram?2?tablet?By Mouth?Every 6 hours?as needed?as needed for fever/pain?325?1?650?2?not to exceed 4000 mg/day?Mild Pain/Fever?as needed for fever/pain Ascorbic Acid (ascorbic acid 1000 mg oral tablet)?1?tab(s)?1,000?Milligram?By Mouth?Daily?Daily in AM Bisacodyl (Dulcolax 10 mg rectal suppository)?1?suppository(ies)?10?Milligram?Rectall y?Daily?as needed?as needed for constipation?at 1600. hold if 2 BMs in one day Cholecalciferol (cholecalciferol 2000 intl units oral capsule)?1?capsule?2,000?International Unit?By Mouth?Daily?Daily in AM Diazepam (Valtoco 10 mg Dose nasal spray)?10?Milligram?Once?as needed?as needed?Nares, Both?Seizure Activity?Seizures >5mins Docusate (Colace sodium 100 mg oral capsule)?200?Milligram?2?capsule?By Mouth?Daily?Please HOLD if more than 2 bowel movements a day. with plenty of water Ferrous Gluconate (ferrous gluconate 324 mg oral tablet)?1?tab(s)?324?Milligram?By Mouth?Daily?Daily in AM Guaifenesin (Mucinex 600 mg oral tablet, extended release)?1?tab(s)?600?Milligram?ByMouth?Every 12 hours?as needed?Congestion/Cough Lacosamide (lacosamide 150 mg oral tablet)?2?tab(s)?300?Milligram?By Mouth?Daily at bedtime Lacosamide (lacosamide 150 mg oral tablet)?1?tab(s)?150?Milligram?By Mouth?Daily?Daily in AM Lacosamide (lacosamide 150 mg oral tablet)?0.5?tab(s)?75?Milligram?By Mouth?Dailybefore lunch?Every afternoon Lactulose (lactulose 10 gm/15 ml oral syrup)?30?Milliliter?20?gram?By Mouth?Daily?Every 8 hours?as needed?as needed for constipation?give if no BM in 2 days Lamotrigine (LaMICtal 100 mg oral tablet)?300?Milligram?3?tablet?By Mouth?Daily at bedtime?100?1?Resume this dose on 03/27 Lamotrigine (LaMICtal 200 mg oral tablet)?1?tab(s)?200?Milligram?By Mouth?2 timesa day?admin 200 mg with 100 mg at bedtime dose only levETIRAcetam (levETIRAcetam 750 mg oral tablet)?2?tab(s)?1,500?Milligram?By Mouth?2 times a day linaclotide (Linzess 290 mcg oral capsule)?1?capsule?290?Microgram?By Mouth?Dailyat supper?4pm Magnesium Oxide (magnesium oxide 400 mg oral tablet)?1?tab(s)?400?Milligram?By Mouth?Daily Methenamine (methenamine hippurate 1 gm oral tablet)?1?tab(s)?1?gram?By Mouth?Daily in AM Metoclopramide (metoclopramide 10 mg oral tablet)?1?tab(s)?10?Milligram?By Mouth?4 times a day Milk of Magnesia (Milk of Magnesia 8% oral suspension)?30?Milliliter?2.4?gram?By Mouth?2 times a day Nitrofurantoin (Macrobid)?100?Milligram?By Mouth?Every 12 hours?for 7?Days Omeprazole (omeprazole 20 mg oral enteric coated capsule)?1?capsule?20?Milligram?By Mouth?Daily in AM?open capsule Oxcarbazepine (OXcarbazepine 300 mg oral tablet)?300?Milligram?1?tablet?By Mouth?Daily in AM?600mg every afternoon and 900mg at bedtime Oxcarbazepine (OXcarbazepine 600 mg oral tablet)?1?tab(s)?600?Milligram?By Mouth?Daily?in afternoon?2?1,200?12 noon?1?600 Oxcarbazepine (OXcarbazepine 300 mg oral tablet)?900?Milligram?3?tablet?By Mouth?Daily at bedtime Polyethylene Glycol 3350 (MiraLax oral powder for reconstitution)?17?gram?By Mouth?Daily?dissolve in water before taking?2 times a day Risperidone (risperiDONE 2 mg oral tablet)?2?Milligram?1?tablet?By Mouth?2 times a day Senna (Senna 8.6 mg oral tablet)?17.2?Milligram?2?tab(s)?By Mouth?2 times a day?as needed?for constipation?Please HOLD if more than 2 bowel movements a day. with plenty of water Simethicone (simethicone 80 mg oral tablet, chewable)?80?Milligram?1?tablet?Chew?3 times a day Sodium Biphosphate-Sodium Phosphate (Fleet Enema 19 gm-7 gm rectal enema)?1?Each?Rectally?Once?as needed?for constipation Sodium Chloride (sodium chloride 1 gm oral tablet)?1?tab(s)?1?gram?By Mouth?Dailyin AM ? Results Recent Labs BLOOD COUNT & DIFF WBC 6.2 k/mm3 ()?? 04/06/2024 11:17 RBC 4.33 m/mm3 (Low)?? 04/06/2024 11:17 Hgb 12.9 Gm/dL (Low)?? 04/06/2024 11:17 Hct 37.4 % (Low)?? 04/06/2024 11:17 MCV 86.4 femtoliters ()?? 04/06/2024 11:17 MCH 29.8 pg ()?? 04/06/2024 11:17 MCHC 34.5 Gm/dL ()?? 04/06/2024 11:17 Platelet Count 275 k/mm3 ()?? 04/06/2024 11:17 RDW-SD 37.3 femtoliters ()?? 04/06/2024 11:17 MPV 8.3 femtoliters (Low)?? 04/06/2024 11:17 Nucleated RBC (Automated) 0.0 #/100 WBC'S ()?? 04/06/2024 11:17 Abs. NRBC 0.0 k/mm3 ()?? 04/06/2024 11:17 Abs. Neut 4.4 k/mm3 ()?? 04/06/2024 11:17 Abs. Lymph 1.1 k/mm3 ()?? 04/06/2024 11:17 Abs. [place] 0.6 k/mm3 ()?? 04/06/2024 11:17 Abs. Eo 0.0 k/mm3 ()?? 04/06/2024 11:17 Abs. Baso 0.0 k/mm3 ()?? 04/06/2024 11:17 Neut % 71.9 % ()?? 04/06/2024 11:17 Lymph % 18.0 % ()?? 04/06/2024 11:17 [place] % 9.1 % ()?? 04/06/2024 11:17 Eos % 0.5 % ()?? 04/06/2024 11:17 Baso % 0.2 % ()?? 04/06/2024 11:17 Imm Gran 0.3 % ()?? 04/06/2024 11:17 Abs. Imm Gran 0.0 k/mm3 ()?? 04/06/2024 11:17 ?? CHEM GENERAL Sodium 130 mmol/L (Low)?? 04/06/2024 11:13 Potassium 3.9 mmol/L ()?? 04/06/2024 11:13 Chloride 95 mmol/L (Low)?? 04/06/2024 11:13 Bicarbonate Level 23 mmol/L ()?? 04/06/2024 11:13 Anion Gap 12 ()?? 04/06/2024 11:13 Glucose Level 98 mg/dL ()?? 04/06/2024 11:13 BUN 6 mg/dL (Low)?? 04/06/2024 11:13 Creatinine-Blood 0.48 mg/dL (Low)?? 04/06/2024 11:13 Estimated GFR Creatinine 116 ML/MIN/1.73 M2 ()?? 04/06/2024 11:13 Calcium 9.2 mg/dL ()?? 04/06/2024 11:13 Protein, Total 6.8 Gm/dL ()?? 04/06/2024 11:13 Albumin 4.2 Gm/dL ()?? 04/06/2024 11:13 AG Ratio 1.6 ()?? 04/06/2024 11:13 Alkaline Phosphatase 139 units/L (High)?? 04/06/2024 11:13 AST (SGOT) 14 units/L ()?? 04/06/2024 11:13 ALT (SGPT) 20 units/L ()?? 04/06/2024 11:13 Bilirubin, Total 0.3 mg/dL ()?? 04/06/2024 11:13 Lactate 1.4 mmol/L ()?? 04/06/2024 11:13 ?? UA/URINALYSIS Appear/Color, Urine COLORLESS ()?? 04/06/2024 12:01 Specific [place], Urine 1.008 ()?? 04/06/2024 12:01 pH, Urine 7.0 ()?? 04/06/2024 12:01 Albumin, Urine NEGATIVE ()?? 04/06/2024 12:01 Glucose, Urine NEGATIVE ()?? 04/06/2024 12:01 Ketones, Urine NEGATIVE ()?? 04/06/2024 12:01 Bilirubin, Urine NEGATIVE ()?? 04/06/2024 12:01 Hemoglobin, Urine NEGATIVE ()?? 04/06/2024 12:01 Nitrite, Urine NEGATIVE ()?? 04/06/2024 12:01 Leukocyte, Urine NEGATIVE ()?? 04/06/2024 12:01 Urobilinogen NORMAL mg/dL ()?? 04/06/2024 12:01 WBC's, Urine <1 /HPF ()?? 04/06/2024 12:01 RBC's, Urine 1 /HPF ()?? 04/06/2024 12:01 ?? VIROLOGY Influenza A PCR NEGATIVE ()?? 04/06/2024 10:37 Influenza B PCR NEGATIVE ()?? 04/06/2024 10:37 RSV PCR NEGATIVE ()?? 04/06/2024 10:37 COVID-19 PCR Specimen Source NASAL ()?? 04/06/2024 10:37 COVID-19 PCR Result NEGATIVE ()?? 04/06/2024 10:37 ? Image ?CT Head/Brain W/O Contrast??04/06/2024 17:54 by Nazia Garcia ?IMPRESSION: No acute intracranial pathology. Chronic shunted hydrocephalus and extensive encephalomalacia as described above. ?? EKG study * Event Display: ECG 12-Lead Authored Date: Please click on pdf link to open report * Event Display: ECG 12-Lead Authored Date: Ventricular Rate: 84 BPM Atrial Rate: 84 BPM P-R Interval: 146 ms QRS Duration: 90 ms Q-T Interval: 380 ms QTC Calculation(Bazett): 449 ms P [place]: 43 degrees R [place]: 7 degrees T [place]: 0 degrees Normal sinus rhythm Nonspecific T wave abnormality Abnormal ECG When compared with ECG of 22-Apr-2023 14:39, Nonspecific T wave abnormality now evident in Inferior leads Nonspecific T wave abnormality now evident in Anterior leads Confirmed by Chaitanya Senior ([id number]) on 04/07/2024 3:20:11 PM Idalia: Chaitanya Senior [facility] Progress note * Mila Alicea RN: PERFORM, SIGN, VERIFY Event Display: Progress [facility] Authored Date: Patient: AVA MANCUSO Age: 63 years Sex: Male : 1960 Associated Diagnoses: None Author: Mila Alicea RN Findings Evaluation Patient alert and oriented to to self this AM, and more oriented later in the day, recognizing where he is. Patient tolerated all medications today. Patient wanted to speak to guardian on the phone. Phone call made and successful. Update given to Mr. Felix. Patient has clear lung sounds, positive abdominal sounds and positive pulses. Patient safety remained Bed locked in lowest position and bed alarm on. Call syed within reach of patient.. 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 Age:??63 Years?Sex:??Male?:??1960?? Subjective KYLEE. Patient seen and evaluated at bedside. Is nonverbal at baseline but was tracking with eyes and pointing at TV with left hand. Per chart, 1 BM in past 24 hrs. Review of Systems ROS is negative except for what has been written in the subjective.?? Objective Vital Signs?? Temperature: 97.9 DegF (04/09/24 10:32:00) Temperature Route: Axillary (04/09/24 10:32:00) Pulse Rate: 77 bpm (04/09/24 10:32:00) Respiratory Rate: 16 br/min (04/09/24 10:32:00) Systolic Blood Pressure:??146 mm Hg??High (04/09/24 10:32:00) Diastolic Blood Pressure: 76 mm Hg (04/09/24 10:32:00) Blood pressure sites: Leg, right (04/09/24 10:32:00) Mean Arterial Pressure: 99 mm Hg (04/09/24 10:32:00) Pulse Pressure: 70 mm Hg (04/09/24 10:32:00) Oxygen Saturation: 98 % (04/09/24 10:32:00) Mode of Delivery (Oxygen): Room air (04/09/24 10:32:00) Early Warning Score: 3 (04/09/24 10:32:58) ? Physical Exam Constitutional: Alert, on room air, in no acute distress. HEENT:??Well healed left craniotomy scar. Pupils do not respond to light.??Left eye somewhat exotropic. Respiratory: Comfortable work of breathing with normal rate. Lungs essentially CTA. Cardiovascular: S1 S2 regular. No murmurs, rubs or gallops. No edema. Gastrointestinal: Abdomen soft, nontender, and nondistended. +BS. Neurologic: Tracking gaze.??Contractures with spasticity in RUE, stiff??but mobile??to movement forcardiac auscultation. Skin: No rashes or lesions. No petechiae or purpura. Extremities warm and well perfused. Musculoskeletal: No cyanosis or clubbing.??R thenar atrophy. Psychiatric: Nonverbal. Affect calm. Results Recent Labs BLOOD COUNT & DIFF WBC 6.0 k/mm3 ()?? 04/08/2024 02:06 RBC 3.92 m/mm3 (Low)?? 04/08/2024 02:06 Hgb 11.6 Gm/dL (Low)?? 04/08/2024 02:06 Hct 34.3 % (Low)?? 04/08/2024 02:06 MCV 87.5 femtoliters ()?? 04/08/2024 02:06 MCH 29.6 pg ()?? 04/08/2024 02:06 MCHC 33.8 Gm/dL ()?? 04/08/2024 02:06 Platelet Count 227 k/mm3 ()?? 04/08/2024 02:06 RDW-SD 39.1 femtoliters ()?? 04/08/2024 02:06 MPV 8.5 femtoliters (Low)?? 04/08/2024 02:06 Nucleated RBC (Automated) 0.0 #/100 WBC'S ()?? 04/08/2024 02:06 Abs. NRBC 0.0 k/mm3 ()?? 04/08/2024 02:06 ?? CHEM GENERAL Sodium 134 mmol/L ()?? 04/08/2024 02:07 Potassium 3.7 mmol/L ()?? 04/08/2024 02:07 Chloride 100 mmol/L ()?? 04/08/2024 02:07 Bicarbonate Level 23 mmol/L ()?? 04/08/2024 02:07 Anion Gap 11 ()?? 04/08/2024 02:07 Glucose Level 89 mg/dL ()?? 04/08/2024 02:07 BUN 9 mg/dL ()?? 04/08/2024 02:07 Creatinine-Blood 0.53 mg/dL (Low)?? 04/08/2024 02:07 Estimated GFR Creatinine 113 ML/MIN/1.73 M2 ()?? 04/08/2024 02:07 Calcium 8.9 mg/dL ()?? 04/08/2024 02:07 ? Assessment/Plan 63-year-old man with history of TBI s/p L craniotomy (1984) resulting in epilepsy on 4 antiepileptic drugs and chronic hyponatremia, brought in from??detention night of 04/06??due to??worsening altered mental status.??Patient without clear evidence of active infection.??Most likely??due to recurrent seizures/postictal. ? Acute encephalopathy (G93.40):?? Seizure disorder (G40.909) Last presented 03/18 for same without clear seizure etiology. Patient unable to provide history.??[facility]??unable to answer the telephone??at hour of??presentation. Group facility staff state patient baseline is largely nonverbal, some words in Indonesian/Macedonian, tracks gaze. On previous admissionand last night they were concerned for ?absence seizure as patient had stopped tracking gaze. Priorh/o tonic clonic seizures. Will call for additional collateral history. Patient's mother was on thephone but is not closely familiar with patient's seizure history. Seizure trigger unclear. Followed by [facility] (Dr. Sales). No medication changes since August per chart review. Med rec underway by Pharmacy today. In ED, WBCs 6.2, Na+ 130, CXR and Head CT baseline, negative COVID/flu/RSV, UA normal on chronic Reina, 2 blood cultures negative as of today.??Given dose of??rocephin in ED, now??holding antibiotics. Noted to be pocketing meds last night. EEG with left sided slowing, no epileptiform activity ST evaluated and cleared for pureed diets and crushed meds. ?? Plan: - Seizure precautions - Ativan??2??mg IV??as needed for seizure - Continue lacosamide, lamotrigine, Keppra, and oxcarbazepine (PO meds crushed in applesauce) ? Hyponatremia (E87.1) - improved Patient with chronic hyponatremia most likely in the setting of chronic use of Keppra and risperidone. Euvolemic on exam. Asymptomatic. 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 ? Chronic/Stable Conditions?? Anemia (D64.9):??Stable.??Continue to monitor. Constipation (K59.00):??Continue aggressive bowel regimen daily. GERD (gastroesophageal reflux disease) (K21.9):??Continue??PPI and metoclopramide daily. Schizophrenia (F20.9):??Continue home medication risperidone. ? Quality Measures Code:??Presumed to be full code. DVT prophylaxis:??Bilateral compression boots Diet:??Purees/thin/ meds can be crushed Dispo planning: To detention ? Patient was seen and discussed with attending physician ?? Yesi Urban Internal Medicine Resident, PGY-1 Pager #[phone] or tigertext ?Attending Attestation (Tiffanie Dennis MD):??I have seen and evaluated this patient. ??I have discussed the case and its management with the resident and agree with the findings and plan as documented in the resident???s note. ? * JayuyaJorge [place]os: MODIFY, PERFORM Event Display: Progress Note Hospital Authored Date: Patient: ??AVA MANCUSO ? Age:??63 Years?Sex:??Male?:??1960?? Subjective interim hx ?? Review of Systems Allergies Allergies ?(Active and Proposed Allergies Only) NKA? (Severity: Unknown severity, Onset: Unknown) ? Objective Vital Signs?? Temperature: 97.9 DegF (04/09/24 05:54:00) Temperature Route: Oral (04/09/24 05:54:00) Pulse Rate: 77 bpm (04/09/24 05:54:00) Respiratory Rate:??48 br/min??High (04/09/24 05:54:00) Systolic Blood Pressure: 132 mm Hg (04/09/24 05:54:00) Diastolic Blood Pressure:??88 mm Hg??High (04/09/24 05:54:00) Blood pressure sites: Arm, left (04/09/24 05:54:00) Mean Arterial Pressure: 103 mm Hg (04/09/24 05:54:00) Pulse Pressure: 44 mm Hg (04/09/24 05:54:00) Oxygen Saturation: 98 % (04/09/24 05:54:00) Mode of Delivery (Oxygen): Room air (04/09/24 05:54:00) Early Warning Score: 6 (04/09/24 05:55:03) ? Physical Exam NEURO:?? awake and alert briefly tracking Cranial Nerves:?? Pupils: perrl, left eye is more opaque like Visual:??btt b/l Extra ocular movements: briefly tracks to right and left Facial: R.FD Hearing: intact bilaterally to finger rub Speech: nonverbal for me no commands Tongue: Protrudes Midline Motor Exam: Strength:??R. arm contracted/ increased tone, R. LE increased tone, LUE and LLE moving anti-gravity Sensory: responding to LT throughout _ Inpatient Medications Medications (29) Active SCHEDULED: (19) Ascorbic Acid 250 mg Tablet (ascorbic acid 250 mg oral tablet) ??1,000 mg, By Mouth, Daily in AM Bisacodyl 10 mg Suppository (Dulcolax Supp) ??10 mg 1 supp, Rectally, Daily Ferrous Sulfate 325 mg EC Tablet (ferrous sulfate 325 mg oral enteric coated tablet) ??325 mg, By Mouth, Daily Gabapentin 100 mg Capsule (gabapentin 100 mg oral capsule) ??200 mg, By Mouth, Daily at bedtime Lacosamide 100 mg Tablet (Lacosamide Tablet) ??300 mg, By Mouth, Daily at bedtime Lacosamide 50 mg Tablet (Lacosamide Tablet) ??75 mg, By Mouth, Daily at supper Lacosamide 50 mg Tablet (Lacosamide Tablet) ??150 mg, By Mouth, Daily in AM LamoTRIGINE 100 mg Tablet (LaMICtal 100 mg oral tablet) ??300 mg, By Mouth, 3 times a day Levetiracetam 100mg/ml IVPB (levETIRAcetam Inj) ??1,500 mg, IV Push Slowly, Every 12 hours Magnesium Oxide 400 mg Tablet (magnesium oxide 400 mg oral tablet) ??400 mg, By Mouth, Daily in AM Metoclopramide 10 mg Tablet (metoclopramide 10 mg oral tablet) ??10 mg, By Mouth, 4 times a day NaCl 0.9% Flush 3ml (NaCL 0.9% Flush) ??3 mL, IV Push, Every 8 hours Oxcarbazepine 300 mg Tablet (OXcarbazepine 300 mg oral tablet) ??900 mg, By Mouth, Daily at bedtime Oxcarbazepine 300 mg Tablet (OXcarbazepine 300 mg oral tablet) ??300 mg, By Mouth, Daily in AM Oxcarbazepine 300 mg Tablet (OXcarbazepine 300 mg oral tablet) ??600 mg, By Mouth, Daily Pantoprazole 20 mg EC Tablet (pantoprazole 20 mg oral delayed release tablet) ??20 mg, By Mouth, Daily Risperidone 1 mg Tablet (risperiDONE 1 mg oral tablet) ??2 mg, By Mouth, 2 times a day Sodium Chloride 1 Gm Tablet (Sodium Chloride 1000 mg oral tablet) ??1 Gm, By Mouth, Daily in AM Vitamin D 1000 IU Tablet (cholecalciferol 1000 intl units oral tablet) ??2,000 units, By Mouth, Daily in AM CONTINUOUS: (0) PRN: (10) Acetaminophen 325 mg Tablet (Acetaminophen Tablet) ??650 mg, By Mouth, Every 4 hours Dextromethorphan-Guaifenesin 20 mg-200 mg/10 mL Liqu UD (Robitussin DM Liquid) ??10 mL, By Mouth, Every 4 hours Docusate Sodium 100 mg Capsule (Docusate Sodium Capsule) ??100 mg 1 capsule, By Mouth, 2 times a day Lactulose 20 Gm/30mL Syrup (lactulose 10 gm/15 ml oral syrup) ??20 Gm 30 mL, By Mouth, Every 8 hours Lorazepam 2 mg Inj Syringe (Ativan Inj) ??2 mg, IV Push Slowly, Once Melatonin 3 mg Tablet (Melatonin Tablet) ??3 mg, By Mouth, Daily at bedtime NaCl 0.9% Flush 3ml (NaCL 0.9% Flush) ??3 mL, IV Push, Every 8 hours Polyethylene Glycol 17 Gm Powder (MiraLax Powder) ??17 Gm 1 pack/packet, By Mouth, Daily Senna Tablet ??8.6 mg 1 tablet, By Mouth, 2 times a day Simethicone 80 mg Chewable Tablet (Simethicone Tablet) ??80 mg, Chew, 3 times a day ? Results Recent Labs BLOOD COUNT & DIFF WBC 6.0 k/mm3 ()?? 04/08/2024 02:06 RBC 3.92 m/mm3 (Low)?? 04/08/2024 02:06 Hgb 11.6 Gm/dL (Low)?? 04/08/2024 02:06 Hct 34.3 % (Low)?? 04/08/2024 02:06 MCV 87.5 femtoliters ()?? 04/08/2024 02:06 MCH 29.6 pg ()?? 04/08/2024 02:06 MCHC 33.8 Gm/dL ()?? 04/08/2024 02:06 Platelet Count 227 k/mm3 ()?? 04/08/2024 02:06 RDW-SD 39.1 femtoliters ()?? 04/08/2024 02:06 MPV 8.5 femtoliters (Low)?? 04/08/2024 02:06 Nucleated RBC (Automated) 0.0 #/100 WBC'S ()?? 04/08/2024 02:06 Abs. NRBC 0.0 k/mm3 ()?? 04/08/2024 02:06 ?? CHEM GENERAL Sodium 134 mmol/L ()?? 04/08/2024 02:07 Potassium 3.7 mmol/L ()?? 04/08/2024 02:07 Chloride 100 mmol/L ()?? 04/08/2024 02:07 Bicarbonate Level 23 mmol/L ()?? 04/08/2024 02:07 Anion Gap 11 ()?? 04/08/2024 02:07 Glucose Level 89 mg/dL ()?? 04/08/2024 02:07 BUN 9 mg/dL ()?? 04/08/2024 02:07 Creatinine-Blood 0.53 mg/dL (Low)?? 04/08/2024 02:07 Estimated GFR Creatinine 113 ML/MIN/1.73 M2 ()?? 04/08/2024 02:07 Calcium 8.9 mg/dL ()?? 04/08/2024 02:07 ?R,EEG. 04/07/2024 ?? IMPRESSION:??This is an abnormal EEG due to the presence of focal slowing seen over the left??hemisphere, maximal left temporal. Mild generalized slowing of the background is also present. The??findings were??suggest the presence of a focal lesion or disturbance of cerebral function involving the left??hemisphere, maximal left temporal that is superimposed upon a more diffuse disturbance of cerebral??function. No epileptiform activity is present.?? Signed by: Edgard Hickey MD?? Date:??04/07/2024? (04/06/2024 17:[address] Head/Brain W/O Contrast) ?? IMPRESSION: ?? No acute intracranial pathology. ?? Chronic shunted hydrocephalus and extensive encephalomalacia as described above. ?? WSN: [id number] ?? 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 No witnessed seizures. No signs of infection. R. EEG from today; left sided slowing, no epiletiformactivity. At present c/w home AEDs. FU on AED levels, track lytes, NA 130 on admit, repeat 135; unlikely to have provoked a seizure c/w Seizure precautions. ?? dw Dr. Hickey Will??sign off, discussed with team?? [1]??Neurology Consult Note; Carolyne Davis NP 04/07/2024 12:22 EST * Edelmira ABREU, Edgard Elena: PERFORM Event Display: Progress Note Hospital Authored Date: I personally reviewed the case and agree with the findings and plan as noted below. Consult note * Carolyne Davis NP: PERFORM Event Display: Consultation Note Authored Date: Patient: ??AVA MANCUSO ? Age:??63 Years?Sex:??Male?:??1960?? Chief Complaint/Reason for Consult per facility staff, pt noted to be altered, not tracking w/ his eyes. hx sz, unknown presentation. pt non-verbal and non-ambulatory at baseline. CC: AMS, decreased responsiveness. History of Present Illness Mr. 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 seizure. Patient is not able to provide history. He is awake and alert this am. He has been afebrile, no signs of infection. Normal lactate. Blood Cx's negative and UA negative. No witnessed seizure activity. Review of Systems unobtainable from patient Physical Exam Vitals & Measurements T:??98.6?F?? HR:??73??(Peripheral)?? RR:??13?? BP:??138/95?? SpO2:??97%?? WT:??85??kg? GENERAL APPERANCE: ??stated age HEENT:NC. NECK: supple LUNGS: ??Normal I:E HEART: RRR ABD: soft, ND, NT. EXT: No clubbing, no edema SKIN: no obvious rashes NEURO:?? awake and alert briefly tracking Cranial Nerves:?? Pupils: perrl, left eye is more opaque like Visual:??btt b/l Extra ocular movements: briefly tracks to right and left Facial: R.FD Hearing: intact bilaterally to finger rub Speech: veyr slow pressure speech; only says his name Tongue: Protrudes Midline Motor Exam: Strength:??R. arm contracted/ increased tone, R. LE increased tone, LUE and LLE moving anti-gravity Sensory: responding to LT throughout ?? R,EEG. 04/07/2024 ?? IMPRESSION:??This is an abnormal EEG due to the presence of focal slowing seen over the left??hemisphere, maximal left temporal. Mild generalized slowing of the background is also present. The??findings were??suggest the presence of a focal lesion or disturbance of cerebral function involving the left??hemisphere, maximal left temporal that is superimposed upon a more diffuse disturbance of cerebral??function. No epileptiform activity is present.?? Signed by: Edgard Hickey MD?? Date:??04/07/2024? (04/06/2024 17:[address] Head/Brain W/O Contrast) ?? IMPRESSION: ?? No acute intracranial pathology. ?? Chronic shunted hydrocephalus and extensive encephalomalacia as described above. ?? WSN: [id number] ?? 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 No witnessed seizures. No signs of infection. R. EEG from today; left sided slowing, no epiletiformactivity. At present c/w home AEDs. FU on AED levels, track lytes, NA 130 on admit, repeat 135; unlikely to have provoked a seizure c/w Seizure precautions. ?? dw Dr. Hickey Will continue to follow Please call for any questions. Problem List/Past Medical History Ongoing Anemia Colitis Constipation COVID-19 Decubitus ulcer of coccygeal region, stage 2 Dementia Diaphragmatic hernia Dysphagia Epilepsy due to and not concurrent with traumatic brain injury GERD (gastroesophageal reflux disease) GI hemorrhage Hemiparesis, right History of DVT (deep vein thrombosis) Hydrocephalus Hyperlipidemia Hyponatremia Ileus Obese class I Schizophrenia, paranoid Traumatic brain injury Ventriculo-peritoneal shunt status Procedure/Surgical History Esophagogastroduodenoscopy: 01/20/17 Colonoscopy: 01/20/17 Esophagogastroduodenoscopy: 12/25/14 Lysis of adhesions Exploratory laparotomy craniotomy Home Medications Acetaminophen: 650 mg = 2 tablet, By Mouth, Every 6 hours, PRN (as needed for fever/pain) Ascorbic Acid: 1,000 mg = 1 tablet, By Mouth, Daily in AM Bisacodyl: 10 mg = 1 supp, Rectally, Daily, at 1600. hold if 2 BMs in one day Cholecalciferol: 2,000 International_Units = 1 capsule, By Mouth, Daily in AM Diazepam: 10 mg, Nares, Both, Once, PRN (Seizure Activity), Seizures >5mins Docusate: 200 mg = 2 capsule, By Mouth, Daily, Please HOLD if more than 2 bowel movements a day. with plenty of water Ferrous Gluconate: 324 mg = 1 tablet, By Mouth, Daily in AM Gabapentin: 200 mg = 2 capsule, By Mouth, Daily at bedtime Lacosamide: 300 mg = 2 tablet, By Mouth, Daily at bedtime Lacosamide: 150 mg = 1 tablet, By Mouth, Daily in AM Lacosamide: 75 mg = 0.5 tablet, By Mouth, Every afternoon Lactulose: 20 Gm = 30 mL, By Mouth, Every 8 hours, PRN (as needed for constipation), give if no BM in 2 days Lamotrigine: 100 mg = 1 tablet, By Mouth, Daily at bedtime, Resume this dose on 03/27 Lamotrigine: 200 mg = 1 tablet, By Mouth, 2 times a day, admin 200 mg with 100 mg at bedtime dose only levETIRAcetam: 1,500 mg = 2 tablet, By Mouth, 2 times a day linaclotide: 290 mcg = 1 capsule, By Mouth, Daily at supper, 4pm Magnesium Oxide: 400 mg = 1 tablet, By Mouth, Daily Methenamine: 1 Gm = 1 tablet, By Mouth, Daily in AM Metoclopramide: 10 mg = 1 tablet, By Mouth, 4 times a day Milk of Magnesia: 2.4 Gm = 30 mL, By Mouth, 2 times a day Omeprazole: 20 mg = 1 capsule, By Mouth, Daily in AM, open capsule Oxcarbazepine: 300 mg = 1 tablet, By Mouth, Daily in AM, 600mg every afternoon and 900mg at bedtime Oxcarbazepine: 600 mg = 1 tablet, By Mouth, Daily, 12 noon Oxcarbazepine: 900 mg = 3 tablet, By Mouth, Daily at bedtime Risperidone: 2 mg = 1 tablet, By Mouth, 2 times a day Senna: 17.2 mg = 2 tablet, By Mouth, 2 times a day, Please HOLD if more than 2 bowel movements a day. with plenty of water Simethicone: 80 mg = 1 tablet, Chew, 3 times a day Sodium Biphosphate-Sodium Phosphate: 1 each, Rectally, Once, PRN (for constipation) Sodium Chloride: 1 Gm = 1 tablet, By Mouth, Daily in AM Allergies NKA Social History Alcohol Use: Never. Electronic Cigarette/Vaping Electronic Cigarette Use: Never. Substance Abuse Use: Never. Tobacco Use: Never (less than 100 in lifetime). Family History No family history recorded. [1]??CT Head/Brain W/O Contrast; Albert ABREU, Blake Pa 04/06/2024 17:54 EST * Edelmira ABREU, Edgard Elena: PERFORM Event Display: Consultation Note Authored Date: I personally saw and examined the patient and agree with the findings and plan as noted below.?? 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 No witnessed seizures are present and there is no signs of infection.?? Routine EEG from earlier in the day showed left-sided slowing??along with mild generalized slowing but without??epileptiform activity. ?? 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 No evidence of ongoing seizures.?? Will continue on??home antiepileptics at this time.?? Follow antiepileptic levels.?? Seizure precautions.?? Will follow. Note * Stephy Price RN: PERFORM Event Display: Discharge/Transfer Note Hospital Authored Date: [id number] Nursing Discharge Note Entered On: 04/10/2024 18:28 EST Performed On: 04/10/2024 18:28 EST by Stephy Price RN Nursing Discharge Note 2 Discharge Time : 04/10/2024 18:30 EST Discharge Level of Care at Discharge : Home/Custodial/Foster Care Discharge Nursing Homes/Rehab Facilities : [address] [place] [address] [place]TER[place] Patient Left Unit Via : Wheelchair Patient Accompanied Off Unit with : Responsible adult DC Instructions Provided & Signed by Pt : Yes Patient Understands D/C Instructions : Yes Patient Instructions Discharge Signed : Yes Did Pt have Specialty Bed or Wound Vac : No Stephy Price RN - 04/10/2024 18:28 EST * Wilmar ABREU, Sonya: PERFORM, MODIFY, MODIFY, MODIFY, MODIFY, MODIFY, MODIFY, MODIFY Event Display: Discharge/Transfer Note Hospital Authored Date: [id number] Patient: ??AVA MANCUSO ? Age:??63 Years?Sex:??Male?:??1960?? Patient Information Discharge Location: Primary Care Physician: René Oliva MD Admit Date/Time: 04/06/2024 20:48 Discharge Disposition Discharge Disposition: [facility] Facility/Rehab Discharge Diagnosis Acute Metabolic Encephalopathy 2/2 to Dehydration Hypovolemic Hyponatremia (E87.1) _ Discharge Medications Acetaminophen (acetaminophen 325 mg oral tablet)?650?Milligram?2?tablet?By Mouth?Every 6 hours?as needed?as needed for fever/pain?325?1?650?2?not to exceed 4000 mg/day?Mild Pain/Fever?as needed for fever/pain Ascorbic Acid (ascorbic acid 1000 mg oral tablet)?1?tab(s)?1,000?Milligram?By Mouth?Daily?Daily in AM Bisacodyl (Dulcolax 10 mg rectal suppository)?1?suppository(ies)?10?Milligram?Rectall y?Daily?as needed?as needed for constipation?at 1600. hold if 2 BMs in one day Cholecalciferol (cholecalciferol 2000 intl units oral capsule)?1?capsule?2,000?International Unit?By Mouth?Daily?Daily in AM Diazepam (Valtoco 10 mg Dose nasal spray)?10?Milligram?Once?as needed?as needed?Nares, Both?Seizure Activity?Seizures >5mins Docusate (Colace sodium 100 mg oral capsule)?200?Milligram?2?capsule?By Mouth?Daily?Please HOLD if more than 2 bowel movements a day. with plenty of water Ferrous Gluconate (ferrous gluconate 324 mg oral tablet)?1?tab(s)?324?Milligram?By Mouth?Daily?Daily in AM Gabapentin (gabapentin 100 mg oral capsule)?200?Milligram?2?capsule?By Mouth?Daily at bedtime Lacosamide (lacosamide 150 mg oral tablet)?2?tab(s)?300?Milligram?By Mouth?Daily at bedtime Lacosamide (lacosamide 150 mg oral tablet)?1?tab(s)?150?Milligram?By Mouth?Daily?Daily in AM Lacosamide (lacosamide 150 mg oral tablet)?0.5?tab(s)?75?Milligram?By Mouth?Dailybefore lunch?Every afternoon Lactulose (lactulose 10 gm/15 ml oral syrup)?30?Milliliter?20?gram?By Mouth?Daily?Every 8 hours?as needed?as needed for constipation?give if no BM in 2 days Lamotrigine (LaMICtal 100 mg oral tablet)?300?Milligram?3?tablet?By Mouth?Daily at bedtime?100?1?Resume this dose on 03/27 Lamotrigine (LaMICtal 200 mg oral tablet)?1?tab(s)?200?Milligram?By Mouth?2 timesa day?admin 200 mg with 100 mg at bedtime dose only levETIRAcetam (levETIRAcetam 750 mg oral tablet)?2?tab(s)?1,500?Milligram?By Mouth?2 times a day linaclotide (Linzess 290 mcg oral capsule)?1?capsule?290?Microgram?By Mouth?Dailyat supper?4pm Magnesium Oxide (magnesium oxide 400 mg oral tablet)?1?tab(s)?400?Milligram?By Mouth?Daily Methenamine (methenamine hippurate 1 gm oral tablet)?1?tab(s)?1?gram?By Mouth?Daily in AM Metoclopramide (metoclopramide 10 mg oral tablet)?1?tab(s)?10?Milligram?By Mouth?4 times a day Milk of Magnesia (Milk of Magnesia 8% oral suspension)?30?Milliliter?2.4?gram?By Mouth?2 times a day Omeprazole (omeprazole 20 mg oral enteric coated capsule)?1?capsule?20?Milligram?By Mouth?Daily in AM?open capsule Oxcarbazepine (OXcarbazepine 300 mg oral tablet)?300?Milligram?1?tablet?By Mouth?Daily in AM?600mg every afternoon and 900mg at bedtime Oxcarbazepine (OXcarbazepine 600 mg oral tablet)?1?tab(s)?600?Milligram?By Mouth?Daily?in afternoon?2?1,200?12 noon?1?600 Oxcarbazepine (OXcarbazepine 300 mg oral tablet)?900?Milligram?3?tablet?By Mouth?Daily at bedtime Risperidone (risperiDONE 2 mg oral tablet)?2?Milligram?1?tablet?By Mouth?2 times a day Senna (Senna 8.6 mg oral tablet)?17.2?Milligram?2?tab(s)?By Mouth?2 times a day?as needed?for constipation?Please HOLD if more than 2 bowel movements a day. with plenty of water Simethicone (simethicone 80 mg oral tablet, chewable)?80?Milligram?1?tablet?Chew?3 times a day Sodium Biphosphate-Sodium Phosphate (Fleet Enema 19 gm-7 gm rectal enema)?1?Each?Rectally?Once?as needed?for constipation Sodium Chloride (sodium chloride 1 gm oral tablet)?1?tab(s)?1?gram?By Mouth?Dailyin AM Medications Started none Medications Discontinued none Doses Changed none PCP Follow-Up/Heads-Up 1) Admitted for worsening mental status which was attributed to Absence seizures. No acute process.EEG was unremarkable. ??Pt?? was back to [facility] prior to DC Hospital Course ?? This is a 62-year-old man who has significant history of traumatic brain injury (1984) status post left craniotomy and PIN B[employer] M[employer] shunt with residual right sided weakness, epilepsy, paranoid schizophrenia, GERD, chronic constipation, hyponatremia who is brought to the emergency room from a detention with altered mental status and decreased responsiveness. Admitted for worsening mental status with concerns for acute metabolic encephalopathy vs. Absence seizure. On arrival, vitals were stable, chest x-ray did not show any acute cardiopulmonary process. 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 Neurology was consulted who reported no seizures on EEG w/ recommendation to continue on current seizure Meds. An Infectious process was rules out. Influenza A & B as well as COVID-19 came back negative. Urinalysis unremarkable. Initially, one dose of Rocephin was given in the ER and later deescalated. His whole course was attributed to acute metabolic Encephalopathy 2/2 to dehydration and hypovolemic hyponatremic. He was given fluid resuscitation and pt is back to baseline and safe for discharge to a rehab facility. ?? Seizure Disorder (G40.909) ?? Recommendations: Continue lacosamide, lamotrigine, Keppra, and oxcarbazepine (PO meds crushed in applesauce) ?? Hyponatremia (E87.1) - improved ?? Acute Metabolic Encephalopathy, resolved Pt??back to BL after fluid resuscitation. ?? Chronic Stable Issues. Anemia (D64.9): Stable. Continue?? Ferrous sulfate Constipation (K59.00): Continue Senna and Doculax GERD (gastroesophageal reflux disease) (K21.9): Continue PPI and metoclopramide daily. Schizophrenia (F20.9): Continue home medication risperidone. ?? Objective Vital Signs?? Temperature: 98.4 DegF (04/10/24 07:00:00) Temperature Route: Oral (04/10/24 07:00:00) Pulse Rate: 77 bpm (04/10/24 07:00:00) Respiratory Rate: 19 br/min (04/10/24 07:00:00) Systolic Blood Pressure:??152 mm Hg??High (04/10/24 07:00:00) Diastolic Blood Pressure:??90 mm Hg??High (04/10/24 07:00:00) Blood pressure sites: Leg, right (04/09/24 22:00:00) Mean Arterial Pressure: 89 mm Hg (04/10/24 05:29:00) Pulse Pressure: 39 mm Hg (04/10/24 05:29:00) Oxygen Saturation: 99 % (04/10/24 07:00:00) Mode of Delivery (Oxygen): Room air (04/10/24 07:00:00) Early Warning Score: 0 (04/10/24 07:38:35) ? Intake/Output? 04/06 20:48 04/10 07:00 04/09 07:00 04/08 07:00 04/07 07:00 ?? 04/10 13:14 04/10 13:14 04/10 06:59 04/09 06:59 04/08 06:59 Intake ? 2095 ?0 ?354 ? 1170 ?472 Output ? 2049 ?0 ? 1050 ?200 ?400 Net Total ? 46 ?0 ? -696 ?970 ? 72 ? Urine Count ?2 ?0 ?0 ?1 ?1 ? . Physical Exam Constitutional: Alert, on room air, in no acute distress. HEENT:??Well healed left craniotomy scar. Pupils do not respond to light.??Left eye somewhat exotropic. Respiratory: Comfortable work of breathing with normal rate. Lungs essentially CTA. Cardiovascular: S1 S2 regular. No murmurs, rubs or gallops. No edema. Gastrointestinal: Abdomen soft, nontender, and nondistended. +BS. Neurologic: Tracking gaze.??Contractures with spasticity in RUE, stiff??but mobile??to movement forcardiac auscultation. Skin: No rashes or lesions. No petechiae or purpura. Extremities warm and well perfused. Musculoskeletal: No cyanosis or clubbing.??R thenar atrophy. Psychiatric: Nonverbal. Affect calm Pending Results Basic Metabolic Panel ordered on 04/07/2024 Lacosamide Level ordered on 04/07/2024 Lamotrigine Level ordered on 04/07/2024 Osmolality Urine ordered on 04/06/2024 Oxcarbazepine Level ordered on 04/07/2024 Sodium Urine ordered on 04/06/2024 Follow-Up Appointments Added Follow Up ?Time Frame ?Comments Hazel ABREU , René Barclay Patient Instructions ??[facility] due [facility]. The confusion was attributed to your chronic illnesses, which is your?seizure disorder. We started you on your home medication and youtolerated it well.?? You are safe for discharge with continue follow up with your PCP. Your detention will have all your medications and will administer?? it to you.?? If worsening symptoms such as confusion, please go to necessary ER.?? Home Health Face to Face ^HomeHealthFTF Results Discharge Labs BACTERIOLOGY Blood Culture Results Preliminary report ()?? 04/06/2024 11:15 Blood Culture Specimen Source BLOOD ()?? 04/06/2024 11:15 Blood Culture Isolate 1 Comment ()?? 04/06/2024 11:15 Blood Cult 2 Results Preliminary report ()?? 04/06/2024 11:17 Blood Culture 2 Specimen Source BLOOD ()?? 04/06/2024 11:17 Blood Culture 2 Isolate 1 Comment ()?? 04/06/2024 11:17 ?? BLOOD COUNT & DIFF WBC 6.0 k/mm3 ()?? 04/08/2024 02:06 RBC 3.92 m/mm3 (Low)?? 04/08/2024 02:06 Hgb 11.6 Gm/dL (Low)?? 04/08/2024 02:06 Hct 34.3 % (Low)?? 04/08/2024 02:06 MCV 87.5 femtoliters ()?? 04/08/2024 02:06 MCH 29.6 pg ()?? 04/08/2024 02:06 MCHC 33.8 Gm/dL ()?? 04/08/2024 02:06 Platelet Count 227 k/mm3 ()?? 04/08/2024 02:06 RDW-SD 39.1 femtoliters ()?? 04/08/2024 02:06 MPV 8.5 femtoliters (Low)?? 04/08/2024 02:06 Nucleated RBC (Automated) 0.0 #/100 WBC'S ()?? 04/08/2024 02:06 Abs. NRBC 0.0 k/mm3 ()?? 04/08/2024 02:06 Abs. Neut 4.4 k/mm3 ()?? 04/06/2024 11:17 Abs. Lymph 1.1 k/mm3 ()?? 04/06/2024 11:17 Abs. [place] 0.6 k/mm3 ()?? 04/06/2024 11:17 Abs. Eo 0.0 k/mm3 ()?? 04/06/2024 11:17 Abs. Baso 0.0 k/mm3 ()?? 04/06/2024 11:17 Neut % 71.9 % ()?? 04/06/2024 11:17 Lymph % 18.0 % ()?? 04/06/2024 11:17 [place] % 9.1 % ()?? 04/06/2024 11:17 Eos % 0.5 % ()?? 04/06/2024 11:17 Baso % 0.2 % ()?? 04/06/2024 11:17 Imm Gran 0.3 % ()?? 04/06/2024 11:17 Abs. Imm Gran 0.0 k/mm3 ()?? 04/06/2024 11:17 ?? CHEM GENERAL Sodium 134 mmol/L ()?? 04/08/2024 02:07 Potassium 3.7 mmol/L ()?? 04/08/2024 02:07 Chloride 100 mmol/L ()?? 04/08/2024 02:07 Bicarbonate Level 23 mmol/L ()?? 04/08/2024 02:07 Anion Gap 11 ()?? 04/08/2024 02:07 Glucose Level 89 mg/dL ()?? 04/08/2024 02:07 BUN 9 mg/dL ()?? 04/08/2024 02:07 Creatinine-Blood 0.53 mg/dL (Low)?? 04/08/2024 02:07 Estimated GFR Creatinine 113 ML/MIN/1.73 M2 ()?? 04/08/2024 02:07 Calcium 8.9 mg/dL ()?? 04/08/2024 02:07 Protein, Total 6.8 Gm/dL ()?? 04/06/2024 11:13 Albumin 4.2 Gm/dL ()?? 04/06/2024 11:13 AG Ratio 1.6 ()?? 04/06/2024 11:13 Alkaline Phosphatase 139 units/L (High)?? 04/06/2024 11:13 AST (SGOT) 14 units/L ()?? 04/06/2024 11:13 ALT (SGPT) 20 units/L ()?? 04/06/2024 11:13 Bilirubin, Total 0.3 mg/dL ()?? 04/06/2024 11:13 Lactate 1.4 mmol/L ()?? 04/06/2024 11:13 ?? HEME OTHER Hold Lavender Top SPECIMEN DISCARDED AFTER 24 HOURS. ()?? 04/07/2024 13:40 ? TOXICOLOGY/TDM Levetiracetam Level 48.70 mg/L ()?? 04/07/2024 10:35 ? UA/URINALYSIS Appear/Color, Urine COLORLESS ()?? 04/06/2024 12:01 Specific [place], Urine 1.008 ()?? 04/06/2024 12:01 pH, Urine 7.0 ()?? 04/06/2024 12:01 Albumin, Urine NEGATIVE ()?? 04/06/2024 12:01 Glucose, Urine NEGATIVE ()?? 04/06/2024 12:01 Ketones, Urine NEGATIVE ()?? 04/06/2024 12:01 Bilirubin, Urine NEGATIVE ()?? 04/06/2024 12:01 Hemoglobin, Urine NEGATIVE ()?? 04/06/2024 12:01 Nitrite, Urine NEGATIVE ()?? 04/06/2024 12:01 Leukocyte, Urine NEGATIVE ()?? 04/06/2024 12:01 Urobilinogen NORMAL mg/dL ()?? 04/06/2024 12:01 WBC's, Urine <1 /HPF ()?? 04/06/2024 12:01 RBC's, Urine 1 /HPF ()?? 04/06/2024 12:01 Hold Urine Culture Testing available 48 hours from time of collection. ()?? 04/06/2024 12:01 ?? VIROLOGY Influenza A PCR NEGATIVE ()?? 04/06/2024 10:37 Influenza B PCR NEGATIVE ()?? 04/06/2024 10:37 RSV PCR NEGATIVE ()?? 04/06/2024 10:37 COVID-19 PCR Specimen Source NASAL ()?? 04/06/2024 10:37 COVID-19 PCR Result NEGATIVE ()?? 04/06/2024 10:37 ? Microbiology ?? Blood Culture 2 Results?? Completed?? Source: Blood Body Site: ?? Collected Dt/Tm: 04/06/2024 11:17 Last Updated Dt/Tm: 04/07/2024 10:18 ?? Blood Culture Result?? Completed?? Source: Blood Body Site: ?? Collected Dt/Tm: 04/06/2024 11:15 Last Updated Dt/Tm: 04/07/2024 10:18 ?? Blood Culture?? Completed?? Source: Blood Body Site: ?? Collected Dt/Tm: 04/06/2024 11:13 Last Updated Dt/Tm: 04/07/2024 10:17 ?? Blood Culture #2?? Completed?? Source: Blood Body Site: ?? Collected Dt/Tm: 04/06/2024 11:13 Last Updated Dt/Tm: 04/07/2024 10:17 ?? COVID-19, RSV, and Flu A/B, Rapid PCR?? Completed?? Source: Nasal Body Site: Nose Collected Dt/Tm: 04/06/2024 10:48 Last Updated Dt/Tm: 04/06/2024 12:37 ? Sonya Urban MD [facility] PGY1 [employer] ?? Case seen and discussed with ??Dr. Patel ? 30 minutes spent on discharge * Jorge ABREU, Glory: PERFORM Event Display: Discharge/Transfer Note Hospital Authored Date: Attending Attestation:??I have seen and examined this patient on date of discharge. ??I have discussed the case and its management with the resident and agree with the findings and plan as documentedin the resident???s note. * Stephy Price RN: PERFORM Event Display: Patient Education/Instruction Authored Date: Inpatient Adult Discharge Instructions. [address] [address] Name: AVA MANCUSO : 1960?? Visit: 04/06/2024 20:48?? Current Date: 04/10/2024 15:10 ?? Account: [id number]?? Inpatient Adult Discharge Instructions We would like to thank you for allowing us to assist you with your healthcare needs. The following includes patient education materials and information regarding your injury/illness. Our entire staffstrives to provide an excellent experience for our patients and their families. PLEASE ENSURE YOU FOLLOW-UP PER THE INSTRUCTIONS BELOW! ?? YOUR OPINION IS IMPORTANT TO US! Please complete the survey you may receive by mail or email. Your feedback will be used to make improvements to the healthcare experiences of our patients and their families. Surveys are administered by [employer], [employer]. ?? If further treatment with your primary care physician or another doctor is recommended, it is important for you to keep the appointment. Call your primary care physician or return to the Emergency Department immediately if your condition worsens, fails to improve, or new symptoms develop. If you need to find a doctor, you can call [facility] Link for a referral at [phone] or toll free at [phone]) or log in to [email or web address].. ?? [facility], in keeping with [facility] guidance, no longer requires face masks for staff, patientsor visitors in most situations. Similiar to time spent indoors at other locations, there is the chance that you were exposed to repiratory viruses during your time with us (such as flu or COVID-19). If you develop symptoms concerning for a viral respiratory infection, please seek testing (and treatment if indicated) from your medical provider or home test kit. ?? You can view and manage your care through the patient portal or by using a health care jemal of your choosing. [employer] is a website that allows you to securely view your medical information including your hospital discharge summary, office visit summaries, medications and follow-up visits. You can also request appointments, renew medications, and request access to your medical information using a health care jemal of your choosing, or just ask a question. You can enroll at [email or web address] or register during your next office visit. You have been discharged from [facility], Patient Care Unit: S3??. If you have any questions regarding these instructions, including results of studies pending, afteryou leave, please call us and we will be happy to assist you 23/11. [facility] Your Care Team Attending Physician Glory Patel MD?? Consulting Providers Glory Patel MD?? Discharging Providers Sonya Urban MD Reason for Your Visit per facility staff, pt noted to be altered, not tracking w/ his eyes. hx sz, unknown presentation. pt non-verbal and non-ambulatory at baseline.?? Your Diagnosis Acute encephalopathy Altered mental status Anemia Constipation GERD (gastroesophageal reflux disease) Schizophrenia Seizure disorder Tests Performed Below is a partial list of the tests performed during your hospitalization. You may have had other tests and procedures not included in this list. Please discuss all test results with your provider. Basic Metabolic Panel Blood Culture Blood Culture #2 Blood Culture 2 Results Blood Culture Result BUN CBC CBC w/ Differential Comprehensive Metabolic Panel COVID-19, RSV, and Flu A/B, Rapid PCR Creatinine Electrolytes Glucose Level HOLD LAVENDER TUBE K Level Lacosamide Level?-- Results Pending -- Lactate Level Lamotrigine Level?-- Results Pending -- Levetiracetam Level Oxcarbazepine Level?-- Results Pending -- Potassium Level Urinalysis w/hold for Urine Culture CT Head/Brain W/O Contrast XR Chest Portable BUN?? Basic Metabolic Panel?? Blood Culture?? Blood Culture #2?? Blood Culture 2 Results?? Blood Culture Result?? CBC?? CBC w/ Differential?? COVID-19, RSV, and Flu A/B, Rapid PCR?? CT Head/Brain W/O Contrast?? Comprehensive Metabolic Panel?? Creatinine?? Electrolytes?? Glucose Level?? Hold Lavender Top Tube (HOLD LAVENDER TUBE)?? Lacosamide Level?? Lactic Acid Level (Lactate Level)?? Lamotrigine Level?? Levetiracetam Level?? Osmolality Urine (Urine Osmolality)?? Oxcarbazepine Level?? Potassium Level (K Level)?? Sodium Urine (Urine Sodium)?? Urinalysis w/hold for Urine Culture?? Chest Portable (XR Chest Portable)?? Primary Care Provider René Oliva MD? Advance Directive Health Care Proxy on File Yes - Health Care Proxy Discharge Vitals Temperature: 98.4 DegF Weight: 96.8 kg Pulse Rate: 77 bpm ?? Respiratory Rate: 19 br/min ?? Systolic Blood Pressure:??152 mm Hg??High ?? Diastolic Blood Pressure:??90 mm Hg??High ?? Oxygen Saturation: 99 % ?? Studies Pending All studies ordered during this hospital stay have been completed unless listed below. Please discuss all pending results with your provider listed above in these instructions. ?? Basic Metabolic Panel?? Lacosamide Level?? Lamotrigine Level?? Osmolality Urine (Urine Osmolality)?? Oxcarbazepine Level?? Sodium Urine (Urine Sodium)?? What to do next Instructions From Your Doctor ??You were seen at [facility] due to confusion. The confusion was attributed to your chronic illnesses, which is your?seizure disorder. We started you on your home medication and youtolerated it well.?? You are safe for discharge with continue follow up with your PCP. Your detention will have all your medications and will administer?? it to you.?? If worsening symptoms such as confusion, please go to necessary ER.? Orders? 04/10/24 14:11:00 EST?? You Need to Schedule the Following Appointments Follow Up with??Hazel ABREU , René Barclay Where: [address] [place] [address]- Discharge Medications AVA MANCUSO :1960 Visit Date:04/06/2024 Medications: Please continue your medications until treatment is completed or stopped by your provider. Medications not listed below should be discontinued. Discuss any questions related to medications with your provider. What How Much When Instructions Next Dose Unchanged Acetaminophen (acetaminophen 325 mg oral tablet) 2 tab(s) Oral Every 6 hours as needed for as needed for fever >101/pain as needed Unchanged Ascorbic Acid (ascorbic acid 1000 mg oral tablet) 1 tab(s) Oral Daily in the morning 12/10 AM Unchanged Bisacodyl (Dulcolax 10 mg rectal suppository) 1 suppository(ies) Per rectum Daily at 1600. hold if 2 BMs in one day ?? 12/10 AM Unchanged Cholecalciferol (cholecalciferol 2000 intl units oral capsule) 1 capsule Oral Daily in the morning 12/10 AM Unchanged Diazepam (Valtoco 10 mg Dose nasal spray) 10 Milligram Nares, Both Once as needed for Seizure Activity Seizures >5mins or 2 or more seizures in 24 hrs. ?? as needed Unchanged Docusate (Colace sodium 100 mg oral capsule) 2 capsule Oral Twice a day Please HOLD if more than 2 bowel movements a day. with plenty of water ?? 04/10 PM Unchanged Ferrous Gluconate (ferrous gluconate 324 mg oral tablet) 1 tab(s) Oral Daily in the morning 04/11 AM Unchanged Gabapentin (gabapentin 100 mg oral capsule) 2 capsule Oral Daily at Bedtime Bedtime Unchanged Lacosamide (lacosamide 150 mg oral tablet) 1 tab(s) Oral Daily in the morning 04/11 AM Unchanged Lacosamide (lacosamide 150 mg oral tablet) 0.5 tab(s) Oral Every afternoon ?? 04/11 Afternoon Unchanged Lacosamide (lacosamide 150 mg oral tablet) 2 tab(s) Oral Daily at Bedtime Bedtime Unchanged Lactulose (lactulose 10 gm/ 15 ml oral syrup) 30 Milliliter Oral Every 8 hours as needed for as needed for constipation give if no BM in 2 days ?? as needed Unchanged Lamotrigine (LaMICtal 100 mg oral tablet) 1 tab(s) Oral Daily at Bedtime take with 200mg tab =300mg evening dose ?? 04/10 Bedtime Unchanged Lamotrigine (LaMICtal 200 mg oral tablet) 1 tab(s) Oral 3 times a day take with 100mg tab for evening dose =300mg ?? 04/10 PM Unchanged levETIRAcetam (levETIRAcetam 750 mg oral tablet) 2 tab(s) Oral Twice a day 04/10 PM Unchanged linaclotide (Linzess 290 mcg oral capsule) 1 capsule Oral Daily at supper 4pm ?? 04/10 Supper Unchanged Magnesium Oxide (magnesium oxide 400 mg oral tablet) 1 tab(s) Oral Daily in the morning 04/11 AM Unchanged Methenamine (methenamine hippurate 1 gm oral tablet) 1 tab(s) Oral Daily in the morning 04/11 AM Unchanged Metoclopramide (metoclopramide 10 mg oral tablet) 1 tab(s) Oral 4 times a day 04/10 PM Unchanged Milk of Magnesia (Milk of Magnesia 8% oral suspension) 30 Milliliter Oral Twice a day 04/10 PM Unchanged Omeprazole (omeprazole 20 mg oral enteric coated capsule) 1 capsule Oral Daily in the morning open capsule ?? 04/11 AM Unchanged Oxcarbazepine (OXcarbazepine 300 mg oral tablet) 3 tab(s) Oral Daily at Bedtime 04/10 Bedtime Unchanged Oxcarbazepine (OXcarbazepine 300 mg oral tablet) 1 tab(s) Oral Daily in the morning 04/11 AM Unchanged Oxcarbazepine (OXcarbazepine 600 mg oral tablet) 1 tab(s) Oral Daily 12 noon ?? 04/11 AM Unchanged Risperidone (risperiDONE 2 mg oral tablet) 1 tab(s) Oral Twice a day 04/10 PM Unchanged Senna (Senna 8.6 mg oral tablet) 2 tab(s) Oral Twice a day with plenty of water ?? 04/10 PM Unchanged Simethicone (simethicone 80 mg oral tablet, chewable) 1 tab(s) Chew 3 times a day 04/10 PM Unchanged Sodium Biphosphate-Sodium Phosphate (Fleet Enema 19 gm-7 gm rectal enema) 1 Each Per rectum Once as needed for for constipation as needed Unchanged Sodium Chloride (sodium chloride 1 gm oral tablet) 1 tab(s) Oral Daily in the morning 04/11 AM Prescription Given During Visit No new medications prescribed at time of discharge.?? Laboratory Results Below is a partial list of the most recent Laboratory test results done prior to this discharge. You may have had other tests and procedures not included in this list. Please discuss all test resultswith your provider. Basic Metabolic Panel (04/08/2024) ???Sodium - 134 mmol/L???Potassium - 3.7 mmol/L???Chloride - 100 mmol/L???Bicarbonate Level - 23 mmol/L???Anion Gap - 11???Glucose Level - 89 mg/dL???BUN - 9 mg/dL???Creatinine-Blood - 0.53 mg/dL???Estimated GFR Creatinine - 113 ML/MIN/1.73 M2???Calcium - 8.9 mg/dL Blood Culture (04/06/2024) ???Blood Culture Results - Preliminary report???Blood Culture Specimen Source - BLOOD Blood Culture #2 (04/06/2024) ???Blood Cult 2 Results - Preliminary report???Blood Culture 2 Specimen Source - BLOOD Blood Culture 2 Results (04/06/2024) ???Blood Culture 2 Isolate 1 - Comment Blood Culture Result (04/06/2024) ???Blood Culture Isolate 1 - Comment BUN (04/07/2024) ???BUN - 6 mg/dL CBC (04/08/2024) ???WBC - 6.0 k/mm3???RBC - 3.92 m/mm3???Hgb - 11.6 Gm/dL???Hct - 34.3 %???MCV - 87.5 femtoliters???MCH - 29.6 pg???MCHC - 33.8 Gm/dL???Platelet Count - 227 k/mm3???RDW-SD - 39.1 femtoliters???MPV - 8.5 femtoliters???Nucleated RBC (Automated) - 0.0 #/100 WBC'S???Abs. NRBC - 0.0 k/mm3 CBC w/ Differential (04/06/2024) ???WBC - 6.2 k/mm3???RBC - 4.33 m/mm3???Hgb - 12.9 Gm/dL???Hct - 37.4 %???MCV - 86.4 femtoliters???MCH - 29.8 pg???MCHC - 34.5 Gm/dL???Platelet Count - 275 k/mm3???RDW-SD - 37.3 femtoliters???MPV - 8.3 femtoliters???Nucleated RBC (Automated) - 0.0 #/100 WBC'S???Abs. NRBC - 0.0 k/mm3???Abs. Neut - 4.4 k/mm3???Abs. Lymph - 1.1 k/mm3???Abs. [place] - 0.6 k/mm3???Abs. Eo - 0.0 k/mm3???Abs. Baso - 0.0 k/mm3???Neut % - 71.9 %???Lymph % - 18.0 %???[place] % - 9.1 %???Eos % - 0.5 %???Baso % - 0.2 %???Imm Gran - 0.3 %???Abs. Imm Gran - 0.0 k/mm3 Comprehensive Metabolic Panel (04/06/2024) ???Sodium - 130 mmol/L???Potassium - 3.9 mmol/L???Chloride - 95 mmol/L???Bicarbonate Level - 23 mmol/L???Anion Gap - 12???Glucose Level - 98 mg/dL???BUN - 6 mg/dL???Creatinine-Blood - 0.48 mg/dL???Estimated GFR Creatinine - 116 ML/MIN/1.73 M2???Calcium - 9.2 mg/dL???Protein, Total - 6.8 Gm/dL???[place] - 4.2 Gm/dL???AG Ratio - 1.6???Alkaline Phosphatase - 139 units/L???AST (SGOT) - 14 units/L???ALT (SGPT) - 20 units/L???Bilirubin, Total - 0.3 mg/dL COVID-19, RSV, and Flu A/B, Rapid PCR (04/06/2024) ???Influenza A PCR - NEGATIVE???Influenza B PCR - NEGATIVE???RSV PCR - NEGATIVE???COVID-19 PCR Specimen Source - NASAL???COVID-19 PCR Result - NEGATIVE Creatinine (04/07/2024) ???Creatinine-Blood - 0.47 mg/dL???Estimated GFR Creatinine - 117 ML/MIN/1.73 M2 Electrolytes (04/07/2024) ???Sodium - 135 mmol/L???Potassium - 5.9 mmol/L???Chloride - 104 mmol/L???Bicarbonate Level - 18 mmol/L???Anion Gap - 13 Glucose Level (04/07/2024) ???Glucose Level - 93 mg/dL HOLD LAVENDER TUBE (04/07/2024) ???Hold Lavender Top - SPECIMEN DISCARDED AFTER 24 HOURS. K Level (04/07/2024) ???Potassium - 4.0 mmol/L Lactate Level (04/06/2024) ???Lactate - 1.4 mmol/L Levetiracetam Level (04/07/2024) ???Levetiracetam Level - 48.70 mg/L Potassium Level (04/07/2024) ???Potassium - HEMOLYZED Urinalysis w/hold for Urine Culture (04/06/2024) ???Appear/Color, Urine - COLORLESS???Specific [place], Urine - 1.008???pH, Urine - 7.0???Albumin, Urine - NEGATIVE???Glucose, Urine - NEGATIVE???Ketones, Urine - NEGATIVE???Bilirubin, Urine - NEGATIVE???Hemoglobin, Urine - NEGATIVE???Nitrite, Urine - NEGATIVE???Leukocyte, Urine - NEGATIVE???Urobilin ogen - NORMAL? ?WBC's, Urine - <1 /HPF? ?RBC's, Urine - 1 /HPF? ?Hold Urine Culture - Testing available 48 hours from time of collection. You will be contacted within 72 hours with your results. Allergies (NKA means No Known Allergies) NKA Problems Active Problems??(21) Anemia?? Colitis?? Constipation?? COVID-19?? Decubitus ulcer of coccygeal region, stage 2?? Dementia?? Diaphragmatic hernia?? Dysphagia?? 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 GERD (gastroesophageal reflux disease)?? GI hemorrhage?? Hemiparesis, right?? History of DVT (deep vein thrombosis)?? Hydrocephalus?? Hyperlipidemia?? Hyponatremia?? Ileus?? Obese class I?? Schizophrenia, paranoid?? Traumatic brain injury?? Ventriculo-peritoneal shunt status?? Education Materials Below is the list of Educational Leaflet Providered with your Discharge Instructions. Valuables and Belongings I fully understand and agree that [facility] accepts no responsibility for all my personal property including clothing, toilet articles, radios, jewelry, dentures, hearing aids, rings, money, or any other property that is in my possession or is brought to me after admission. I understand certain valuables may be placed in a hospital safe for a short period of time. I understand that the hospital is not liable for loss or damage due to accident, fire, or other natural occurrence while said property is in the safe. I accept full responsibility for any personal property that I keep with me, and will not hold the hospital responsible in case of loss or disappearance. I acknowledge that i have been encouraged to send valuables and belongings home. ?? Review of Valuable and Belonging List: Other: Care facility personnel Date for Pt to Sign Valuables/Belongings: 04/06/24 11:14:00 ?? Other Discharge Information ? Case Management Discharge Plan?? Discharge Plan?? Discharge Nursing Homes/Rehab Facilities: [facility] ?? Pulmonary Rehab Status?? Pulmonary Rehab Discharge Status?? Respiratory Rate: 19 br/min ? Common Emergency Awareness Tips IS IT A STROKE? Act FAST and Check for these signs: FACE Does the face look uneven? ARM Does one arm drift down? SPEECH Does their speech sound strange? TIME Call at any sign of stroke ?? Heart Attack Signs Chest discomfort: Most heart attacks involve discomfort in the center of the chest and lasts more than a few minutes, or goes away and comes back. It can feel like uncomfortable pressure, squeezing, fullness or pain. Discomfort in upper body: Symptoms can include pain or discomfort in one or both arms, back, neck, jaw or stomach. Shortness of breath: With or without discomfort. Other signs: Breaking out in a cold sweat, nausea, or lightheaded. Remember, MINUTES DO MATTER. If you experience any of these heart attack warning signs, call to get immediate medical attention! ?? Smoking can increase your chances of developing chronic health problems and can cause harmful effects to other family members in your house. If you smoke, you are strongly encouraged to quit. Please call [facility] Screenmailer Link at [phone] or [phone]-[phone] ([phone]) or log in to [email or web address] for referrals to smoking cessation programs. ?? 257 Suicide & Crisis Lifeline is available 23/11 if you or someone you know needs to find a reason to keep living. By calling 730 you'll be connected to a skilled, trained counselor at a crisis center in your area. INPATIENT DISCHARGE INSTRUCTIONS SIGNATURE PAGE MANCUSO AVA Location:[facility] Registration Date and Time:04/06/2024 20:48 EST Primary Care Physician: Hazel ABREU , René Barclay, Attending Physician: Jorge ABREU, Glory, I AVA MANCUSO, have received the above patient education materials/instructions and have verbalized understanding. If ambulance or transport services are being used I further acknowledge being given a choice of service. ?? If you need to contact me, please call me at this number: . Patient/Cashier Payments Received Name: Patient/Cashier Payments Received Signature: Relationship to Patient: Witness Name/Signature: Date: Patient Care team information Care Team Personnel Name: Justine Beal RN Position: S RN Member Role: Primary Care Nurse Name: Hortencia Elkins RN Position: S RN Member Role: Primary Care Nurse Name: Mae Priest RN Position: [facility] SN RN Member Role: Primary Care Nurse Name: Maral Bautista RN Position: S RN Member Role: Primary Care Nurse Name: Moses Lopez RN Position: S RN Member Role: Primary Care Nurse Name: Lexus Hernandez RN Position: S RN Member Role: Primary Care Nurse Name: Mila Alicea RN Position: S RN Member Role: Primary Care Nurse Name: Milly Zapata RN Position: [facility] AMB Nurse Member Role: Primary Care Nurse Name: Jessica Cuevas RN Position: [facility] ED RN W/OE and Tasks Member Role: Primary Care Nurse Name: Helen Michelle RN Position: [facility] ED RN W/OE and Tasks Member Role: Primary Care Nurse Name: Ekta Wilkerson RN Position: [facility] RN Member Role: Primary Care Nurse Name: Maral Coleman Position: [facility] Outreach Member Role: Primary Care Nurse Name: Trish Guallpa RN Position: [facility] RN Member Role: Primary Care Nurse Name: Jeanne Keane RN Position: [facility] RN Member Role: Primary Care Nurse Name: Maria G Mae RN Position: [facility] RN Member Role: Primary Care Nurse Name: Leona Hollis RN Position: [facility] HBO Wound Member Role: Primary Care Nurse Name: Jennifer High RN Position: [facility] RN Member Role: Primary Care Nurse Name: Katie Perdue RN Position: [facility] RN Member Role: Primary Care Nurse Name: Julia Rome RN Position: [facility] SN RN Member Role: Primary Care Nurse Name: Stephy Aguilar RN Position: [facility] GABRIEL Office Staff Member Role: Primary Care Nurse Name: Eloisa Fitch Position: [facility] RN Member Role: Primary Care Nurse Name: Mamadou Garcia RN Position: [facility] RN Member Role: Primary Care Nurse Name: Tammy Zuniga RN Position: [facility] RN Member Role: Primary Care Nurse Name: Essence Sam RN Position: [facility] RN Member Role: Primary Care Nurse Name: Jennifer Manuel RN Position: [facility] ED RN W/OE and Tasks Member Role: Primary Care Nurse Name: Vannesa Courtney RN Position: [facility] RN Member Role: Primary Care Nurse Name: Oren Martínez RN Position: [facility] Outreach Member Role: Primary Care Nurse Name: Cyndie Rincon RN Position: [facility] AMB Nurse Member Role: Primary Care Nurse Name: Nan Zambrano RN Position: [facility] RN Member Role: Primary Care Nurse Name: Dafne Meade RN Position: [facility] RN Member Role: Primary Care Nurse Name: Andrea Wilkerson LPN Position: [facility] RN Member Role: Primary Care Nurse Name: Alonso Valdez RN Position: [facility] RN Member Role: Primary Care Nurse Name: Charo Mina RN Position: [facility] RN Member Role: Primary Care Nurse Name: René Oliva MD Position: [facility] Outreach Member Role: PCP Address: [address] [place] [id number] Telecom: Name: Alexandra Rodriges RN Position: [facility] SN RN Member Role: Primary Care Nurse Name: Rosalia Cosme RN Position: [facility] RN Member Role: Primary Care Nurse Name: Pavel Sargent RN Position: [facility] RN Member Role: Primary Care Nurse Name: José Miguel Bass RN Position: [facility] RN Member Role: Primary Care Nurse Name: José Hernandez RN Position: [facility] RN Member Role: Primary Care Nurse Name: Janet Freeman RN Position: [facility] ED RN W/OE and Tasks Member Role: Primary Care Nurse Name: Macario Hernandez RN Position: [facility] ED RN W/OE and Tasks Member Role: Primary Care Nurse Name: Meredith Rubio RN Position: [facility] RN Member Role: Primary Care Nurse Name: Tata Kaminski RN Position: [facility] RN Member Role: Primary Care Nurse Name: Ana Fry RN Position: [facility] Rad RN Member Role: Primary Care Nurse Name: Mireya Cloud RN Position: [facility] RN Member Role: Primary Care Nurse Name: Tata Garcia RN Position: [facility] RN Member Role: Primary Care Nurse Name: Chaitanya Murillo RN Position: [facility] RN Member Role: Primary Care Nurse Name: Cecilia Castillo RN Position: [facility] AMB Nurse Member Role: Primary Care Nurse Name: Donna Mcneill RN Position: [facility] RN Member Role: Primary Care Nurse Name: Selma Schmidt RN Position: [facility] Flaker Operator Member Role: Primary Care Nurse Name: Manuel Lecuhga RN Position: [facility] RN Member Role: Primary Care Nurse Name: Sylvia Ferrari RN Position: [facility] RN Member Role: Primary Care Nurse Name: Paulette Hooks RN Position: [facility] Flaker Operator Member Role: Primary Care Nurse Name: Aruna Dinero RN Position: [facility] RN Member Role: Primary Care Nurse Name: Milton Salmeron RN Position: [facility] RN Member Role: Primary Care Nurse Name: Jil Nieto RN Position: [facility] RN Member Role: Primary Care Nurse Name: Liliane Howard RN Position: [facility] RN Member Role: Primary Care Nurse Name: Ashlee Negron RN Position: [facility] RN Supv Member Role: Primary Care Nurse Name: Tiffanie Marcus NP Position: [facility] PCO Associate Professional Member Role: Primary Care Nurse Address: [address] [place] [id number]- Telecom: Name: Tiff Dennis RN Position: [facility] RN Member Role: Primary Care Nurse Name: Benji Rivas RN Position: [facility] RN Member Role: Primary Care Nurse Name: Teresita Barboza RN Position: [facility] RN Member Role: Primary Care Nurse Name: Dodie Arias RN Position: [facility] RN Member Role: Primary Care Nurse Name: Kesha Edwards RN Position: [facility] AMB Nurse Member Role: Primary Care Nurse Name: Aleshia Gross RN Position: [facility] ED RN W/OE and Tasks Member Role: Primary Care Nurse Name: Antelmo Davis MD Position: [facility] Outreach Member Role: Lifetime Consulting Physician Address: [address] [place] [address] [address] [facility], [place] [address]- Telecom: Name: Rubi Osborne RN Position: [facility] RN Member Role: Primary Care Nurse Name: Nieves Lowry RN Position: [facility] RN Member Role: Primary Care Nurse Name: Tisha Jones RN Position: [facility] RN Member Role: Primary Care Nurse Name: Yarely Colindres RN Position: [facility] Hospital Flaker Operator Member Role: Primary Care Nurse Name: Farhana Conde RN Position: [facility] Hospital Flaker Operator Member Role: Primary Care Nurse Name: Tera Alcantar RN Position: [facility] RN Member Role: Primary Care Nurse Name: Kymberly Bustillos RN Position: [facility] ED RN W/OE and Tasks Member Role: Primary Care Nurse Name: Karmen Reed RN Position: [facility] OB RN Member Role: Primary Care Nurse Name: Maral Fan RN Position: [facility] RN Member Role: Primary Care Nurse Name: Radha Bruno RN Position: [facility] SN RN Member Role: Primary Care Nurse Name: Tata Villavicencio RN Position: [facility] AMB Nurse Member Role: Primary Care Nurse Name: Paulette Hoang RN Position: [facility] RN Member Role: Primary Care Nurse Name: Pan Barrett MD Position: [facility] Renal MD Member Role: Lifetime Consulting Physician Address: [address] [facility] [address] [facility] [address] Telecom: Name: Evelin Perez RN Position: [facility] AMB Nurse Member Role: Primary Care Nurse Name: Michelle Jalloh RN Position: [facility] RN Member Role: Primary Care Nurse Name: Emilia Glass RN Position: [facility] RN Member Role: Primary Care Nurse Name: Halie Bledsoe RN Position: [facility] Onco RN Member Role: Primary Care Nurse Name: Stephanie Brooks RN Position: [facility] SN RN Member Role: Primary Care Nurse Name: Ketty Lin RN Position: [facility] Flaker Operator Member Role: Primary Care Nurse Name: Sandra Ramos RN Position: [facility] RN Member Role: Primary Care Nurse Name: Hortencia Gonzalez RN Position: [facility] RN Member Role: Primary Care Nurse Name: Stephan Hernandez RN Position: [facility] RN Member Role: Primary Care Nurse Name: Ana Lubin RN, I Position: [facility] RN Member Role: Primary Care Nurse Name: Kesha Jones RN Position: [facility] RN Member Role: Primary Care Nurse Name: Candace Landrum RN Position: [facility] RN Member Role: Primary Care Nurse Care Team Related Persons Name: DONNY METZ Name: STEPHANIE MAYNARD Name: SAM FELIX Insurance Providers Guarantor name: AVA MANCUSO Health Plan Information #: 3 Payer: [employer] Member Number: [id number] Policy Number: NA Group Number: NA Health Plan Information #: 4 Payer: [email or web address] Member Number: [id number] Policy Number: NA Group Number: NA Health Plan Information #: 2 Payer: MEDICARE PART B OUTPT Member Number: [id number] Policy Number: NA Group Number: NA Health Plan Information #: 1 Payer: MEDICARE A INPT 25 Member Number: [id number] Policy Number: NA Group Number: NA
--- OUTSIDE RECORDS SUMMARY | 2024-04-11 19:14 | XMS_ITS | Continuity of Care Document ---
Author Organization [facility] [address] [facility] [address] [place] [address] Phone [phone] Social History Type Date Description Comments Sex Unknown Medical Devices Description No Information Available Encounters Description No Information Available Assessments Description No Information Available Plan of Treatment No Information Available Functional Status Description No Information Available Mental Status Description No Information Available Referrals Description No Information Available
--- OUTSIDE RECORDS SUMMARY | 2024-04-11 19:14 | XMS_ITS | Continuity of Care Document ---
Author Organization [facility] ter Address [address] [place] [address]- Support Name Relationship Address Phone SAM JUDD Unknown Unavailable DONNY METZ mother Unknown Unavailable RODGERS, AVA Personal Relationship Unknown Lisa vailable RODGERS, AVA Personal Relationship Unknown Lisa vailable ROBERTS, PRESTON Other Unknown Unavailable RODGERS, AVA Personal Relationship Unknown Lisa vailable RODGERS, AVA Personal Relationship Unknown Lisa vailable RODGERS, AVA Personal Relationship Unknown Lisa vailable RODGERS, AVA Personal Relationship Unknown Lisa vailable RODGERS, AVA Personal Relationship Unknown Lisa vailable RODGERS, AVA Personal Relationship Unknown Lisa vailable RODGERS, AVA Personal Relationship Unknown Lisa vailable RODGERS, AVA Personal Relationship Unknown Lisa vailable RODGERS, AVA Personal Relationship Unknown Lisa vailable RODGERS, AVA Personal Relationship Unknown Lisa vailable RODGERS, AVA Personal Relationship Unknown Lisa vailable MALAVI, STEPHANIE Other Unknown Unavailable RODGERS, AVA Personal Relationship Unknown Lisa vailable RODGERS, AVA Personal Relationship Unknown Lisa vailable RODGERS, AVA Personal Relationship Unknown Lisa vailable RODGERS, AVA Personal Relationship Unknown Lisa vailable RODGERS, AVA Personal Relationship Unknown Lisa vailable UNK, ALICIA Other Unknown Unavailable RODGERS, AVA Personal Relationship Unknown Lisa vailable RODGERS, AVA Personal Relationship Unknown Lisa vailable RODGERS, AVA Personal Relationship Unknown Lisa vailable RODGERS, AVA Personal Relationship Unknown Lisa vailable RODGERS, AVA Personal Relationship Unknown Lisa vailable RODGERS, AVA Personal Relationship Unknown Lisa vailable RODGERS, AVA Personal Relationship Unknown Lisa vailable NOVA, DAYN Other Unknown Unavailable RODGERS, AVA Personal Relationship Unknown Lisa vailable RODGERS, AVA Personal Relationship Unknown Lisa vailable Care Team Providers Care Manager Of Radiology Name Role Phone Hazel ABREU, René Barclay Primary Care Physician [place] [facility] [place] [id number] Date(s): 03/17/24 - 03/18/[address] [address]- Discharge Disposition: A-D/C Home Attending Physician: Pelon Easton MD Admitting Physician: Pelon Easton MD Referring Physician: Not on Staff, Referring MD Encounter Type: Disch ES Allergies, Adverse Reactions, Alerts No Known Allergies [...] Date: 03/19/23 Status: Ordered Repeat number: 1 lacosamide 150 [...] Daily at supper, 4pm, 0 Refills, Maintenance, 12/25/22 3:32:00 AM EDT, Capsule, Partial fill upon patient request if the prescription is for a schedule II opioid drug. Start Date: 12/25/22 Status: Ordered Repeat number: 1 Macrobid = 100 mg, By Mouth, Every 12 hours, 0 Refills, Maintenance, 12/29/23 5:00:00 PM EDT, Partial fill upon patient request if the prescription is for a schedule II opioid drug. Start Date: 12/29/23 Stop Date: 01/05/24 Status: Ordered Repeat number: 1 magnesium oxide [...] Date: 03/19/23 Status: Ordered Repeat number: 1 MiraLax oral powder for reconstitution = 17 Gm, By Mouth, 2 times a day, dissolve in water before taking, Maintenance, 03/19/23 12:51:00 PM EST, REC Powder, Partial fill upon patient request if the prescription is for a schedule II opioiddrug. Start Date: 03/19/23 Status: Ordered Repeat number: 1 Mucinex 600 mg oral tablet, extended release 1 tablet = 600 mg, By Mouth, Every 12 hours, PRN Congestion/Cough, Maintenance, 03/19/23 12:52:00 PM EST, ER Tablet, Partial fill upon patient request if [...] Exam Date Time Procedure Performing Provider Status 03/18/24 1:[address] Head/Brain W/O Contrast Nohelia Alexandra (Verified) Notes: (CT Head/Brain W/O Contrast) Reason For Exam: ? Seizure;Shunt RESULT: CT Head/Brain W/O Contrast CT Head/Brain W/O Contrast INDICATION: Hx of Present Illness: aams; Reason: Shunt; ? Seizure; Clinical Question(s): Other:; Hematoma, No contrast; Order Comment: TECHNIQUE: Noncontrast head CT using axial technique and reconstructed in axial and coronal planes.Iterative reconstruction techniques are used to optimize dose and image quality. CTDIvol Head: 48.10 mGy, DLP Head: 772 mGy*cm. COMPARISON: 12/27/2023 multiple priors FINDINGS: Chest Painting Leader view findings, lines and tubes: None. BRAIN AND EXTRA-AXIAL SPACES: Parietal approach ventricular catheter position unchanged. Postsurgical changes and chronic encephalomalacia in the entire left cerebral hemisphere unchanged. Unchanged ex vacuo dilation of the left lateral ventricle which measures approximately 3.4 cm at the occipital horn. (Series 202, image 39). Unchanged right frontal encephalomalacia with mild expected dilation of the adjacent frontal horn lateral ventricle. No acute infarct. No subarachnoid hemorrhage. No subdural or epidural collection. CALVARIUM, SKULL BASE, AND SOFT TISSUES: Left frontoparietotemporal craniotomy changes. The paranasal sinuses and mastoid air cells are clear. Visualized orbits and globes are intact. The extracranial soft tissues are unremarkable. IMPRESSION: 1. No acute intracranial pathology. 2. Chronic findings as mentioned above unchanged. I have personally reviewed the images and I agree with this report. WSN: [id number] Ordering Physician: Pelon Easton Dictated By: Matias Gold MD Dictated Date/Time: 03/18/24 6:21 am Reviewed By: Gordy Harris MD Signed By: Gordy Harris MD Signed Date/Time: 03/18/24 6:26 am Transcribed By: SANTO Transcribed Date/Time: 03/18/24 1:42 am Vital Signs Most recent to oldest [Reference Range]: 1 2 3 Oxygen Saturation [94-100 %] 100 % (03/18/24 2:57 PM) 97 % (03/18/24 10:05 AM) 99 % (03/18/24 7:24 AM) Pulse Rate [55-90 bpm] 85 bpm (03/18/24 2:57 PM) 65 bpm (03/18/24 10:05 AM) 67 bpm (03/18/24 7:24 AM) Blood Pressure [90-138/55-84 mm Hg] 158/88mm Hg *H* (03/18/24 2:57 PM) 124/78mm Hg (03/18/24 10:05 AM) 133/94mm Hg (03/18/24 7:24 AM) Respiratory Rate [16-30 br/min] 15 br/min *L* (03/18/24 2:57 PM) 12 br/min *L* (03/18/24 10:05 AM) 18 br/min (03/18/24 7:24 AM) Temperature [96.8-100.4 DegF] 98.0 DegF (03/18/24 7:24 AM) 97.3 DegF (03/18/24 12:11 AM) Mode of Delivery (Oxygen) Room air (03/18/24 2:57 PM) Room air (03/18/24 7:24 AM) Room air (03/18/24 3:43 AM) Temperature Route Oral (03/18/24 7:24 AM) Rectal (03/18/24 12:11 AM) Social History Social History Type Response Smoking Status Never (less than 100 in lifetime) entered on: 07/04/21 Sex Sex Representation Male (finding) Patient Care team information Care Team Personnel Name: Justine Beal RN Position: [facility] RN Member Role: Primary Care Nurse Name: Hortencia Elkins RN Position: [facility] RN Member Role: Primary Care Nurse Name: Mae Priest RN Position: [facility] SN RN Member Role: Primary Care Nurse Name: Maral Bautista RN Position: [facility] RN Member Role: Primary Care Nurse Name: Moses Lopez RN Position: [facility] RN Member Role: Primary Care Nurse Name: Lexus Hernandez RN Position: [facility] RN Member Role: Primary Care Nurse Name: Karmen Cyr RN Position: [facility] OB RN Member Role: Primary Care Nurse Name: Milly Zapata RN Position: [facility] AMB Nurse Member Role: Primary Care Nurse Name: Faith RNJessica Position: [facility] ED RN W/OE and Tasks Member Role: Primary Care Nurse Name: Helen Michelle RN Position: [facility] ED RN W/OE and Tasks Member Role: Primary Care Nurse Name: Ekta Wilkerson RN Position: [facility] RN Member Role: Primary Care Nurse Name: Maral Coleman Position: [facility] Outreach Member Role: Primary Care Nurse Name: Trish Guallpa RN Position: [facility] RN Member Role: Primary Care Nurse Name: Jeanne Keane RN Position: [facility] RN Member Role: Primary Care Nurse Name: Maria G Mae RN Position: [facility] RN Member Role: Primary Care Nurse Name: Leona Hollis RN Position: [facility] HBO Wound Member Role: Primary Care Nurse Name: Jennifer High RN Position: [facility] RN Member Role: Primary Care Nurse Name: Katie Perdue RN Position: [facility] RN Member Role: Primary Care Nurse Name: Julia Rome RN Position: [facility] SN RN Member Role: Primary Care Nurse Name: Stephy Aguilar RN Position: [facility] GABRIEL Office Staff Member Role: Primary Care Nurse Name: Eloisa Fitch Position: [facility] RN Member Role: Primary Care Nurse Name: Mamadou Garcia RN Position: [facility] RN Member Role: Primary Care Nurse Name: Tammy Zuniga RN Position: [facility] RN Member Role: Primary Care Nurse Name: Essence Sam RN Position: [facility] RN Member Role: Primary Care Nurse Name: Jennifer Manuel RN Position: [facility] RN Member Role: Primary Care Nurse Name: Vannesa Courtney RN Position: [facility] RN Member Role: Primary Care Nurse Name: Oren Martínez RN Position: [facility] Outreach Member Role: Primary Care Nurse Name: Cyndie Rincon RN Position: [facility] AMB Nurse Member Role: Primary Care Nurse Name: Nan Zambrano RN Position: [facility] RN Member Role: Primary Care Nurse Name: Dafne Meade RN Position: [facility] RN Member Role: Primary Care Nurse Name: Andrea Wilkerson LPN Position: [facility] RN Member Role: Primary Care Nurse Name: Alonso Valdez RN Position: [facility] RN Member Role: Primary Care Nurse Name: Charo Mina RN Position: [facility] RN Member Role: Primary Care Nurse Name: René Oliva MD Position: [facility] Outreach Member Role: PCP Address: [address] [place] [id number] Telecom: Name: Alexandra Rodriges RN Position: [facility] SN RN Member Role: Primary Care Nurse Name: Rosalia Cosme RN Position: [facility] RN Member Role: Primary Care Nurse Name: Pavel Sargent RN Position: [facility] RN Member Role: Primary Care Nurse Name: José Miguel Bass RN Position: [facility] RN Member Role: Primary Care Nurse Name: José Hernandez RN Position: [facility] RN Member Role: Primary Care Nurse Name: Janet Freeman RN Position: [facility] ED RN W/OE and Tasks Member Role: Primary Care Nurse Name: Macario Hernandez RN Position: [facility] ED RN W/OE and Tasks Member Role: Primary Care Nurse Name: Meredith Rubio RN Position: [facility] RN Member Role: Primary Care Nurse Name: Tata Kaminski RN Position: [facility] RN Member Role: Primary Care Nurse Name: Ana Fry RN Position: [facility] Rad RN Member Role: Primary Care Nurse Name: Mireya Cloud RN Position: [facility] RN Member Role: Primary Care Nurse Name: Tata Garcia RN Position: [facility] RN Member Role: Primary Care Nurse Name: Chaitanya Murillo RN Position: [facility] RN Member Role: Primary Care Nurse Name: Cecilia Castillo RN Position: [facility] AMB Nurse Member Role: Primary Care Nurse Name: Donna Mcneill RN Position: [facility] RN Member Role: Primary Care Nurse Name: Selma Schmidt RN Position: [facility] Lining Machine Operator Member Role: Primary Care Nurse Name: Manuel Lechuga RN Position: [facility] RN Member Role: Primary Care Nurse Name: Sylvia Ferrari RN Position: [facility] RN Member Role: Primary Care Nurse Name: Paulette Hooks RN Position: [facility] Lining Machine Operator Member Role: Primary Care Nurse Name: Aruna Dinero RN Position: [facility] RN Member Role: Primary Care Nurse Name: Milton Salmeron RN Position: [facility] RN Member Role: Primary Care Nurse Name: Jil Nieto RN Position: [facility] RN Member Role: Primary Care Nurse Name: Liliane Howard RN Position: [facility] RN Member Role: Primary Care Nurse Name: Ashlee Negron RN Position: [facility] RN Supv Member Role: Primary Care Nurse Name: Tiffanie Marcus NP Position: [facility] PCO Associate Professional Member Role: Primary Care Nurse Address: [address] [place] [address] Telecom: Name: Tiff Dennis RN Position: [facility] RN Member Role: Primary Care Nurse Name: Benji Rivas RN Position: [facility] RN Member Role: Primary Care Nurse Name: Teresita Barboza RN Position: [facility] RN Member Role: Primary Care Nurse Name: Dodie Arias RN Position: [facility] RN Member Role: Primary Care Nurse Name: Kesha Edwards RN Position: [facility] AMB Nurse Member Role: Primary Care Nurse Name: Aleshia Gross RN Position: [facility] ED RN W/OE and Tasks Member Role: Primary Care Nurse Name: Antelmo Davis MD Position: [facility] Renal MD Member Role: Lifetime Consulting Physician Address: [address] [facility] [address] [facility], [place] [address]- Telecom: Name: Rubi Osborne RN Position: [facility] RN Member Role: Primary Care Nurse Name: Nieves Lowry RN Position: [facility] RN Member Role: Primary Care Nurse Name: Tisha Jones RN Position: [facility] RN Member Role: Primary Care Nurse Name: Yarely Colindres RN Position: [facility] Lining Machine Operator Member Role: Primary Care Nurse Name: Farhana Conde RN Position: [facility] Lining Machine Operator Member Role: Primary Care Nurse Name: Tera Alcantar RN Position: [facility] RN Member Role: Primary Care Nurse Name: Kymberly Bustillos RN Position: [facility] ED RN W/OE and Tasks Member Role: Primary Care Nurse Name: Maral Fan RN Position: [facility] RN Member Role: Primary Care Nurse Name: Radha Bruno RN Position: [facility] SN RN Member Role: Primary Care Nurse Name: Tata Villavicencio RN Position: [facility] AMB Nurse Member Role: Primary Care Nurse Name: Paulette Hoang RN Position: [facility] RN Member Role: Primary Care Nurse Name: Pan Barrett MD Position: [facility] Renal MD Member Role: Lifetime Consulting Physician Address: [address] [place] [address] [address] [facility] [address] Telecom: Name: Evelin Perez RN Position: [facility] AMB Nurse Member Role: Primary Care Nurse Name: Michelle Jalloh RN Position: [facility] RN Member Role: Primary Care Nurse Name: Emilia Glass RN Position: [facility] RN Member Role: Primary Care Nurse Name: Halie Bledsoe RN Position: [facility] Onco RN Member Role: Primary Care Nurse Name: Stephanie Brooks RN Position: [facility] SN RN Member Role: Primary Care Nurse Name: Ketty Lin RN Position: [facility] Lining Machine Operator Member Role: Primary Care Nurse Name: Sandra Ramos RN Position: [facility] RN Member Role: Primary Care Nurse Name: Hortencia Gonzalez RN Position: [facility] RN Member Role: Primary Care Nurse Name: Stephan Hernandez RN Position: [facility] RN Member Role: Primary Care Nurse Name: Ana Lubin RN, I Position: [facility] RN Member Role: Primary Care Nurse Name: Kesha Jones RN Position: [facility] RN Member Role: Primary Care Nurse Name: Candace Landrum RN Position: [facility] RN Member Role: Primary Care Nurse Care Team Related Persons Name: DONNY METZ Name: STEPHANIE MAYNARD Name: SAM JUDD Insurance Providers Guarantor name: [facility] Plan Information #: 1 Payer: MEDICARE PART B OUTPT Member Number: [id number] Policy Number: NA Group Number: NA Health Plan Information #: 2 Payer: [facility] Member Number: [id number] Policy Number: NA Group Number: NA
== END 2024-04-05 13:11 | disposition home or self-care (01) ==
PROVIDERS: PCP Family Medicine; Visit Provider Internal Medicine
DX: D64.9 Anemia, unspecified (principal); K59.00 Constipation, unspecified; S06.9X9A Unspecified intracranial injury with loss of consciousness of unspecified duration, initial encounter
CPT/HCPCS: 99213

== ENCOUNTER 2024-04-05 12:40 | Outpatient (REF) | payer MEDICARE, MEDICAID, SELFPAY ==
[2024-04-05 14:04] LABS: Hematocrit 38.6 % (42.0-52.0); Mean Corpuscular HGB Conc 33.7 g/dl (31.0-36.0); Mean Corpuscular Hemoglobin 29.1 pg (27.0-33.0); Mean Corpuscular Volume 86.5 fL (80.0-98.0); Mean Platelet Volume 8.5 fL (9.4-12.4); Platelet Count 240 X10*3/uL (160-400); Red Blood Count 4.46 X10*6/uL (4.60-5.80); Red Cell Distribution Width 11.9 % (11.0-16.0); White Blood Count 5.2 X10*3/uL (4.8-10.8)
[2024-04-05 14:44] LABS: Anion Gap 12 (12-20); Blood Urea Nitrogen 7 mg/dL (9-16); Calcium 9.3 mg/dL (8.4-10.2); Carbon Dioxide 25 mmol/L (22-29); Chloride 96 mmol/L (96-108); Estimated Glomerular Filt Rate > 60; Glucose Random 94 mg/dL (60-115); Iron 216 mcg/dL (45-160); Percent Iron Saturation 77 % (15-50); Potassium 4.4 mmol/L (3.3-5.1); Sodium 129 mmol/L (135-145); Total Iron Binding Capacity 282 mcg/dL (228-428); Unsaturated Iron Binding 66 ug/dL
[2024-04-05 15:06] LABS: Ferritin 57 ng/mL (20-250)
[2024-04-05 15:16] LABS: Folate 5.1 ng/mL (> or = 4.0); Vitamin B12 221 pg/mL (200-900)
--- OUTSIDE RECORDS SUMMARY | 2024-04-11 19:25 | XMS_ITS | Continuity of Care Document ---
Author Organization [facility] [address] [place] [address] Phone [phone] Social History Type Date Description Comments Sex Unknown Medical Devices Description No Information Available Encounters Description No Information Available Assessments Description No Information Available Plan of Treatment No Information Available Functional Status Description No Information Available Mental Status Description No Information Available Referrals Description No Information Available
== END 2024-04-05 12:41 | disposition home or self-care (01) ==
LOC: HO.LAB 12:40
PROVIDERS: PCP Family Medicine; Visit Provider Internal Medicine
DX: D64.9 Anemia, unspecified (principal); N39.0 Urinary tract infection, site not specified; K59.00 Constipation, unspecified; S06.9X9A Unspecified intracranial injury with loss of consciousness of unspecified duration, initial encounter
CPT/HCPCS: 36415; 80048; 82607; 82728; 82746; 83540; 85027; 99212

== ENCOUNTER 2024-04-17 10:58 | Outpatient (AMB) | payer MEDICARE, MEDICAID, SELFPAY ==
--- OUTSIDE RECORDS SUMMARY | 2024-04-17 11:02 | XMS_ITS | Continuity of Care Document ---
Author Organization [facility] [address] [place] [address] Phone [phone] Social History Type Date Description Comments Sex Unknown Medical Devices Description No Information Available Encounters Description No Information Available Assessments Description No Information Available Plan of Treatment No Information Available Functional Status Description No Information Available Mental Status Description No Information Available Referrals Description No Information Available
--- NOTE | 2024-04-17 11:08 | A.OFFPC_ITS ---
Vital Signs 04/17/24 11:10 Height 5 ft 10 in BMI Reason not done Patient refused/unable BP 110/60 Blood Pressure Location Lt brachial Position Sitting Respiration 16 Pulse 80 Pulse Source Pulse Oximeter Pulse Oximetry (%) 97 Oxygen Delivery Method Room Air Intake Visit Reasons: /[facility] 04/10 Allergies No Known Allergies Allergy (Unknown, Verified 12/18/23 21:17) none Tobacco use date assessed: 10/22/23 Dental Screening Dental Screen Date: 07/30/23 HPI HD/[facility] 04/10 HPI Details 63 y/o male presents to /[facility] 04/06/24 for episode of altered mental status/decreased responsiveness. Was in the hospital 04/10-04/11/24. Per?hospital?discharge?note? 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 His?whole?course?was?attributed?to?acute?metabolic?encephalopathy?secondary?to?d ehydration?and?hypovolemic?hyponatremia. He?was?given?fluid?resuscitation?and?return?to?baseline Continues to drink fluids regularly. TCM TCM Information Date of Discharge 04/10/24 Discharged From Other ([facility]) Interactive Contact Date (Reference documentation from this date) 04/17/24 HPI Comments History of Present Illness Details Documentation assistance for René Oliva MD, was provided by Marin Asher,? Administrative Services Coordinator on 04/17/2024 at 11:30 AM EST. I, Dr. Oliva, have read, observed, and verified documentation. ?? [facility] Medical History Small bowel obstruction Constipation Seizures TBI (traumatic brain injury) Surgical History History of craniotomy Family History Father Dementia Chronic mental illness Mother Hypertension Social History Housing: Other Housing Other:: Long-Term Patient Tobacco Use Status: Never used Tobacco e-Cigarette/Vaping Use: Never Used Second Hand Smoke Exposure: No service: No Current occupational status: disabled Current occupational exposures/hazards: No Cognitive needs: Yes Hearing needs: Yes Vision needs: No Questionnaire Thrive Questionnaire Date Thrive assessed: 07/30/23 KRYSTIAN-7 AMB Questionnaire KRYSTIAN-7 Date KRYSTIAN - 7 assessed: 07/30/23 Source: Developed by Drs. Jose Aldana, Stephanie Lin, Shahriar Soto and colleagues, with an educational jose from [employer]. Review of Systems Const Denies chills, Denies fatigue, Denies fever(s), Denies headache(s) and Denies weakness ENT Denies dizziness and Denies headache(s) Card Denies dyspnea Resp Denies cough, Denies dyspnea, Denies wheezing and Denies other (shortness of breath) Musc Denies numbness and Denies tingling Neuro Denies dizziness, Denies headache(s), Denies numbness, Denies tingling and Denies weakness Psych Denies anxiety and Denies depression Endo Denies fatigue Aller/Immun Denies wheezing Physical exam (Primary Care) Vital Signs: Last Vital Signs Pulse 80 04/17/24 11:10 Resp 16 04/17/24 11:10 BP 110/60 04/17/24 11:10 Pulse Ox 97 04/17/24 11:10 Oxygen Delivery Method Room Air 04/17/24 11:10 Tobacco/Smoking Status: Tobacco use Status Tobacco use date assessed 10/22/23 04/17/24 11:13 Patient Tobacco Use Status Never used Tobacco 04/17/24 11:13 e-Cigarette/Vaping Use Never Used 04/17/24 11:13 Thrive Assessment: Date of Thrive Assessment Date Thrive assessed 07/30/23 04/17/24 11:13 Const General: well developed; No acute distress Nutritional Appearance: well nourished Orientation/consciousness: patient oriented x3 HENMT Head: Yes normocephalic and Yes atraumatic Eyes General: appearance normal, both eyes and all related structures Pupils: Equal, round and reactive pupils present EOM: EOMs intact bilaterally Resp Effort & Inspection: normal respiratory effort Neuro General: patient oriented x3 and gait normal Cranial nerves: Yes Equal, round and reactive pupils present Psych Affect: normal affect Coding Level of Care Code TCM Mod MDM <= 7 Days Diagnoses Altered mental status R41.82 Dehydration E86.0 Assessment & Plan Assessment & Plan (1) Altered mental status: Code(s): R41.82 - Altered mental status, unspecified Category: Medical Plan: Per?hospital?discharge?note? 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 .?? His?whole?course?was?at tributed?to?acute?metabolic?encephalopathy?secondary?to?dehydration?and?hypovole linda?hyponatremia. He?was?given?fluid?resuscitation?and?returne?to?baseline Patient?appears?at?baseline?today?and?is?responsive?and?cooperative. Will?continue?current?medication?regimen Encouraged?good?hydration (2) Dehydration: Code(s): E86.0 - Dehydration Category: Medical Plan: Check labs including Sodium Orders: Orders Comprehensive Met. Panel Today E86.0 - Dehydration
[2024-04-17 11:10] VITALS: BP 110/60; PULSE 80; RESP 16; O2SAT 97
== END 2024-04-17 17:00 | disposition home or self-care (01) ==
PROVIDERS: PCP Family Medicine; Visit Provider Family Medicine
DX: R41.82 Altered mental status, unspecified (principal); E86.0 Dehydration

== ENCOUNTER → 2024-04-17 10:58 | Outpatient (BNVA) | payer MEDICARE, MEDICAID, SELFPAY | PROVIDERS: PCP Family Medicine; Visit Provider Family Medicine | DX: R41.82 Altered mental status, unspecified (principal); E86.0 Dehydration | CPT/HCPCS: 99212 ==

== ENCOUNTER 2024-07-03 14:55 | Outpatient (AMB) | payer MEDICARE, MEDICAID, SELFPAY ==
--- NOTE | 2024-07-03 15:06 | A.OFFVIS_ITS ---
Vital Signs 07/03/24 15:07 Height 5 ft 10 in BP 140/73 H Blood Pressure Location Lt brachial Position Sitting Pulse 70 Intake Visit Reasons: f/u constipation Intake Note: Andrei presents in the office as a follow up for constipation. CC: Still having constipation. Pains in the stomach - he does not verbalize but the staff can tell he is in discomfort. Allergies No Known Allergies Allergy (Unknown, Verified 12/26/24 12:10) none HPI Comments Details: 62 y.o M with PMH of TBI s/p ORACLE APPLICATION ARCHITECT shunt, minimally verbal, wheelchair bound, seizure disorder, remote hx of SBO s/p VIKTORIYA 2011, who presents from skilled nursing for follow up. 03/02/23: Pt previously established with [facility] (Robina SERRANO) and referral for [facility] was initiated earlier this year when the pt was moving his bowel once every 2-3 days however since then he has also been seen by colorectal surgery (Dr Mares) and has had following medications added: Miralax 17g BID Reglan 10 QID Milk of mag 30 ml BID Previously was already on Linzess 290 Senna 17.2 BID Bisacodyl supp 10mg daily With the addition of medications through [facility] in October pt now has regular bowel habits. Skein Washer reports at least once BM a day which is soft. No blood in BM. No grunting/straining or discomfort while passing a BM. Has pureed diet and skilled nursing includes fiber sources such as oatmeal, green smoothies. As outlined above pt has limited mobility and has PT but mostly for upper body strength. 06/01/23: Here with a language assistant from skilled nursing. Collateral history was also obtained from her nurse at skilled nursing Chika. Reports that most of the days does not have any issues with moving bowels. However, when patient goes more than 3 days without having a bowel movement, they give him p.r.n. enema and suppository with good effect. Otherwise, patient does not appear to be in any distress, is having good appetite. 10/06/23: Here for follow up after admission to [facility] last month for SBO. Was admitted 09/08 to 09/16. There was also question of blood in stool. Managed conservatively under surgery care. Small bowel follow through showed passage of contrast into small bowel so diet was advanced and pt eventually discharged. Since discharge has been doing well. No further abd pain, appetite is ok. Bowel movements are brown and lose. To note - has prev hx of SBO in 2011. Pt was also seen in ER on 10/03 - reason listed for hyponatremia. Skein Washer was informed to discuss this further with his PCP. 12/10/23: Here for follow up, accompanied by language assistant Raul who provides most of the history. No further issues with constipation. No further hospitalisations since he was last seen. Labs pending, reordered today. 04/05/2024: Here for follow up which was supposed to be done after the last visit. Labs not done. Pt scheduled for CT colonography on 01/27 but didnt show. Call placed to Carmen at his skilled nursing - recommendations relayed again. [phone] 07/03/24: Pt here for follow up. Labs reviewed. Anemia better, normocytic. Unfortunately CT colonography still pending. This was reviewed in detail with the language assistant. Discussed that this has been pending for at least 6 months now. [facility] Medical History Small bowel obstruction Constipation Seizures TBI (traumatic brain injury) Surgical History History of craniotomy Family History Father Dementia Chronic mental illness Mother Hypertension Social History (Updated 12/26/24 @ 12:18 by Roseanna Spear MA) Housing: Other Housing Other:: [facility] Alcohol intake: never Patient Tobacco Use Status: Never used Tobacco e-Cigarette/Vaping Use: Never Used Second Hand Smoke Exposure: No Use of substances other than those prescribed or required for medical reasons: No service: No Current occupational status: disabled Current occupational exposures/hazards: No Cognitive needs: Yes Hearing needs: Yes Vision needs: No Review of Systems Const Unobtainable due to mental condition Physical Exam Vital Signs: Last Vital Signs Pulse 70 07/03/24 15:07 BP 140/73 H 07/03/24 15:07 wheelchair bound NAD Nonicteric Responds by nodding/shaking head No wincing to abd palpation Results Reviewed Results Reviewed: Laboratory Tests 04/05/24 13:41 Hgb 13.0 L Hct 38.6 L MCV 86.5 Sodium 129 L Potassium 4.4 BUN 7 L Creatinine 0.56 Iron 216 H TIBC 282 % Saturation 77 H Ferritin 57 Vitamin B12 221 Folate 5.1 Assessment & Plan Assessment & Plan (1) Normocytic anemia: Code(s): D64.9 - Anemia, unspecified Category: Medical (2) Constipation: Code(s): K59.00 - Constipation, unspecified Category: Medical (3) TBI (traumatic brain injury): Code(s): S06.9X9A - Unspecified intracranial injury with loss of consciousness of unspecified duration, initial encounter Category: Medical Plan Reviewed with pt, accompanynig aid that anemia is better. Awaiting CT colonography. Will need consent from guardian Shekhar Pedraza - [phone] if needs to be followed up by colo. Plan: - CT colonography - Pt's language assistant to call us after CT colonography done Orders: Orders CT colonography 07/03/24 D64.9 - Anemia, unspecified Medications: New polyethylene glycol 3350 (Miralax) 17 grams PO BID 238 grams 5RF sodium phosphates 19-7 gram/118 mL (Fleet Enema) 118 mL KS DAILY PRN 532 mL 5RF constipation Changed From polyethylene glycol 3350 17 grams PO BID 510 grams 0RF To polyethylene glycol 3350 17 grams PO BID 510 grams 0RF Refilled bisacodyl 10 mg KS DAILY 28 ea 0RF for constipation Coding Level of Care Code Est Pt Level 3 (74535) Diagnoses Normocytic anemia D64.9 Constipation K59.00 TBI (traumatic brain injury) S06.9X9A
[2024-07-03 15:07] VITALS: BP 140/73; PULSE 70
--- OUTSIDE RECORDS SUMMARY | 2024-07-03 17:47 | XMS_ITS | Clinical Summary ---
Author Organization [facility] Address [address] [address] Phone Care Team Providers Care Horse Buyer Name Role Phone René Oliva MD Primary Care Provider [phone] Allergies No known active allergies Medications Sennosides 8.6 MG capsule Take 2 capsules by mouth 2 (two) times a day Active risperiDONE (RisperDAL M-TABS) 1 MG dispersible tablet Take 1.5 tablets by mouth 1.5mg Active OXcarbazepine (TRILEPTAL) 300 MG tablet Take 900 mg by mouth every evening and at bedtime 0 Active magnesium oxide (MAG-OX) 400 MG tablet Take 400 mg by mouth 0 Active lamoTRIgine (LaMICtal) 200 MG dispersible tablet Take 200 mg by mouth in the morning and 200 mg at noon and 200 mg in the evening. Active levETIRAcetam (KEPPRA) 500 MG tablet 1,000 mg in the morning and 1,000 mg in the evening. 2 Active guaiFENesin (MUCINEX) 600 MG 12 hr tablet Take 600 mg by mouth 1 Active ferrous sulfate 325 (65 Fe) MG tablet Take 325 mg by mouth 0 Active acetaminophen (TYLENOL 8 HOUR) 650 MG 8 hr tablet Take 1 tablet by mouth in the morning and 1 tablet at noon and 1 tablet in the evening and 1 tablet before bedtime. Active levETIRAcetam (KEPPRA) 250 MG tablet Take 250 mg by mouth in the morning and 250 mg in the evening. Active lamoTRIgine (LaMICtal) 100 MG tablet Take 100 mg by mouth 1 (one) time each day Active OXcarbazepine (TRILEPTAL) 300 MG tablet Take 300 mg by mouth 1 (one) time each day Every morning Active OXcarbazepine (TRILEPTAL) 600 MG tablet Take 600 mg by mouth in the morning and 600 mg in the evening. Every after noon. Active lacosamide (VIMPAT) 50 MG tablet Take 75 mg by mouth 1 (one) time each day Afternoon Active Lacosamide 200 MG tablet Take 300 mg by mouth every night Active omeprazole (PriLOSEC) [address] capsule Take 20 mg by mouth 1 (one) time each day Do not crush or chew. Active Cholecalciferol (Vitamin D) 50 MCG (2000 UT) capsule Take by mouth Active nystatin (MYCOSTATIN) 347579 UNIT/ML suspension 2 Active simethicone (MYLICON) 80 MG chewable tablet Chew 80 mg every 6 (six) hours if needed for flatulence Active lacosamide (Vimpat) 50 MG tablet Take 1.5 mg by mouth in the morning and 1.5 mg in the evening. Active Lacosamide (Vimpat) 200 MG tablet Take 1.5 mg by mouth 1 (one) time each day Active tamsulosin (FLOMAX) 0.4 MG 24 hr capsule Take 0.4 mg by mouth 1 (one) time each day Active ascorbic acid (VITAMIN C) 1000 MG tablet Take 1,000 mg by mouth 1 (one) time each day Active methenamine (HIPREX) 1 g tablet Take 1 g by mouth in the morning and 1 g in the evening. Take with meals. Active diazePAM (VALTOCO 10 MG DOSE NA) Administer 1 spray into affected nostril(s) 1 (one) time each day if needed Active polyethylene glycol (GLYCOLAX) 17 g packet Take 17 g by mouth 1 (one) time each day Active metoclopramide (REGLAN) 10 MG tablet Take 10 mg by mouth in the morning and 10 mg at noon and 10 mg in the evening and 10 mg before bedtime. Active sodium chloride 1 g tablet TAKE 1 TABLET BY MOUTH ONCE DAILY 28 tablet 11 4 Active Active Problems Problem Noted Date Diagnosed Date Anemia 06/25/2021 Colitis 06/25/2021 Constipation 06/25/2021 Unspecified dementia, unspec ified severity, without behavioral disturbance, psychotic disturbance, mood disturbance, and anxiety 06/25/2021 Diaphragmatic hernia 06/25/2021 Dysphagia 06/25/2021 Gastroesophageal reflux disease 06/25/2021 Gastrointestinal hemorrhage 06/25/2021 Deep venous thrombosis 06/25/2021 H/O: epilepsy 06/25/2021 Seizure disorder 06/25/2021 Hydrocephalus 06/25/2021 Right hemiparesis 06/25/2021 Paranoid schizophrenia 06/25/2021 Hyperlipidemia 06/25/2021 H/O Spinal surgery 06/25/2021 Hyponatremia 06/25/2021 Traumatic brain injury 06/25/2021 Immunizations Name Administration Dates Next Due Influenza, Unspecified 04/12/2019,02/14/2018,,07/04/2016 Pfizer SARS-COV-2 06/13/2020,05/23/2020 Pneumococcal Polysaccharide 12/07/2014, 0 Tdap 04/14/2016 Social History Tobacco Use Types Packs/Day Years Used Date Smoking Tobacco: Never Smokeless Tobacco: Never Tobacco Cessation:Counseling Given: Not Answered Alcohol Use Standard Drinks/Week Comments No 0 (1 standard drink = 0.6 oz pur e alcohol) Sex and Gender Information Value Date Recorded Sex Assigned at Not on file Legal Sex Male 4:43 PM EST Gender Identity Not on file Sexual Orientation Not on file Last Filed Vital Signs Vital Sign Reading Time Taken Comments Blood Pressure 106/70 04/12/2023 12:53 PM EST Pulse 79 04/12/2023 12:53 PM EST Temperature - - Respiratory Rate - - Oxygen Saturation 100% 02/10/2022 3:53 PM EDT Inhaled Oxygen Concentration - - Weight 86.2 kg (190 lb) 04/12/2023 12:53 PM EST Height - - Body Mass Index - - Plan of Treatment Upcoming Encounters Date Type Department Care Team (Late st Contact Info) Description 09/05/2024 10:30 AM EDT Office Visit [facility] [address] [phone] Pan Barrett MD [address] [address] Health Maintenance Due Date Last Done Comments Colorectal Cancer Screening: Annual FOBT 2009 Colorectal Cancer Screening: Colonoscopy 2009 Colorectal Cancer Screening: Sigmoidoscopy 2009 Pneumococcal Vaccine: Pediatrics (0 to 5 Years) and At-Risk Patients (6 to 64 Years) (3 of 3 - PCV) 12/08/2015 12/07/2014, 11/21/2009 Influenza Vaccine (#1) 2024 9, 02/14/2018, 02/24/2017, Additional history exists Hepatitis B Vaccine Aged Out No longe r eligible based on patient's age to complete this topic Procedures Procedure Name Priority Date/Time Associated Diagnosis Comments EXT RESULT ENTRY Routine 04/08/2024 from Last 3 Months Results * (ABNORMAL) EXT RESULT ENTRY (04/08/2024) WBC 6.0 3.3 - 10.0 10*3/ML Red Blood Cell Count 3.92 Hemoglobin 11.6(A) 13.5 - 17.5 Hematocrit 34.3(A) 41.0 - 53.0 Platelets 227 150 - 399 10*3/UL Sodium 134(A) 137 - 147 Potassium 3.7 3.4 - 5.5 Anion Gap 11 <=30 MMOL/L Glucose 89 60 - 200 BUN 9 4 - 21 mg/dL Creatinine 0.53(A) 0.60 - 1.30 mg/dL Calcium 8.9 8.7 - 10.7 mg/dL eGFR Non-Afr Swedish 113 04/08/2024 Historical Provider LAB BLOOD ORDERABLES Ambar l Result from Last 3 Months Insurance [place] Care Teams Horse Buyer Relationship Specialty Start Date End Date René Oliva MD [address] [place] [id number] PCP - General Family Medicine 02/10/22
--- OUTSIDE RECORDS SUMMARY | 2024-07-03 17:47 | XMS_ITS | Encounter Summary ---
Author Organization [facility] Address [address] [facility] [address] [address] Phone Care Team Providers Care Specialty Plant Supervisor Name Role Phone René Oliva MD Primary Care Provider Reason for Visit * Reason Comments Med Refill Encounter Details Date Type Department Care Team (Late st Contact Info) Description 02/09/2023 Refill [facility] [address] [place] [phone] Antelmo Davis MD Social History Tobacco Use Types Packs/Day Years Used Date Smoking Tobacco: Never Smokeless Tobacco: Never Alcohol Use Standard Drinks/Week Comments No 0 (1 standard drink = 0.6 oz pur e alcohol) Sex and Gender Information Value Date Recorded Sex Assigned at Not on file Legal Sex Male 4:43 PM EST Gender Identity Not on file Sexual Orientation Not on file documented as of this encounter Plan of Treatment Upcoming Encounters Date Type Department Care Team (Late st Contact Info) Description 09/05/2024 10:30 AM EDT Office Visit [facility] [address] [phone] Pan Barrett MD [address] [phone] documented as of this encounter Visit Diagnoses Not on filedocumented in this encounter Care Teams Specialty Plant Supervisor Relationship Specialty Start Date End Date René Oliva MD [address] [place] [address] PCP - General Family Medicine 02/10/22 documented as of this encounter
--- OUTSIDE RECORDS SUMMARY | 2024-07-03 17:47 | XMS_ITS | Continuity of Care Document ---
Author Organization [facility] [address] [facility] [address] [place] [address] Phone [phone] Social History Type Date Description Comments Sex Unknown Medical Devices Description No Information Available Encounters Description No Information Available Assessments Description No Information Available Plan of Treatment No Information Available Functional Status Description No Information Available Mental Status Description No Information Available Referrals Description No Information Available
== END 2024-07-03 15:47 | disposition home or self-care (01) ==
PROVIDERS: PCP Family Medicine; Visit Provider Internal Medicine
DX: D64.9 Anemia, unspecified (principal); K59.00 Constipation, unspecified; S06.9X9A Unspecified intracranial injury with loss of consciousness of unspecified duration, initial encounter
CPT/HCPCS: 99213

== ENCOUNTER → 2024-07-03 14:55 | Outpatient (BNVA) | payer MEDICARE, MEDICAID, SELFPAY | PROVIDERS: PCP Family Medicine; Visit Provider Internal Medicine ==

== ENCOUNTER 2024-09-19 11:14 | Outpatient (AMB) | payer MEDICARE, MEDICAID, SELFPAY ==
--- NOTE | 2024-09-19 11:32 | MHC.PC.OV ---
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 Required: No Allergies No Known Allergies Allergy (Unknown, Verified 09/19/24 11:32) none Medication List - Last Reconciled 09/19/24 by René Oliva MD acetaminophen 650 mg (2 x 325 mg) PO Q6H PRN 30 days ascorbic acid (vitamin C) 1 g PO DAILY 90 days bisacodyl 10 mg DC DAILY cholecalciferol (vitamin D3) 50 mcg PO QAM diazepam (Valtoco) mg intranasal disposable gloves (Disposable Latex-Free Gloves) As directed size medium /large docusate sodium (Stool Softener) 200 mg (2 x 100 mg) PO BID ferrous gluconate 324 mg PO DAILY 30 days guaifenesin ER (Mucinex) 600 mg PO Q12H PRN lacosamide 150 mg PO 1 tab in am, 0.5 tabs at noon, 2 tabs in the pm; lactulose (Enulose) 30 mL PO TID 30 days lamotrigine 200 mg PO TID lamotrigine 100 mg PO BEDTIME levetiracetam (Keppra) 1,500 mg PO BID linaclotide (Linzess) 290 mcg PO DAILY magnesium hydroxide (Milk Of Magnesia Concentrated) 30 mL PO BEDTIME PRN magnesium oxide 400 mg PO DAILY methenamine hippurate 1 g PO DAILY 90 days metoclopramide HCl (Reglan) 10 mg PO Q6H PRN 30 days miscellaneous medical supply Extra large briefs 1 month miscellaneous medical supply Complete catheter kit 1 month miscellaneous medical supply Reusable under pads 1 month omeprazole 20 mg PO DAILY oxcarbazepine (Trileptal) 600 mg PO .afternoon oxcarbazepine (Trileptal) 300 mg PO .evening oxcarbazepine (Trileptal) 900 mg PO BEDTIME polyethylene glycol 3350 17 grams PO BID polyethylene glycol 3350 (Miralax) 17 grams PO BID polyethylene glycol 3350 (Miralax) 238 grams PO ONCE risperidone (Risperdal) 2 mg PO BID simethicone 80 mg PO TID sodium phosphates 19-7 gram/118 mL (Fleet Enema) 118 mL DC DAILY PRN starch (thickening) (Thick-It oral powder) 1 ea PO TIDWMEAL underpads As directed Tobacco use date assessed: 10/22/23 Dental Screening Dental Screen Date: 07/30/23 HPI Rebook from 08/22 Wound assessment HPI Details 63 y/o male presents today for a wound assessment. They note wound is on his back side. Wound at R buttock. [facility] Medical History Small bowel obstruction Constipation Seizures TBI (traumatic brain injury) Surgical History History of craniotomy Family History Father Dementia Chronic mental illness Mother Hypertension Social History Housing: Other Housing Other:: Residential Patient Tobacco Use Status: Never used Tobacco e-Cigarette/Vaping Use: Never Used Second Hand Smoke Exposure: No service: No Current occupational status: disabled Current occupational exposures/hazards: No Cognitive needs: Yes Hearing needs: Yes Vision needs: No Questionnaire Thrive Questionnaire Date Thrive assessed: 07/30/23 KRYSTIAN-7 AMB Questionnaire KRYSTIAN-7 Date KRYSTIAN - 7 assessed: 07/30/23 Source: Developed by Drs. Jose Aldana, Stephanie Lin, Shahriar Soto and colleagues, with an educational jose from [employer]. Review of Systems Const Denies chills, Denies fatigue, Denies fever(s), Denies headache(s) and Denies weakness ENT Denies dizziness and Denies headache(s) Card Denies dyspnea Resp Denies cough, Denies dyspnea, Denies wheezing and Denies other (shortness of breath) Musc Denies numbness and Denies tingling Neuro Denies dizziness, Denies headache(s), Denies numbness, Denies tingling and Denies weakness Psych Denies anxiety and Denies depression Endo Denies fatigue Aller/Immun Denies wheezing Physical exam (Primary Care) Vital Signs: Last Vital Signs Temp 98.0 F 09/19/24 11:37 Pulse 72 09/19/24 11:37 Resp 14 09/19/24 11:37 BP 120/80 09/19/24 11:37 Pulse Ox 97 09/19/24 11:37 Oxygen Delivery Method Room Air 09/19/24 11:37 Tobacco/Smoking Status: Tobacco use Status Tobacco use date assessed 10/22/23 09/19/24 11:41 Patient Tobacco Use Status Never used Tobacco 09/19/24 11:41 e-Cigarette/Vaping Use Never Used 09/19/24 11:41 Thrive Assessment: Date of Thrive Assessment Date Thrive assessed 07/30/23 09/19/24 11:41 Const General: well developed; No acute distress Nutritional Appearance: well nourished Orientation/consciousness: patient oriented x3 HENMT Head: Yes normocephalic and Yes atraumatic Eyes General: appearance normal, both eyes and all related structures Pupils: Equal, round and reactive pupils present EOM: EOMs intact bilaterally Resp Effort & Inspection: normal respiratory effort Skin Other: 4cm by 2 cm pressure wound at R buttock. Neuro General: patient oriented x3 and gait normal Cranial nerves: Yes Equal, round and reactive pupils present Psych Affect: normal affect Coding Level of Care Code Est Pt Level 3 (16223) Diagnoses Wound of skin T14.8XXA Assessment & Plan Assessment & Plan (1) Wound of skin: Code(s): T14.8XXA - Other injury of unspecified body region, initial encounter Category: Medical Plan: Nearly?resolved?4?cm?x?2?cm pressure?wound?at?right?buttock Can?use?Desitin?barrier?cream Frequent?position?changes?to?offload?weight Watch?for?increasing?redness drainage, pain or purulence. Medications: New zinc oxide 13% (Desitin Daily Defense) 1 appl topical BID-QID 30 days PRN 113 grams 1RF skin irritation/Skin breakdown/Sore
[2024-09-19 11:37] VITALS: BP 120/80; PULSE 72; RESP 14; TEMP 36.7; O2SAT 97
--- OUTSIDE RECORDS SUMMARY | 2024-09-19 12:31 | XMS_ITS | Continuity of Care Document ---
Author Organization [facility] [address] [facility] [address] [place] [address] Phone [phone] Social History Type Date Description Comments Sex Unknown Medical Devices Description No Information Available Encounters Description No Information Available Assessments Description No Information Available Plan of Treatment No Information Available Functional Status Description No Information Available Mental Status Description No Information Available Referrals Description No Information Available
--- OUTSIDE RECORDS SUMMARY | 2024-09-19 12:32 | XMS_ITS | Clinical Summary ---
Author Organization [facility] Address [address] [place] [phone] Phone Care Team Providers Care Division Chair Name Role Phone René Oliva MD Primary Care Provider Allergies No known active allergies Medications Sennosides 8.6 MG capsule Take 2 capsules by mouth 2 (two) times a day Active risperiDONE (RisperDAL M-TABS) 1 MG dispersible tablet Take 1.5 tablets by mouth 1.5mg Active OXcarbazepine (TRILEPTAL) 300 MG tablet Take 900 mg by mouth every evening and at bedtime 09/05/19 20 Active magnesium oxide (MAG-OX) 400 MG tablet Take 400 mg by mouth 04/29/20 20 Active lamoTRIgine (LaMICtal) 200 MG dispersible tablet Take 200 mg by mouth in the morning and 200 mg at noon and 200 mg in the evening. Active levETIRAcetam (KEPPRA) 500 MG tablet 1,000 mg in the morning and 1,000 mg in the evening. 06/24/19 22 Active guaiFENesin (MUCINEX) 600 MG 12 hr tablet Take 600 mg by mouth 08/09/19 21 Active ferrous sulfate 325 (65 Fe) MG tablet Take 325 mg by mouth 06/05/19 20 Active acetaminophen (TYLENOL 8 HOUR) 650 MG [...] capsule Take by mouth Active nystatin (MYCOSTATIN) 267675 UNIT/ML suspension 02/10/20 22 Active simethicone (MYLICON) 80 MG chewable tablet [...] TABLET BY MOUTH ONCE DAILY 28 tablet 09/15/19 25 Active sodium chloride 1 g tablet TAKE 1 TABLET BY MOUTH ONCE DAILY 28 tablet 11 10/14/19 24 025 Discontinued Active Problems Problem Noted Date Diagnosed Date [...] 06/25/2021 Hyperlipidemia 06/25/2021 H/O Spinal surgery 06/25/2021 Hypo-osmolality and hyponatremia 06/25/2021 Traumatic brain injury 06/25/2021 Encounters Date Type Department Care Team Description 09/13/2024 Refill [facility] 200 [place] [address] Zenon Villanueva MD 09/05/2024 10:30 AM EDT Office Visit [facility] [place] [address] Pan Barrett MD Hypo-osmolality and hyponatremia (Primary Dx) from Last 3 Months Immunizations Immunization Administration Dates Next Due Influenza, Unspecified 04/12/2019,02/14/2018,,07/04/2016 [...] Sign Reading Time Taken Comments Blood Pressure 126/60 09/05/2024 10:09 AM EDT Pulse 56 09/05/2024 10:09 AM EDT Temperature - - Respiratory Rate - - Oxygen Saturation 96% 09/05/2024 10:09 AM EDT Inhaled Oxygen Concentration - - Weight 85.7 kg (189 lb) 09/05/2024 10:09 AM EDT Height - - Body Mass Index - - Plan of Treatment Health Maintenance Due Date Last Done Comments Colorectal Cancer Screening: Annual FOBT 2009 Colorectal Cancer Screening: Colonoscopy 2009 Colorectal Cancer Screening: Sigmoidoscopy 2009 Pneumococcal Vaccine: 50+ Years (3 of 3 - PCV) 12/08/2015 12/07/2014, 11/21/2009 Influenza Vaccine (Season Ended) 2025 04/12/2019, 02/14/2018, 02/24/2017, Additional history exists Pneumococcal Vaccine: Peds (0 to 5 Years) and At-Risk Patients (6 to 49 Years) Discontinued 12/07/2014, 11/21/2009 Hepatitis B Vaccine Aged Out No longe r eligible based on patient's age to complete this topic Procedures Procedure Name Priority Date/Time Associated Diagnosis Comments ALT EXT LABS Routine 07/16/2024 from Last 3 Months Results * (ABNORMAL) ALT EXT LABS (07/16/2024) WBC 5.3(A) 3.3 - 10.0 10*3/ML Red Blood Cell Count 4.43 Hemoglobin 13.3(A) 13.5 - 17.5 Hematocrit 40.1(A) 41.0 - 53.0 Platelets 238 150 - 399 10*3/UL BUN 9 4 - 21 mg/dL Creatinine 0.42(A) 0.60 - 1.30 mg/dL Albumin 3.9 3.5 - 5.0 g/dL Calcium 8.9 8.7 - 10.7 mg/dL Sodium 134(A) 137 - 147 Potassium 4.4 3.4 - 5.5 Chloride 101.0 99.0 - 108.0 eGFR Non-Afr South Korean 121 07/16/2024 us Historical Provider LAB BLOOD ORDERABLES Ambar l Result from Last 3 Months Insurance Medicare Medicaid [place] Medicare Member Subscriber Plan / Payer (Ef fective 2003-Present) Name:Gen Bartolomearo Member ID:[id number] Relation to Subscriber:Self Name:Andrei Mancuso Subscriber ID:[id number] Payer ID:Not on file Group ID:Not on file Type:Not on file Address: [place] [id number] Medicaid [place] Care Teams Division Chair Relationship Specialty Start Date End Date René Oliva MD [address] [place] [id number] PCP - General Family Medicine 02/10/22
--- OUTSIDE RECORDS SUMMARY | 2024-09-19 12:32 | XMS_ITS | Encounter Summary ---
Author Organization [facility] Address 100 [facility] 200 [place] [address] Phone Care Team Providers Care Retail Sales Associate Name Role Phone René Oliva MD Primary Care Provider Reason for Visit * Reason Comments Med Refill Encounter Details Date Type Department Care Team (Late st Contact Info) Description 02/09/2023 [facility] [address] [place] [address] Antelmo Davis MD Social History Tobacco Use [...] as of this encounter Plan of Treatment Not on file documented as of this encounter Visit Diagnoses Not on filedocumented in this encounter Care Teams Retail Sales Associate Relationship Specialty Start Date End Date René Oliva MD [address] [place] [id number] PCP - General Family Medicine 02/10/22 documented as of this encounter
--- OUTSIDE RECORDS SUMMARY | 2024-09-19 12:32 | XMS_ITS | Encounter Summary ---
Author Organization [facility] Address [address] [address] Phone Care Team Providers Care Arts Administrator Or Manager Name Role Phone René Oliva MD Primary Care Provider Reason for Visit * Reason Comments Med Refill Encounter Details Date Type Department Care Team ([facility] st Contact Info) Description 09/13/2024 Refill [facility] 100 [facility] 200 [place] [address] Zenon Villanueva MD [address] [address] Social History Tobacco Use Types Packs/Day Years [...] on filedocumented in this encounter Care Teams Arts Administrator Or Manager Relationship Specialty Start Date End Date René Oliva MD [address] [place] [address] PCP - General Family Medicine 02/10/22 documented as of this encounter
--- OUTSIDE RECORDS SUMMARY | 2024-09-19 12:32 | XMS_ITS | Clinical Summary ---
Author Organization [facility] Address [address] [place] [address] Care Team Providers Care Interactive Media Marketing Director Name Role Phone René Oliva MD Primary Care Provider Medications senna 8.6 mg tablet Take 2 tablets (17.2 mg total) by mouth 1 (one) time each day. 180 tablet 1 5 Active metoclopramide (REGLAN) 10 mg tablet Take 1 tablet (10 mg total) by mouth 4 (four) times a day. 112 tablet 3 5 Active senna 8.6 mg tablet TAKE 2 TABLETS (17.2MG) BY MOUTH TWICE A DAY 112 tablet 5 09/08/19 25 Discontinu ed(Reorder ) metoclopramide (REGLAN) 10 mg tablet Take 1 tablet (10 mg total) by mouth 4 (four) times a day. 4 09/08/19 25 Discontinu ed(Reorder ) Encounters Date Type Department Care Team Description 09/07/2024 Telephone [facility] - [place] [address] [facility] 175 [facility] [address] [place] [address] Robina Tolentino PA refill request from Last 3 Months Social History Tobacco Use Types Packs/Day Years Used Date Smoking Tobacco: Never Assessed Sex and Gender Information Value Date Recorded Sex Assigned at Not on file Legal Sex Male 9:51 AM EST Gender Identity Not on file Sexual Orientation Not on file Last Filed Vital Signs Vital Sign Reading Time Taken Comments Blood Pressure 120/80 09/23/2022 3:03 PM EDT Pulse 74 09/23/2022 3:03 PM EDT Temperature - - Respiratory Rate - - Oxygen Saturation - - Inhaled Oxygen Concentration - - Weight 95.7 kg (211 lb) 11/12/2022 10:50 AM EDT Height - - Body Mass Index - - Plan of Treatment Upcoming Encounters Date Type Department Care Team (Late st Contact Info) Description 11/22/2024 10:50 AM EDT Office Visit [facility] - [place] [address] [facility] [address] [facility] [address] [place] [phone] Robina Tolentino PA [address] [facility] [address] [place] [address] Health Maintenance Due Date Last Done Comments DTaP,Tdap,and Td Vaccines (1 - Tdap) 12/22/1979 Pneumococcal Vaccine: 50+ Ye ars (1 of 1 - PCV) 2010 Zoster Vaccines (1 of 2) 2010 Cholesterol Screening (Lipid Panel) 03/31/2022 Colorectal Cancer Screening: Colonoscopy 03/31/2022 Depression Screening 03/31/2022 HIV Screening 03/31/2022 Hepatitis C Screening 03/31/2022 Social Influencers of Health Screening 03/31/2022 COVID-19 Vaccine (1 - 2023-2 5 season) 2024 Influenza Vaccine (Season Ended) 2025 RSV Immunization Adult Patie nts (1 - 1-dose 75+ series) 12/22/2035 HIB Vaccines Aged Out No longer eligi ble based on patient's age to complete this topic HPV Vaccines Aged Out No longer eligi ble based on patient's age to complete this topic Hepatitis A Vaccines Aged Out No long er eligible based on patient's age to complete this topic Hepatitis B Vaccines Aged Out No long er eligible based on patient's age to complete this topic IPV Vaccines Aged Out No longer eligi ble based on patient's age to complete this topic MMR Vaccines Aged Out No longer eligi ble based on patient's age to complete this topic Meningococcal ACWY Vaccine Aged Out N o longer eligible based on patient's age to complete this topic Meningococcal B Vaccine Aged Out No l onger eligible based on patient's age to complete this topic Pneumococcal Vaccine: Pediat rics (0 to 5 Years) and At-Risk Patients (6 to 64 Years) Aged Out No longer eligible b ased on patient's age to complete this topic RSV Immunization Patients Un carlos alberto 20 months Aged Out No longer eligible b ased on patient's age to complete this topic Varicella Vaccines Aged Out No longer eligible based on patient's age to complete this topic Care Teams Interactive Media Marketing Director Relationship Specialty Start Date End Date René Oliva MD [address] [place] [address] Dr Dominik [place] PCP - General 04/17/21
--- OUTSIDE RECORDS SUMMARY | 2024-09-19 12:32 | XMS_ITS | Encounter Summary ---
Author Organization [facility] Address [address] [place] [address] Care Team Providers Care Technical Service Representative Name Role Phone René Oliva MD Primary Care Provider [phone] Reason for Visit * Reason Onset Date Comments refill request 09/07/2024 Encounter Details Date Type Department Care Team (Late st Contact Info) Description 09/07/2024 Telephone Gastroenterology - [place] [address] [place] [address] Robina Tolentino PA [address] [facility] [address] [place], [place] [phone] refill request Social History Tobacco Use Types Packs/Day Years Used Date Smoking Tobacco: Never Assessed Sex and Gender Information Value Date Recorded Sex Assigned at Not on file Legal Sex Male 9:51 AM EST Gender Identity Not on file Sexual Orientation Not on file documented as of this encounter Ordered Prescriptions Prescription Sig Dispense Quantity Refills Last Filled Start Date End Date metoclopramide (REGLAN) 10 mg tablet Take 1 tablet (10 mg total) by mouth 4 (four) times a day. 112 tablet 3 09/07/2024 senna 8.6 mg tablet Take 2 tablets (17.2 mg total) by mouth 1 (one) time each day. 180 tablet 1 09/07/2024 documented in this encounter Progress Notes * ZACH Peters - 09/07/2024 3:21 PM EDT ok * Nieves Benitez MA - 09/07/2024 3:04 PM EDT Pa - 09/03/2022 Nov - 11/22/2024 * Sushma Beal - 09/07/2024 1:43 PM EDT Patient's cancer program director calling states patient needs a refill for senna 8.6 mg tablet and [id number] mg. [facility]. documented in this encounter Plan of Treatment Upcoming Encounters Date Type Department Care Team (Late st Contact Info) Description 11/22/2024 10:50 AM EDT Office Visit Gastroenterology - [place] [address] [facility] [address] [place] [phone] Robina Tolentino PA [address] [address] [place] [address] documented as of this encounter Visit Diagnoses Not on filedocumented in this encounter Discontinued Medications Medication Sig Discontinue Reason Start Date End Da te senna 8.6 mg tablet TAKE 2 TABLETS (17.2MG) BY MOUTH TWICE A DAY Reorder 07/19/2024 09/07/2024 metoclopramide (REGLAN) 10 mg tablet Take 1 tablet (10 mg total) by mouth 4 (four) times a day. Reorder 02/03/2024 09/07/2024 documented as of this encounter Historical Medications * This list may reflect changes made after this encounter. metoclopramide (REGLAN) 10 mg tablet Take 1 tablet (10 mg total) by mouth 4 (four) times a day. 02/03/2024 09/07/2024 added in this encounter Care Teams Technical Service Representative Relationship Specialty Start Date End Date René Oliva MD [address] [place] [address] Dr Dominik [place] PCP - General 04/17/21 documented as of this encounter
== END 2024-09-19 12:08 | disposition home or self-care (01) ==
LOC: HO.HMCFM 11:15
PROVIDERS: PCP Family Medicine; Visit Provider Family Medicine
DX: T14.8XXA Other injury of unspecified body region, initial encounter (principal)

== ENCOUNTER → 2024-09-19 11:14 | Outpatient (BNVA) | payer MEDICARE, MEDICAID, SELFPAY | PROVIDERS: PCP Family Medicine; Visit Provider Family Medicine | DX: S31.819D Unspecified open wound of right buttock, subsequent encounter (principal) | CPT/HCPCS: 99212 ==

== ENCOUNTER 2024-12-26 12:02 | Outpatient (AMB) | payer MEDICARE, MEDICAID, SELFPAY ==
--- NOTE | 2024-12-26 12:08 | MHC.PC.OV ---
Vital Signs 12/26/24 12:18 Height 5 ft 10 in Weight 178 lb BMI 25.5 BP 124/84 Blood Pressure Location Lt brachial Position Sitting Respiration 14 Pulse 72 Pulse Source Pulse Oximeter Temp 98.5 F Temp Source Temporal Artery Scan Pulse Oximetry (%) 95 Oxygen Delivery Method Room Air Intake Visit Reasons: f/u chronic conditions Intake Note: Yi presents in the office today for a follow up to multiple conditions. Allergies No Known Allergies Allergy (Unknown, Verified 12/26/24 12:10) none Medication List - Last Reconciled 12/26/24 by René Oliva MD acetaminophen 650 mg (2 x 325 mg) PO Q6H PRN 30 days ascorbic acid (vitamin C) 1 g PO DAILY 90 days bisacodyl 10 mg IN DAILY cholecalciferol (vitamin D3) 50 mcg PO QAM diazepam (Valtoco) 5 mg (0.1 mL) intranasal DAILY 30 days disposable gloves (Disposable Latex-Free Gloves) As directed size medium /large docusate sodium (Stool Softener) 200 mg (2 x 100 mg) PO BID ferrous gluconate 324 mg PO DAILY 30 days guaifenesin ER (Mucinex) 600 mg PO Q12H PRN lacosamide 150 mg PO 1 tab in am, 0.5 tabs at noon, 2 tabs in the pm; lactulose (Enulose) 30 mL PO TID PRN lamotrigine 200 mg PO TID lamotrigine 100 mg PO BEDTIME levetiracetam (Keppra) 1,500 mg PO BID linaclotide (Linzess) 290 mcg PO DAILY magnesium hydroxide (Milk Of Magnesia Concentrated) 30 mL PO BEDTIME magnesium oxide 400 mg PO DAILY methenamine hippurate 1 g PO DAILY 90 days metoclopramide HCl (Reglan) 10 mg PO ONCE miscellaneous medical supply Extra large briefs 1 month miscellaneous medical supply Complete catheter kit 1 month miscellaneous medical supply Reusable under pads 1 month omeprazole 20 mg PO DAILY oxcarbazepine (Trileptal) 600 mg PO .afternoon oxcarbazepine (Trileptal) 300 mg PO .evening oxcarbazepine (Trileptal) 900 mg PO BEDTIME polyethylene glycol 3350 17 grams PO BID risperidone (Risperdal) 2 mg PO BID simethicone 80 mg PO TID sodium phosphates 19-7 gram/118 mL (Fleet Enema) 118 mL IN DAILY PRN starch (thickening) (Thick-It oral powder) 1 ea PO TIDWMEAL underpads As directed zinc oxide 13% (Desitin Daily Defense) 1 appl topical BID PRN 30 days Tobacco use date assessed: 12/26/24 Dental Screening Dental Screen Date: 12/26/24 Did you have a dental visit in the last 12 months?: Yes Did you have a dental problem in the last 6 months where you did not have access to dental care?: No Was dental information given to patient?: Patient has dentist HPI f/u chronic conditions HPI Details 64 y/o male presents to f/u chronic conditions. Recent ED visit admit date 12/03/24 disc date 12/04/24. Had been to the hospital after he had a seizure that morning that lasted approximately 1 minute, following seizure he was coughing and choking oncontrollably . CT abdomen showed stool impaction and question of urinary outlet obstruction. Patient was provided with his seizure medications. Was also given antibiotics for concern of aspiration pneumonia and this was discontinued after CT scan. Has complaints of a fungal infection of skin of his R elbow. [facility] Medical History Small bowel obstruction Constipation Seizures TBI (traumatic brain injury) Surgical History History of craniotomy Family History Father Dementia Chronic mental illness Mother Hypertension Social History (Updated 12/26/24 @ 12:18 by Roseanna Spear MA) Housing: Other Housing Other:: Long Term Alcohol intake: never Patient Tobacco Use Status: Never used Tobacco e-Cigarette/Vaping Use: Never Used Second Hand Smoke Exposure: No Use of substances other than those prescribed or required for medical reasons: No service: No Current occupational status: disabled Current occupational exposures/hazards: No Cognitive needs: Yes Hearing needs: Yes Vision needs: No Questionnaire PHQ-9 Over the last 2 weeks, how often have you been bothered by any of the following problems? 1. Little interest or pleasure in doing things: not at all 2. Feeling down, depressed, or hopeless: not at all 3. Trouble falling or staying asleep, or sleeping too much: not at all 4. Feeling tired or having little energy: not at all 5. Poor appetite or overeating: not at all 6. Feeling bad about yourself - or that you are a failure or have let yourself or your family down: not at all 7. Trouble concentrating on things, such as reading the newspaper or watching television: not at all 8. Moving or speaking so slowly that other people could have noticed. Or the opposite - being so fidgety or restless that you have been moving around a lot more than usual: not at all 9. Thoughts that you would be better off or of hurting yourself in some way: not at all Total score: 0 Source: Developed by Drs. Jose Aldana, Stephanie Lin, Shahriar Soto and colleagues, with an educational jose from [employer]. Thrive Questionnaire Date Thrive assessed: 07/30/23 I am a: Parent/Caregiver What is your living situation today?: I have a steady place to live Within the past 12 months, did the food you bought not last and you didn't have the money to get more?: Never true Within the past 12 months, did you worry whether your food would run out before you got money to buy more?: Never true Do you have trouble paying for medicines?: No Do you have trouble getting transportation to medical appointments?: No Do you have trouble paying your heating and electricity bill?: No Do you have trouble taking care of your child, family member or friend?: No Do you have trouble with day-to-day activities such as bathing, preparing meals, shopping, managing finances, etc.?: No Are you currently unemployed and looking for a job?: No Are you interested in more education?: No Please select the resources that you would like help with: None Currently or been in a relationship where the following occur: No concerns reported THRIVE Score: 0 AUDIT C Alcohol Use Questionnaire (AUDIT-C) 1. How often do you have a drink containing alcohol?: Never Total Score: 0 KRYSTIAN-7 AMB Questionnaire KRYSTIAN-7 Date KRYSTIAN - 7 assessed: 07/30/23 Feeling nervous, anxious, or on edge: 0 = Not at all Not being able to stop or control worryin = Not at all Worrying too much about different things: 0 = Not at all Trouble relaxin = Not at all Being so restless that it is hard to sit still: 0 = Not at all Becoming easily annoyed or irritable: 0 = Not at all Feeling afraid as if something awful might happen: 0 = Not at all Total KRYSTIAN-7 score (0-4 normal; 5-9 mild; 10-14 moderate; 15-21 severe): 0 Source: Developed by Drs. Jose Aldana, Stephanie Lin, Shahriar Soto and colleagues, with an educational jose from [employer]. Review of Systems Const Denies chills, Denies fatigue, Denies fever(s), Denies headache(s) and Denies weakness ENT Denies dizziness and Denies headache(s) Card Denies dyspnea Resp Denies cough, Denies dyspnea, Denies wheezing and Denies other (shortness of breath) Musc Denies numbness and Denies tingling Neuro Denies dizziness, Denies headache(s), Denies numbness, Denies tingling and Denies weakness Psych Denies anxiety and Denies depression Endo Denies fatigue Aller/Immun Denies wheezing Physical exam (Primary Care) Vital Signs: Last Vital Signs Temp 98.5 F 12/26/24 12:18 Pulse 72 12/26/24 12:18 Resp 14 12/26/24 12:18 BP 124/84 12/26/24 12:18 Pulse Ox 95 12/26/24 12:18 Oxygen Delivery Method Room Air 12/26/24 12:18 BMI result Body Mass Index 25.5 Tobacco/Smoking Status: Tobacco use Status Tobacco use date assessed 12/26/24 12/26/24 12:22 Patient Tobacco Use Status Never used Tobacco 12/26/24 12:18 e-Cigarette/Vaping Use Never Used 12/26/24 12:18 PHQ-9: PHQ-9 Score PHQ-9: Total score 0 12/26/24 12:52 Thrive Assessment: Date of Thrive Assessment Date Thrive assessed 07/30/23 12/26/24 12:09 Currently or been in a relationship where the following occur: No concerns reported Const General: well developed; No acute distress Nutritional Appearance: well nourished HENMT Head: Yes normocephalic and Yes atraumatic Eyes General: appearance normal, both eyes and all related structures Pupils: Equal, round and reactive pupils present EOM: EOMs intact bilaterally Resp Effort & Inspection: normal respiratory effort Auscultation: clear to auscultation bilaterally Cardio Rate: regular rate Rhythm: regular rhythm Heart sounds: S1 normal heart sound present, S2 normal heart sound present, no gallops, no murmurs and no rubs Skin Other: Fungal infection of skin at R anterior elbow Neuro Other: Wheelchair bound. Non-verbal Cranial nerves: Yes Equal, round and reactive pupils present Psych Affect: normal affect Coding Level of Care Code Est Pt Level 4 (71200) Diagnoses Seizures R56.9 Constipation K59.00 Fungal infection of skin B36.9 Assessment & Plan Assessment & Plan (1) Seizures: Code(s): R56.9 - Unspecified convulsions Category: Medical (2) Constipation: Code(s): K59.00 - Constipation, unspecified Category: Medical (3) Fungal infection of skin: Code(s): B36.9 - Superficial mycosis, unspecified Category: Medical Plan Patient was seen in early December for seizure activity. There was also concern for aspiration pneumonia. Head and chest CTs were negative. CT abdomen showed stool impaction and question of urinary outlet obstruction. Patient was provided with his seizure medications. Was also given antibiotics for concern of aspiration pneumonia and this was discontinued after CT scan. Follow-up with Neurology regarding breakthrough seizures. Patient frequently has issues with constipation. 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 Will send script for clotrimazole cream Avoid excess moisture and use barrier such as gauze dressing Orders: Referrals Urology Referral René Oliva MD N32.0 - Bladder-neck obstruction, R32 - Unspecified urinary incontinence, R33.9 - Retention of urine, unspecified Medications: New clotrimazole 1% 1 appl topical BID 45 grams 1RF 2 weeks René Oliva MD Changed From magnesium hydroxide (Milk Of Magnesia Concentrated) 30 mL PO BEDTIME PRN 1,000 mL 0RF constipation To magnesium hydroxide (Milk Of Magnesia Concentrated) Daily 30 mL PO BEDTIME Laverne Spangler MD From metoclopramide HCl (Reglan) 10 mg PO Q6H 30 days PRN 60 tabs 1RF nausea and vomiting To metoclopramide HCl (Reglan) four times a day 10 mg PO ONCE René Oliva MD From lactulose (Enulose) 30 mL PO TID 30 days 2,700 mL 2RF for constipation K59.01 - Slow transit constipation To lactulose (Enulose) 30 mL PO TID PRN K59.01 - Slow transit constipation René Oliva MD
[2024-12-26 12:18] VITALS: BP 124/84; PULSE 72; RESP 14; TEMP 36.9; O2SAT 95; BMI 25.5
--- OUTSIDE RECORDS SUMMARY | 2024-12-26 12:54 | XMS_ITS | Encounter Summary ---
Author Organization [facility] Address 100 [facility] [address] [place] [address] Phone Care Team Providers Care Cuff Turner Machine Operator Name Role Phone René Oliva MD Primary Care Provider Reason for Visit * Reason Comments Med Refill Encounter Details Date Type Department Care Team (Late st Contact Info) Description 02/09/2023 Refill [facility] [address] [place] [address] Antelmo Davis MD Social History [...] on filedocumented in this encounter Care Teams Cuff Turner Machine Operator Relationship Specialty Start Date End Date René Oliva MD [address] [place] [address] PCP - General Family Medicine 02/10/22 documented as of this encounter
--- OUTSIDE RECORDS SUMMARY | 2024-12-26 12:54 | XMS_ITS | Clinical Summary ---
Author Organization [facility] Address [address] [address] Phone Care Team Providers Care Documentation Analyst Name Role Phone René Oliva MD Primary [...] capsule Take by mouth Active nystatin (MYCOSTATIN) 549244 UNIT/ML suspension 2 Active simethicone (MYLICON) 80 [...] BY MOUTH ONCE DAILY 28 tablet 11 5 Active Active Problems Problem Noted Date Diagnosed [...] and hyponatremia 06/25/2021 Traumatic brain injury 06/25/2021 Immunizations Immunization Administration Dates Next Due Influenza, [...] PCV) 12/08/2015 12/07/2014, 11/21/2009 Influenza Vaccine (#1) 2025 9, 02/14/2018, 02/24/2017, Additional history exists Pneumococcal Vaccine: Peds (0 to 5 Years) and At-Risk Patients (6 to 49 Years) Discontinued 12/07/2014, 11/21/2009 Hepatitis B Vaccine Aged Out No longe r eligible based on patient's age to complete this topic Insurance Medicare Medicaid [place] Medicare Medicaid [place] Care Teams Documentation Analyst Relationship Specialty Start Date End Date René Oliva MD [address] [place] [address] PCP - General Family Medicine 02/10/22
--- OUTSIDE RECORDS SUMMARY | 2024-12-26 12:54 | XMS_ITS | Clinical Summary ---
Author Organization [facility] Address 175 [place] [address] Phone Care Team Providers Care Social Studies Teacher Name Role Phone René Oliva MD Primary Care Provider Medications senna 8.6 mg tablet Take 2 tablets (17.2 mg total) by mouth 2 (two) times a day. 360 tablet 1 5 Active metoclopramide (REGLAN) 10 mg tablet Take 1 tablet (10 mg total) by mouth 4 (four) times a day for 15 days. 30 tablet 5 12/27/19 25 Active metoclopramide (REGLAN) 10 mg tablet Take 1 tablet (10 mg total) by mouth 4 (four) times a day. 112 tablet 3 5 12/12/19 25 Discontinued Encounters Date Type Department Care Team Description [facility] [address] [address] Robina Tolentino PA 11/22/2024 Telephone Gastroenterology [facility] [address] [address] Robina Tolentino PA from Last 3 Months Social History Tobacco [...] Care Team (Late st Contact Info) Description 02/26/2025 11:30 AM EDT Office Visit Gastroenterology - [place] 175 [facility] 175 [facility] [address] [place] [address] Robina Tolentino PA [address] [place] [address] Health Maintenance Due Date Last Done Comments DTaP,Tdap,and Td Vaccines (1 - Tdap) 12/22/1979 Pneumococcal Vaccine: 50+ Ye ars (1 of 1 - PCV) 2010 Zoster Vaccines (1 of 2) 2010 Cholesterol Screening (Lipid Panel) 03/31/2022 Colorectal Cancer Screening: Colonoscopy 03/31/2022 HIV Screening 03/31/2022 Hepatitis C Screening 03/31/2022 Medicare Annual Wellness Visit 03/31/2022 Social Influencers of Health Screening 03/31/2022 COVID-19 Vaccine (1 - 2023-2 5 season) 2024 Depression Screening 05/03/2024 Influenza Vaccine (#1) 2025 RSV Immunization Adult Patie nts (1 [...] patient's age to complete this topic Insurance MEDICARE MEDICAID - [place] Care Teams Social Studies Teacher Relationship Specialty Start Date End Date René Oliva MD [address] [place] [address] Dr Crawford [place] PCP - General 04/17/21
--- OUTSIDE RECORDS SUMMARY | 2024-12-26 12:54 | XMS_ITS | Continuity of Care Document ---
Author Organization [facility] [address] [facility] [address] [place] [address] Phone [phone] Social History Type Date Description Comments Sex Male Sex Unknown Medical Devices Description No Information Available Encounters Description No Information Available Assessments Description No Information Available Plan of Treatment No Information Available Functional Status Description No Information Available Mental Status Description No Information Available Referrals Description No Information Available
--- OUTSIDE RECORDS SUMMARY | 2024-12-26 12:54 | XMS_ITS | Encounter Summary ---
Author Organization [facility] Address [address] [place] [address] Care Team Providers Care Director Emergency Name Role Phone René Oliva MD Primary Care Provider Reason for Visit * Reason Onset Date Comments Appointment 11/22/2024 Encounter Details Date Type Department Care Team (Late st Contact Info) Description 11/22/2024 Telephone Gastroenterology - [place] [address] [place] [address] Robina Tolentino PA [address] [place] [phone] Social History Tobacco Use Types Packs/Day Years Used Date Smoking Tobacco: Never Assessed Sex and Gender Information Value Date Recorded Sex Assigned at Not on file Legal Sex Male 9:51 AM EST Gender Identity Not on file Sexual Orientation Not on file documented as of this encounter Progress Notes * Irene Herring MA - 11/22/2024 3:32 PM EDT Placed on waiting list * Hillary Clifton - 11/22/2024 11:27 AM EDT Patient came in for his appointment today 11/22 with Concepcion and was late due to his transportation from [facility] facility. Patient rescheduled to Feb 26 and would like to try to be seen sooner (Chronic constipation) if any cancellations and please call electronic controls repairer supervisor Gio Rodriguez at [phone] documented in this encounter Plan of Treatment Upcoming Encounters Date Type Department Care Team (Late st Contact Info) Description 02/26/2025 11:30 AM EDT Office Visit G[facility]ology - [place] [address] [facility] [place] [address] Robina Tolentino PA [address] [place] [phone] documented as of this encounter Visit Diagnoses Not on filedocumented in this encounter Care Teams Director Emergency Relationship Specialty Start Date End Date René Oliva MD [address] [place] [address] Dr Beltre [address] [place] [address] PCP - General 04/17/21 documented as of this encounter
== END 2024-12-26 13:05 | disposition home or self-care (01) ==
LOC: HO.HMCFM 12:02
PROVIDERS: PCP Family Medicine; Visit Provider Family Medicine
DX: R56.9 Unspecified convulsions (principal); K59.00 Constipation, unspecified; B36.9 Superficial mycosis, unspecified

== ENCOUNTER → 2024-12-26 12:02 | Outpatient (BNVA) | payer MEDICARE, MEDICAID, SELFPAY | PROVIDERS: PCP Family Medicine; Visit Provider Family Medicine | DX: R56.9 Unspecified convulsions (principal); K59.00 Constipation, unspecified; B36.9 Superficial mycosis, unspecified | CPT/HCPCS: 99212 ==

== ENCOUNTER 2025-03-02 09:42 | Outpatient (AMB) | payer MEDICARE, MEDICAID, SELFPAY ==
--- NOTE | 2025-03-02 09:44 | A.OFFPC_ITS ---
Vital Signs 3 03/02/25 09:48 Height 5 ft 10 in BMI Reason not done Patient refused/unable BP 100/68 Blood Pressure Location Lt brachial Position Sitting Respiration 12 Pulse 69 Pulse Source Pulse Oximeter Temp 97.2 F Temp Source Oral Pulse Oximetry (%) 98 Oxygen Delivery Method Room Air Intake Visit Reasons: Seizure Intake Note: ED C follow up on seizure. Extract Wringer Required: No Allergies No Known Allergies Allergy (Unknown, Verified 03/02/25 09:45) none Tobacco use date assessed: 03/02/25 Fall risk assessment: No Falls in past year Last assessed Fall Risk: 03/02/25 Dental Screening Dental Screen Date: 03/02/25 Did you have a dental visit in the last 12 months?: Yes Did you have a dental problem in the last 6 months where you did not have access to dental care?: No Was dental information given to patient?: Patient has dentist HPI HPI Comments 2 History of Present Illness0 Details History of Present Illness The patient is a 64-year-old male presenting for a follow-up visit after an emergency room visit for a seizure. Seizure disorder: - The patient has a known seizure disord er and was seen at [facility] on February 22 for a seizure. - The recent episode was described as vi olent and was associated with vomiting. - There have been no further seizures si nce the ER visit. - During the ER visit, there was concern for aspiration, but a chest x-ray was negative. - No changes were made to his medication s during the hospitalization. - The patient has a habit of pocketing f ood and has a baseline cough where he spits out phlegm, which can be mistaken for vomiting. - Staff reports no fevers or excessive c oughing at the senior care. Constipation: - A refill for a stool softener was requ ested as the patient is out of his medication today. - The medication is docusate, and the st aff reports the dose is two 200 mg tablets taken twice a day Past Medical History - Seizure disorder Review of Systems - Constitutional: Denies fever. - Respiratory: Reports a baseline cough with phlegm production related to food pocketing. Denies any excessive coughing. - Neurological: History of a recent seiz ure. Denies any subsequent seizure activity. - Gastrointestinal: Reports emesis durin g the recent seizure. Staff requests a stool softener refill, indicating constipation. Reports pocketing food. Physical Exam General: well nourished, in no acute distress. Chronically ill appearing, sitting in w/c Head: Normocephalic, atraumatic. Lungs: He did not follow commands of taking deep breaths, however from what i was able to hear, Clear to auscultation bilaterally. No rales, rhonchi or wheeze noted. Good air flow in all andrews. There was no coughing or tachypnea. 02 sats WNL. Heart: Mildy tachycardic, Regular rhythm. No murmurs, click, rubs or gallops are noted. Musculoskeletal: WC bound with contractures Psych: Mood and affect appropriate Results - Imaging: - Chest x-ray on February 22 was negati ve. Medical Decision Making The patient is a 64-year-old male with a known seizure disorder, who presents for a follow-up after an ER visit on February 22 for a seizure. The recent episode was described as violent with emesis, which prompted a workup for aspiration that was negative per chest x-ray. He has returned to his baseline health with no further seizure activity reported. His lung exam today is clear, and his oxygen levels are good, which is reassuring. The reported coughing appears to be a chronic issue related to food pocketing rather than an acute post-seizure complication. No changes were made to his antiepileptic medications in the ER, and given his stability, none are indicated today. A refill for docusate 200 mg, two tablets twice daily, will be sent to his preferred pharmacy to manage his constipation. He will follow up with his primary care provider, Dr. Oliva, in April for routine care. Plan 1. Seizure Disorder - As there have been no further seizures since the ER visit and no medication changes were made, the patient will continue his current antiepileptic medication regimen. - The patient is clear from a respirator y standpoint, with a negative chest x- ray and clear lung examination, alleviating concerns of aspiration from the recent seizure. - The patient will follow up with his [facility] care provider, Dr. Oliva, in April. - the staff should monitor and report an y sx suggestive of pneumonia 2. Constipation - A prescription for docusate will be re filled. - The dose will be clarified to two 200 mg tablets taken twice daily. - The prescription will be sent to [place] pharmacy as requested. 3. Preventative Care - Influenza vaccine was offered but decl ined by the senior care staff at this visit. Consent Patient was informed and verbally consented to the use of an ambient scribe for clinic note documentation during this visit. Total time spent caring for the patient today was 30 minutes. This includes time spent before the visit reviewing the chart, time spent during the visit, and time spent after the visit on documentation, reviewing laboratory results, diagnostic imaging, medications, performing a medically necessary evaluation, counseling on diagnoses, care coordination, ordering appropriate tests, ordering appropriate medications, review of tests performed by other providers, reporting test results with the patient, communication with other healthcare providers. [facility] Medical History Small bowel obstruction Constipation Seizures TBI (traumatic brain injury) Surgical History History of craniotomy Family History Father Dementia Chronic mental illness Mother Hypertension Social History (Updated 12/26/24 @ 12:18 by Roseanna Spear MA) Housing: Other Housing Other:: Prison Alcohol intake: never Patient Tobacco Use Status: Never used Tobacco e-Cigarette/Vaping Use: Never Used Second Hand Smoke Exposure: No service: No Current occupational status: disabled Current occupational exposures/hazards: No Cognitive needs: Yes Hearing needs: Yes Vision needs: No Questionnaire Thrive Questionnaire Date Thrive assessed: 12/26/24 I am a: Parent/Caregiver What is your living situation today?: I have a steady place to live Within the past 12 months, did the food you bought not last and you didn't have the money to get more?: Never true Within the past 12 months, did you worry whether your food would run out before you got money to buy more?: Never true Do you have trouble paying for medicines?: No Do you have trouble getting transportation to medical appointments?: No Do you have trouble paying your heating and electricity bill?: No Do you have trouble taking care of your child, family member or friend?: No Do you have trouble with day-to-day activities such as bathing, preparing meals, shopping, managing finances, etc.?: No Are you currently unemployed and looking for a job?: No Are you interested in more education?: No Please select the resources that you would like help with: None Currently or been in a relationship where the following occur: No concerns reported THRIVE Score: 0 KRYSTIAN-7 AMB Questionnaire KRYSTIAN-7 Date KRYSTIAN - 7 assessed: 07/30/23 Source: Developed by Drs. Jose Aldana, Stephanie Lin, Shahriar Soto and colleagues, with an educational jose from [employer]. Physical exam (Primary Care) Vital Signs: Last Vital Signs Temp 97.2 F 03/02/25 09:48 Pulse 69 03/02/25 09:48 Resp 12 03/02/25 09:48 BP 100/68 03/02/25 09:48 Pulse Ox 98 03/02/25 09:48 Oxygen Delivery Method Room Air 03/02/25 09:48 Tobacco/Smoking Status: Tobacco use Status Tobacco use date assessed 03/02/25 03/02/25 09:49 Patient Tobacco Use Status Never used Tobacco 03/02/25 09:45 e-Cigarette/Vaping Use Never Used 03/02/25 09:45 Thrive Assessment: Date of Thrive Assessment Date Thrive assessed 12/26/24 03/02/25 09:45 Currently or been in a relationship where the following occur: No concerns reported Coding Level of Care Code Est Pt Level 4 (78214) Complex EM visit Add On G2211 Diagnoses Hospital discharge follow-up Z09 Seizures R56.9 Influenza vaccination declined Z28.21 Assessment & Plan Assessment & Plan (1) Hospital discharge follow-up: Code(s): Z09 - Encounter for follow-up examination after completed treatment for conditions other than malignant neoplasm Category: Medical (2) Seizures: Code(s): R56.9 - Unspecified convulsions Category: Medical (3) Influenza vaccination declined: Code(s): Z28.21 - Immunization not carried out because of patient refusal Category: Medical Plan . Medications: Changed 2 From docusate sodium (Stool Softener) 100 mg PO BID 112 tabs 0RF To docusate sodium (Stool Softener) 200 mg (2 x 100 mg) PO BID 360 tabs 0RF 90 days Patient Instructions: Patient Instructions Please monitor him for fever, chills, cough, shortness of breath, as this could be signs of pneumonia. His exam is normal today. I recommend seeking medical advice if he were to develop any symptoms. - Continue all your medications as they are currently prescribed. - We will send a refill for your stool softener, docusate, to the [place] pharmacy. The dose will be for two tablets to be taken twice a day. - Keep your scheduled appointment with your regular doctor, Dr. Oliva, in April.
[2025-03-02 09:48] VITALS: BP 100/68; PULSE 69; RESP 12; TEMP 36.2; O2SAT 98
--- OUTSIDE RECORDS SUMMARY | 2025-03-02 10:53 | XMS_ITS | Clinical Summary ---
Author Organization [facility] Address [address] [place] [phone] Phone Care Team Providers Care Customer Account Administrator Name Role Phone René Oliva MD Primary [...] capsule Take by mouth Active nystatin (MYCOSTATIN) 680950 UNIT/ML suspension 2 Active simethicone (MYLICON) 80 [...] Medicaid [place] Care Teams Customer Account Administrator Relationship Specialty Start Date End Date René Oliva MD [address] [place] [address] PCP - General Family Medicine 02/10/22
--- OUTSIDE RECORDS SUMMARY | 2025-03-02 10:53 | XMS_ITS | Encounter Summary ---
Author Organization [facility] Address [address] [facility] [address] [place] [address] Phone Care Team Providers Care Beet End Supervisor Name Role Phone René Oliva MD Primary Care Provider Reason for Visit * Reason Comments Med Refill Encounter Details Date Type Department Care Team (Late st Contact Info) Description 02/09/2023 [facility]ill [facility] [address] [place] [address] Antelmo Davis MD Social History [...] on filedocumented in this encounter Care Teams Beet End Supervisor Relationship Specialty Start Date End Date René Oliva MD [address] [place] [phone] PCP - General Family Medicine 02/10/22 documented as of this encounter
--- OUTSIDE RECORDS SUMMARY | 2025-03-02 10:53 | XMS_ITS | Continuity of Care Document ---
Author Organization [facility] [address] [facility] [address] [place] [address] Phone [phone] Social History Type Date Description Comments Sex Male Sex Unknown Medical Devices Description No Information Available Encounters Description No Information Available Assessments Description No Information Available Plan of Treatment No Information Available Functional Status Description No Information Available Mental Status Description No Information Available Referrals Description No Information Available
== END 2025-03-02 11:55 | disposition home or self-care (01) ==
LOC: HO.HMCFM 09:43
PROVIDERS: PCP Family Medicine; Visit Provider Nurse Practitioner Family
DX: Z09 Encounter for follow-up examination after completed treatment for conditions other than malignant neoplasm (principal); R56.9 Unspecified convulsions; Z28.21 Immunization not carried out because of patient refusal

== ENCOUNTER → 2025-03-02 09:42 | Outpatient (BNVA) | payer MEDICARE, MEDICAID, SELFPAY | PROVIDERS: PCP Family Medicine; Visit Provider Nurse Practitioner Family | DX: Z09 Encounter for follow-up examination after completed treatment for conditions other than malignant neoplasm (principal); R56.9 Unspecified convulsions; Z28.21 Immunization not carried out because of patient refusal | CPT/HCPCS: 99212 ==

== ENCOUNTER 2025-03-05 12:59 | Outpatient (AMB) | payer MEDICARE, MEDICAID, SELFPAY ==
--- NOTE | 2025-03-05 13:04 | A.OFFVIS_ITS ---
Intake Visit Reasons: urinary incontinence Intake Note: Patient is present for Urinary Incontinence Urology Med: Vitamin C, Methenamine Antibiotic Allergy:None Blood Thinner: None Professor Of Social Work Required: No Building Energy Consultant: Building Energy Consultant Present Accompanied by: METAL DIE FINISHER Allergies No Known Allergies Allergy (Unknown, Verified 03/05/25 13:36) none Medication List - Last Reconciled 03/05/25 by DAVID Antonio acetaminophen 650 mg (2 x 325 mg) PO Q6H PRN 30 days ascorbic acid (vitamin C) 1 g PO DAILY 90 days bisacodyl 10 mg OR DAILY PRN cholecalciferol (vitamin D3) 50 mcg PO QAM clotrimazole 1% 1 appl topical BID 2 weeks diazepam (Valtoco) 5 mg (0.1 mL) intranasal DAILY 30 days disposable gloves (Disposable Latex-Free Gloves) As directed size medium /large docusate sodium (Stool Softener) 200 mg (2 x 100 mg) PO BID 90 days ferrous gluconate 324 mg PO DAILY 30 days guaifenesin ER (Mucinex) 600 mg PO Q12H PRN lacosamide 150 mg PO 1 tab in am, 0.5 tabs at noon, 2 tabs in the pm; lactulose (Enulose) 30 mL PO TID PRN lamotrigine 200 mg PO TID lamotrigine 100 mg PO BEDTIME levetiracetam (Keppra) 1,500 mg PO BID linaclotide (Linzess) 290 mcg PO DAILY magnesium hydroxide (Milk Of Magnesia Concentrated) 30 mL PO BEDTIME magnesium oxide 400 mg PO DAILY methenamine hippurate 1 g PO DAILY 90 days metoclopramide HCl (Reglan) 10 mg PO ONCE miscellaneous medical supply Extra large briefs 1 month miscellaneous medical supply Complete catheter kit 1 month miscellaneous medical supply Reusable under pads 1 month omeprazole 20 mg PO DAILY oxcarbazepine (Trileptal) 600 mg PO .afternoon oxcarbazepine (Trileptal) 300 mg PO .evening oxcarbazepine (Trileptal) 900 mg PO BEDTIME polyethylene glycol 3350 17 grams PO BID risperidone (Risperdal) 2 mg PO BID simethicone 80 mg PO TID sodium phosphates 19-7 gram/118 mL (Fleet Enema) 118 mL OR DAILY PRN starch (thickening) (Thick-It oral powder) 1 ea PO TIDWMEAL underpads As directed zinc oxide 13% (Desitin Daily Defense) 1 appl topical BID PRN 30 days HPI Comments Details: Andrei is a pleasant 64 year old male patient of Dr. Oliva who is accompnaied by his FACILITY DESIGNER worker from his [facility]. He has a PMH of a TBI, constipation, and seizures. He presents to the office today for a follow up. In discussion with FACILITY DESIGNER was accompanied by the patient today they deny patient to have any bothersome urinary issues or concerns. His baseline urinary status is incontinence of urine and stool. Patient with a previous history of elevated PSA likely related to urinary tract infection. He was unable to provide us with urinalysis today as patient is typically incontinent urine however PVR 20ml's previous workup has included micorgen 04/24 that noted Klebsiella pneumoniae 68%. Enterococcus faecalia 18%, and Raoultella omithinolytica 11%. PSAs are as follows: PSA 02/22 24.7, 07/24 0.6 Previous workup has included a retroperitoneal ultrasound 04/24 noting right kidney with no calculi and or hydronephrosis. Left kidney with no lesions and or hydronephrosis noted. The bladder is partially distended, limiting evaluation as patient is incontinent of urine. Prostate volume is approximately 37 mL. The patient does answer however is extremely slow to respond and responds appropriately to yes or no questions. Staff report they attempt to toilet patient every 2-3 hours to avoid incontinent episodes. Patient and FACILITY DESIGNER worker deny patient to have experienced any fever, chills, and or hematuria. All questions were answered. We did discussed obtaining more recent PSA. [facility] Medical History Small bowel obstruction Constipation Seizures TBI (traumatic brain injury) Surgical History History of craniotomy Family History Father Dementia Chronic mental illness Mother Hypertension Social History (Updated 12/26/24 @ 12:18 by Roseanna Spear MA) Housing: Other Housing Other:: Half-Way Alcohol intake: never Patient Tobacco Use Status: Never used Tobacco e-Cigarette/Vaping Use: Never Used Second Hand Smoke Exposure: No service: No Current occupational status: disabled Current occupational exposures/hazards: No Cognitive needs: Yes Hearing needs: Yes Vision needs: No Review of Systems Const Reports as per HPI Eyes Reports no additional complaints ENT Reports no additional complaints Card Reports no additional complaints Resp Reports no additional complaints GI Reports as per [facility] Reports as per HPI Musc Reports as per HPI Neuro Reports as per HPI Psych Reports no additional complaints Endo Reports no additional complaints Riaz/Lymph Reports no additional complaints Aller/Immun Reports no additional complaints Physical Exam Const General: cooperative, comfortable, no acute distress, well developed, alert, awake and tired appearing Orientation/consciousness: oriented to person Limitations: other limitations (stretcher) HEENT Head: Yes normal to inspection Eyes General: appearance normal, both eyes and all related structures Neck Neck: Yes normal visual inspection Chest Chest palpation & inspection: normal inspection of the chest Resp Effort & Inspection: normal respiratory effort Cardio Rate: regular rate GI Inspection: Yes normal to inspection Skin General skin exam: no rashes or lesions noted Neuro General: oriented to person Extrem General: Yes normal to inspection Psych Appearance: well kempt Mental Status: other (patient with PMH of TBI slow to respond and poor historian) Speech and movement: Slowed speech present (Psych) and Slowed movement present (Neuro) Attitude: cooperative Insight: Limited insight present (Psych) Judgement: Limited judgement present (Psych) Office Procedures Post Void Residual Post Residual Void Post Void Residual (PVR): 20 [id number] Void Residual by ultrasound Assessment & Plan Assessment & Plan (1) BPH (benign prostatic hyperplasia): Code(s): N40.0 - Benign prostatic hyperplasia without lower urinary tract symptoms Category: Medical (2) Elevated PSA: Code(s): R97.20 - Elevated prostate specific antigen [PSA] Category: Medical (3) Incontinence: Code(s): R32 - Unspecified urinary incontinence Category: Medical (4) Recurrent UTI: Code(s): N39.0 - Urinary tract infection, site not specified Category: Medical Plan Unable to obtain urine for urinalysis as patient unable to void however PVR 20 mL. Continue methenamine and vitamin-C as discussed and prescribed. Will obtain more recent PSA. Patient's staff deny patient to have any UTIs and or UTI like symptoms since last office visit. Patient and staff currently deny any bothersome urinary issues or concerns. All questions were answered. Will continue surveillance monitoring. We also discussed the importance of continuing with timed/scheduled voiding. Follow-up in 1 year with PSA now and in 1 year; or sooner with any issues, concerns, and or questions. Orders: Orders AMB Post Void Residual by ultrasound Today N32.0 - Bladder-neck obstruction Prostate Specific Antigen Today N40.0 - Benign prostatic hyperplasia without lower urinary tract symptoms, R97.20 - Elevated prostate specific antigen [PSA] Medications: Refilled methenamine hippurate 1 g PO DAILY 90 tabs 1RF 90 days N39.0 - Urinary tract infection, site not specified ascorbic acid (vitamin C) 1 g PO DAILY 90 caps 0RF 90 days Coding Level of Care Code Est Pt Level 3 (29390) Complex EM visit Add On G2211 Diagnoses BPH (benign prostatic hyperplasia) N40.0 Elevated PSA R97.20 Incontinence R32 Recurrent UTI N39.0 CPT Codes Post Residual Void - PVR CPT Code: [id number] Void Residual by ultrasound ([id number])
== END 2025-03-05 13:33 | disposition home or self-care (01) ==
LOC: HO.HUSH 12:59
PROVIDERS: PCP Family Medicine; Visit Provider Nurse Practitioner Family
DX: N40.0 Benign prostatic hyperplasia without lower urinary tract symptoms (principal); R97.20 Elevated prostate specific antigen [PSA]; R32 Unspecified urinary incontinence; N39.0 Urinary tract infection, site not specified
CPT/HCPCS: 99213; G2211

== ENCOUNTER → 2025-03-05 12:59 | Outpatient (BNVA) | payer MEDICARE, MEDICAID, SELFPAY | PROVIDERS: PCP Family Medicine; Visit Provider Nurse Practitioner Family | DX: N40.0 Benign prostatic hyperplasia without lower urinary tract symptoms (principal); R39.81 Functional urinary incontinence; R97.20 Elevated prostate specific antigen [PSA]; N39.0 Urinary tract infection, site not specified; Z87.820 Personal history of traumatic brain injury | CPT/HCPCS: 51798; 99212 ==

== ENCOUNTER 2025-04-05 11:20 | Outpatient (AMB) | payer MEDICARE, MEDICAID, SELFPAY ==
--- NOTE | 2025-04-05 11:42 | MHC.PC.OV ---
Vital Signs 04/05/25 11:48 Height 5 ft 10 in Weight 178 lb BMI 25.5 BP 106/66 Blood Pressure Location Lt brachial Position Sitting Respiration 16 Pulse 71 Pulse Source Pulse Oximeter Temp 97.5 F Temp Source Temporal Artery Scan Pulse Oximetry (%) 97 Oxygen Delivery Method Room Air Intake Visit Reasons: Chronic conditions Intake Note: patient here for follow up on chronic conditions Solderer Production Line Required: No Solderer Production Line Name: w/ program worker Accompanied by: Other Relationship Allergies No Known Allergies Allergy (Unknown, Verified 04/05/25 11:46) none Tobacco use date assessed: 04/05/25 Fall risk assessment: No Falls in past year Last assessed Fall Risk: 04/05/25 Dental Screening Dental Screen Date: 04/05/25 Did you have a dental visit in the last 12 months?: Yes Did you have a dental problem in the last 6 months where you did not have access to dental care?: No Was dental information given to patient?: Patient has dentist HPI Chronic conditions HPI Details 64-year-old male history 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 Chair/stretcher bound. Seizure d.o. Seizure in January and had f/u w/ K.O. Taking medication as prescribed. Breathing easily today. Lungs CTA Bowel regimen appropriate. Stooling easily. Denies anymore seizure episodes. No other concerns. They state pt is doing well. [facility] Medical History Small bowel obstruction Constipation Seizures TBI (traumatic brain injury) Surgical History History of craniotomy Family History Father Dementia Chronic mental illness Mother Hypertension Social History (Updated 12/26/24 @ 12:18 by Roseanna Spear MA) Housing: Other Housing Other:: Detention Alcohol intake: never Patient Tobacco Use Status: Never used Tobacco e-Cigarette/Vaping Use: Never Used Second Hand Smoke Exposure: No service: No Current occupational status: disabled Current occupational exposures/hazards: No Cognitive needs: Yes Hearing needs: Yes Vision needs: No Questionnaire Thrive Questionnaire Date Thrive assessed: 12/26/24 I am a: Parent/Caregiver What is your living situation today?: I have a steady place to live Within the past 12 months, did the food you bought not last and you didn't have the money to get more?: Never true Within the past 12 months, did you worry whether your food would run out before you got money to buy more?: Never true Do you have trouble paying for medicines?: No Do you have trouble getting transportation to medical appointments?: No Do you have trouble paying your heating and electricity bill?: No Do you have trouble taking care of your child, family member or friend?: No Do you have trouble with day-to-day activities such as bathing, preparing meals, shopping, managing finances, etc.?: No Are you currently unemployed and looking for a job?: No Are you interested in more education?: No Please select the resources that you would like help with: None Currently or been in a relationship where the following occur: No concerns reported THRIVE Score: 0 KRYSTIAN-7 AMB Questionnaire KRYSTIAN-7 Date KRYSTIAN - 7 assessed: 07/30/23 Source: Developed by Drs. Jose Aldana, Stephanie Lin, Shahriar Soto and colleagues, with an educational jose from [employer]. Review of Systems Const Denies chills, Denies fatigue, Denies fever(s), Denies headache(s) and Denies weakness ENT Denies dizziness and Denies headache(s) Card Denies chest pain, Denies lightheadedness, Denies dyspnea and Denies other (Palpitations) Resp Denies cough, Denies dyspnea, Denies wheezing and Denies other ( shortness of breath) Musc Denies numbness and Denies tingling Neuro Denies dizziness, Denies headache(s), Denies numbness, Denies tingling, Denies paresthesias and Denies weakness Psych Denies anxiety and Denies depression Endo Denies fatigue Aller/Immun Denies wheezing Physical exam (Primary Care) Vital Signs: Last Vital Signs Temp 97.5 F 04/05/25 11:48 Pulse 71 04/05/25 11:48 Resp 16 04/05/25 11:48 BP 106/66 04/05/25 11:48 Pulse Ox 97 04/05/25 11:48 Oxygen Delivery Method Room Air 04/05/25 11:48 BMI result Body Mass Index 25.5 Tobacco/Smoking Status: Tobacco use Status Tobacco use date assessed 04/05/25 04/05/25 11:53 Patient Tobacco Use Status Never used Tobacco 04/05/25 11:44 e-Cigarette/Vaping Use Never Used 04/05/25 11:44 Thrive Assessment: Date of Thrive Assessment Date Thrive assessed 12/26/24 04/05/25 11:44 Currently or been in a relationship where the following occur: No concerns reported Const General: no acute distress and well developed Nutritional Appearance: well nourished Orientation/consciousness: patient oriented x3 HENMT Head: Yes normocephalic and Yes atraumatic Eyes General: appearance normal, both eyes and all related structures Pupils: Equal, round and reactive pupils present EOM: EOMs intact bilaterally Resp Effort & Inspection: normal respiratory effort Auscultation: clear to auscultation bilaterally Cardio Rate: regular rate Rhythm: regular rhythm Heart sounds: S1 normal heart sound present, S2 normal heart sound present, no gallops, no murmurs and no rubs Neuro General: patient oriented x3 and No gait normal Cranial nerves: Yes Equal, round and reactive pupils present Psych Affect: normal affect Coding Level of Care Code Est Pt Level 4 (16593) Diagnoses Incontinence R32 Seizures R56.9 Constipation K59.00 Assessment & Plan Assessment & Plan (1) Incontinence: Code(s): R32 - Unspecified urinary incontinence Category: Medical (2) Seizures: Code(s): R56.9 - Unspecified convulsions Category: Medical (3) Constipation: Code(s): K59.00 - Constipation, unspecified Category: Medical Plan 64-year-old male history 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 Chair/stretcher bound. Seizure d.o. Seizure in January and had f/u w/ K.[facility]. Taking medication as prescribed. Breathing easily today. Lungs CTA Bowel regimen appropriate. Stooling easily. Incontinent of urine: Continue methenamine and vitamin-C as discussed and prescribed for UTI prevention. Adult diapers and pads
[2025-04-05 11:48] VITALS: BP 106/66; PULSE 71; RESP 16; TEMP 36.4; O2SAT 97; BMI 25.5
== END 2025-04-05 13:08 | disposition home or self-care (01) ==
LOC: HO.HMCFM 11:21
PROVIDERS: PCP Family Medicine; Visit Provider Family Medicine
DX: R32 Unspecified urinary incontinence (principal); R56.9 Unspecified convulsions; K59.00 Constipation, unspecified

== ENCOUNTER → 2025-04-05 11:20 | Outpatient (BNVA) | payer MEDICARE, MEDICAID, SELFPAY | PROVIDERS: PCP Family Medicine; Visit Provider Family Medicine | DX: R32 Unspecified urinary incontinence (principal); R56.9 Unspecified convulsions; K59.00 Constipation, unspecified | CPT/HCPCS: 99212 ==

== ENCOUNTER 2025-04-24 11:28 | Outpatient (AMB) | payer MEDICARE, MEDICAID, SELFPAY ==
--- NOTE | 2025-04-24 11:33 | A.OFFPC_ITS ---
Vital Signs 04/24/25 11:39 Height 5 ft 10 in Weight 178 lb BMI 25.5 BMI Reason not done Patient refused/unable BP 118/52 L Blood Pressure Location Lt brachial Position Sitting Respiration 15 Pulse 80 Pulse Source Pulse Oximeter Temp 98.3 F Temp Source Temporal Artery Scan Pulse Oximetry (%) 97 Oxygen Delivery Method Room Air Intake Visit Reasons: Extended Exam - Pt. has Medicare, resched Intake Note: Yi presents in the office today for an extended exam for chronic conditions. Educational Specialist Required: No Allergies No Known Allergies Allergy (Unknown, Verified 04/24/25 11:35) none Medication List - Last Reconciled 04/24/25 by René Oliva MD acetaminophen 650 mg (2 x 325 mg) PO Q6H PRN 30 days ascorbic acid (vitamin C) 1 g PO DAILY 90 days bisacodyl 10 mg ND DAILY PRN cholecalciferol (vitamin D3) 50 mcg PO QAM diazepam (Valtoco) 10 mg intranasal DAILY disposable gloves (Disposable Latex-Free Gloves) As directed size medium /large docusate sodium (Stool Softener) 200 mg (2 x 100 mg) PO BID 90 days ferrous gluconate 324 mg PO DAILY 30 days lacosamide 150 mg PO 1 tab in am, 0.5 tabs at noon, 2 tabs in the pm; lactulose (Enulose) 30 mL PO TID PRN lamotrigine 200 mg PO TID lamotrigine 100 mg PO BEDTIME levetiracetam (Keppra) 1,500 mg PO BID linaclotide (Linzess) 290 mcg PO DAILY magnesium hydroxide (Milk Of Magnesia Concentrated) 30 mL PO BEDTIME magnesium oxide 400 mg PO DAILY methenamine hippurate 1 g PO DAILY 90 days metoclopramide HCl (Reglan) 10 mg PO ONCE miscellaneous medical supply Extra large briefs 1 month miscellaneous medical supply Complete catheter kit 1 month miscellaneous medical supply Reusable under pads 1 month omeprazole 20 mg PO DAILY oxcarbazepine (Trileptal) 600 mg PO .afternoon oxcarbazepine (Trileptal) 300 mg PO .evening oxcarbazepine (Trileptal) 900 mg PO BEDTIME polyethylene glycol 3350 17 grams PO BID risperidone (Risperdal) 2 mg PO BID simethicone 80 mg PO TID sodium phosphates 19-7 gram/118 mL (Fleet Enema) 118 mL ND DAILY PRN starch (thickening) (Thick-It oral powder) 1 ea PO TIDWMEAL underpads As directed zinc oxide 13% (Desitin Daily Defense) 1 appl topical BID PRN 30 days Tobacco use date assessed: 04/24/25 Fall risk assessment: No Falls in past year Last assessed Fall Risk: 04/24/25 Dental Screening Dental Screen Date: 04/24/25 Did you have a dental visit in the last 12 months?: Yes Did you have a dental problem in the last 6 months where you did not have access to dental care?: No Was dental information given to patient?: Patient has dentist HPI Extended Exam - Pt. has Medicare, resched HPI Details 64 y/o male presents for an extended exa m with f/u labs and health maint. No recent labs to review. They note pt was at [facility] yesterday for altered mental status with abd. pain. [facility] Medical History Small bowel obstruction Constipation Seizures TBI (traumatic brain injury) Surgical History History of craniotomy Family History Father Dementia Chronic mental illness Mother Hypertension Social History (Updated 04/24/25 @ 11:37 by Roseanna Spear CMA) Housing: Other Housing Other:: Snf Alcohol intake: never Patient Tobacco Use Status: Never used Tobacco e-Cigarette/Vaping Use: Never Used Second Hand Smoke Exposure: No service: No Current occupational status: disabled Current occupational exposures/hazards: No Cognitive needs: Yes Hearing needs: Yes Vision needs: No Questionnaire Thrive Questionnaire Date Thrive assessed: 12/26/24 KRYSTIAN-7 AMB Questionnaire KRYSTIAN-7 Date KRYSTIAN - 7 assessed: 07/30/23 Source: Developed by Drs. Jose Aldana, Stephanie Lin, Shahriar Soto and colleagues, with an educational jose from [employer]. Review of Systems Const Denies chills, Denies fatigue, Denies fever(s), Denies headache(s) and Denies weakness Eyes Denies change in vision ENT Denies dizziness, Denies headache(s), Denies hearing loss, Denies nasal congestion, Denies sinus pain, Denies sinus pressure and Denies sore throat Card Denies chest pain, Denies lightheadedness, Denies dyspnea and Denies other (palpitations) Resp Denies cough, Denies dyspnea and Denies wheezing GI Denies abdominal pain, Denies melena, Denies hematochezia, Denies change in bowel habits, Denies dyspepsia and Denies nausea Denies hematuria and Denies dysuria Musc Denies abnormal gait, Denies myalgias, Denies arthralgias, Denies numbness and Denies tingling Skin/Breast Denies rash, Denies unusual bruising and Denies wounds Neuro Denies abnormal gait, Denies dizziness, Denies headache(s), Denies memory loss, Denies numbness, Denies Sensory deficit (Neuro), Denies tingling and Denies weakness Psych Denies anxiety, Denies depression and Denies memory loss Endo Denies cold intolerance, Denies fatigue, Denies heat intolerance, Denies polydipsia and Denies polyuria Riaz/Lymph Denies easy bleeding and Denies easy bruising Aller/Immun Denies wheezing Physical exam (Primary Care) Vital Signs: Last Vital Signs Temp 98.3 F 04/24/25 11:39 Pulse 80 04/24/25 11:39 Resp 15 04/24/25 11:39 BP 118/52 L 04/24/25 11:39 Pulse Ox 97 04/24/25 11:39 Oxygen Delivery Method Room Air 04/24/25 11:39 BMI result Body Mass Index 25.5 Tobacco/Smoking Status: Tobacco use Status Tobacco use date assessed 04/24/25 04/24/25 11:38 Patient Tobacco Use Status Never used Tobacco 04/24/25 11:37 e-Cigarette/Vaping Use Never Used 04/24/25 11:37 Thrive Assessment: Date of Thrive Assessment Date Thrive assessed 12/26/24 04/24/25 11:35 Const General: no acute distress, well developed, alert and awake Nutritional Appearance: well nourished Orientation/consciousness: patient oriented x3 HENMT Other: S/P TBI Ears: hearing grossly normal bilaterally and TM's normal bilaterally General nose exam: Normal external nose present and Normal nares present Mouth: Normal oral and palatal mucosa present and moist mucous membranes Teeth and gingiva: dentition normal Throat: Yes posterior oropharynx normal Eyes Other: Pupils reactive General: appearance normal, both eyes and all related structures EOM: EOMs intact bilaterally Neck Neck: Yes normal visual inspection, Yes no lymphadenopathy and Yes trachea midline Thyroid: Thyroid normal Carotids: no bruits Lymphatic: no lymphadenopathy noted Chest Chest palpation & inspection: normal inspection of the chest Resp Effort & Inspection: normal respiratory effort Auscultation: clear to auscultation bilaterally Cardio Rate: regular rate Rhythm: regular rhythm Heart sounds: S1 normal heart sound present, S2 normal heart sound present, no gallops, no murmurs and no rubs Bruits: no abdominal aortic bruits and no carotid bruits GI Palpation (GI): No Abdominal aortic bruit present, Soft to palpation, nontender, No hepatosplenomegaly present and No Rebound tenderness present Auscultation: normal bowel sounds General: Yes no CVA tenderness Back/Spine/Pelvis Back: no CVA tenderness Cervical Spine: cervical ROM normal and No Cervical spine tenderness Thoracic/Lumbar Spine: thoraco-lumbar ROM normal, No pain with thoraco-lumbar ROM, No thoracic spinal tenderness and No lumbar spinal tenderness Skin Lesions: no lesions Rashes: no rashes Trauma: no lacerations or abrasions Wounds: no wounds Nails: normal Neuro Other: R hemiparesis and contractures. R hypereflexia. Nonambulatory, In bed. General: patient oriented x3 Sensory Exam: No Sensory deficit (Neuro) Extrem General: Yes normal to inspection and No edema Psych Appearance: grossly normal Affect: normal affect Attitude: cooperative Coding Level of Care Code Est Pt Level 4 (95083) Diagnoses Adult general medical exam Z00.00 TBI (traumatic brain injury) S06.9X9A Altered mental status R41.82 Screening for prostate cancer Z12.5 Screening for colon cancer Z12.11 Assessment & Plan Assessment & Plan (1) Adult general medical exam: Code(s): Z00.00 - Encounter for general adult medical examination without abnormal findings Category: Medical (2) TBI (traumatic brain injury): Code(s): S06.9X9A - Unspecified intracranial injury with loss of consciousness of unspecified duration, initial encounter Category: Medical (3) Altered mental status: Code(s): R41.82 - Altered mental status, unspecified Category: Medical (4) Screening for prostate cancer: Code(s): Z12.5 - Encounter for screening for malignant neoplasm of prostate Category: Medical (5) Screening for colon cancer: Code(s): Z12.11 - Encounter for screening for malignant neoplasm of colon Category: Medical Plan Patient presents for extended exam and also to follow-up recent visit to the emergency department last week for mental status change with abdominal pain. Patient was seen at [facility]. Chest x-ray, EKG, lab work and CT abdomen pelvis were all unremarkable. Patient was hydrated and discomfort resolved. Frequently gets constipation. Keep patient well hydrated and follow bowel regimen protocol. If still having issues with constipation despite bowel regimen protocol, follow-up with Gastroenterology. Examination today is at baseline. Patient has right hemiparesis secondary to traumatic brain injury. Physical examination form is filled out today. Screening for prostate cancer: Followed by urology and they have ordered PSA level. Screening for colon cancer: Followed by Gastroenterology, Dr. Spangler.
[2025-04-24 11:39] VITALS: BP 118/52; PULSE 80; RESP 15; TEMP 36.8; O2SAT 97; BMI 25.5
--- OUTSIDE RECORDS SUMMARY | 2025-04-24 12:51 | XMS_ITS | Continuity of Care Document ---
Author Organization [facility] [address] [place] [address] Phone [phone] Social History Type Date Description Comments Sex Male Sex Unknown Medical Devices Description No Information Available Encounters Description No Information Available Assessments Description No Information Available Plan of Treatment No Information Available Functional Status Description No Information Available Mental Status Description No Information Available Referrals Description No Information Available
--- OUTSIDE RECORDS SUMMARY | 2025-04-24 12:51 | XMS_ITS | Encounter Summary ---
Author Organization [facility] Address [address] [facility] [address] [place] [address] Phone Care Team Providers Care Molder Punch Name Role Phone René Oliva MD Primary Care Provider Reason for Visit * Reason Comments Med Refill Encounter Details Date Type Department Care Team (Late st Contact Info) Description 02/09/2023 Refill [facility] [address] [facility] Ad[facility]to [facility] [address] [place] [address] Antelmo Davis MD Social History [...] on filedocumented in this encounter Care Teams Molder Punch Relationship Specialty Start Date End Date René Oliva MD [address] [place] [id number] PCP - General Family Medicine 02/10/22 documented as of this encounter
--- OUTSIDE RECORDS SUMMARY | 2025-04-24 12:51 | XMS_ITS | Clinical Summary ---
Author Organization [facility] Address [address] [address] Phone Care Team Providers Care Packager Or Packer And Weigher Name Role Phone René Oliva MD Primary [...] capsule Take by mouth Active nystatin (MYCOSTATIN) 920618 UNIT/ML suspension 2 Active simethicone (MYLICON) 80 [...] [place] Care Teams Packager Or Packer And Weigher Relationship Specialty Start Date End Date René Oliva MD [address] [place] [id number] PCP - General Family Medicine 02/10/22
== END 2025-04-24 12:59 | disposition home or self-care (01) ==
LOC: HO.HMCFM 11:28
PROVIDERS: PCP Family Medicine; Visit Provider Family Medicine
DX: Z00.00 Encounter for general adult medical examination without abnormal findings (principal); S06.9X9A Unspecified intracranial injury with loss of consciousness of unspecified duration, initial encounter; R41.82 Altered mental status, unspecified; Z12.5 Encounter for screening for malignant neoplasm of prostate; Z12.11 Encounter for screening for malignant neoplasm of colon

== ENCOUNTER → 2025-04-24 11:28 | Outpatient (BNVA) | payer MEDICARE, MEDICAID, SELFPAY | PROVIDERS: PCP Family Medicine; Visit Provider Family Medicine | DX: Z09 Encounter for follow-up examination after completed treatment for conditions other than malignant neoplasm (principal); R10.9 Unspecified abdominal pain; R41.82 Altered mental status, unspecified; K59.00 Constipation, unspecified; I69.351 Hemiplegia and hemiparesis following cerebral infarction affecting right dominant side | CPT/HCPCS: 99212 ==